=== PATIENT | female | born 1960 | race American Indian/Alaskan Native ===

== ENCOUNTER 2016-10-16 09:05 | Outpatient (CLI) | payer MEDICAID | END 2016-10-16 09:06 | disposition home or self-care (01) | LOC: LAB 09:05 | PROVIDERS: ATTEND Internal Medicine | DX: R06.02 Shortness of breath (principal) | CPT/HCPCS: 36415; 80061; 82785; 84439; 84443 ==

== ENCOUNTER 2017-09-23 07:01 | Day surgery (SDC) | payer MEDICAID ==
[2017-09-23] MEDS ORDERED: NACL 0.9% 500 ML 500 ML ONE (08:33)
[2017-09-23 08:57] LABS: Basophils # (Auto) 0.1 K/mm3 (0.0-0.1); Basophils % (Auto) 1.3 % (0.0-1.8); Eosinophils # (Auto) 0.3 K/mm3 (0.0-0.4); Hemoglobin 13.1 gm/dl (10.1-14.3); Lymphocytes # (Auto) 2.3 K/mm3 (1.2-5.4); Lymphocytes % (Auto) 38.6 % (13.4-35.0); Mean Corpuscular HGB Conc 33 % (30-34); Mean Corpuscular Hemoglobin 30 pg (28-32); Mean Corpuscular Volume 91 fl (79-97); Monocytes # (Auto) 0.5 K/mm3 (0.0-0.8); Monocytes % (Auto) 8.7 % (0.0-7.3); Platelet Count 241 K/mm3 (140-440); Red Blood Count 4.42 M/mm3 (3.65-5.03); Red Cell Distribution Width 15.2 % (13.2-15.2)
[2017-09-23] MEDS ORDERED: ECOTRIN PO NR (09:00)
[2017-09-23] MEDS ORDERED: NACL 0.9% 500 ML 500 ML IV SCH (09:00)
[2017-09-23 09:10] LABS: BUN/Creatinine Ratio 19; Blood Urea Nitrogen 15 mg/dL (7-17); Calcium 8.4 mg/dL (8.4-10.2); Hemolysis Index 3
[2017-09-23 09:16] LABS: INR 0.97 (0.87-1.13)
[2017-09-23] MEDS ORDERED: HEPARIN/NS 5000 UNIT/500ML(CATH LAB) 1,000 ML IR ONE (09:51)
[2017-09-23] MEDS ORDERED: HEPARIN 10,000 UNITS/10 ML ONE (09:51)
[2017-09-23] MEDS ORDERED: CALAN ONE (09:51)
[2017-09-23] MEDS ORDERED: NITROGLYCERIN SYRINGE 3 ML ONE (09:52)
[2017-09-23] MEDS ORDERED: XYLOCAINE 2% INFILTRATI ONE (09:52)
[2017-09-23] MEDS ORDERED: SUBLIMAZE ONE (09:56)
[2017-09-23] MEDS ORDERED: VERSED ONE (09:56)
--- NOTE | 2017-09-23 10:52 | Short Stay Summary ---
Short Stay Documentation Date of service: 09/23/17 - History H&P: obtained from office - Allergies and Medications Current Medications: Allergies sulfamethoxazole [From Bactrim] Allergy (Verified 04/21/16 02:53) Hives trimethoprim [From Bactrim] Allergy (Verified 04/21/16 02:53) Hives Home Medications Medication Instructions Recorded Confirmed Last Taken Type Aspirin [Aspirin BABY CHEW TAB] 81 mg PO QDAY 04/21/16 09/23/17 09/22/17 History 81mg Fluticasone/Salmeterol [Advair 1 puff IH BID #1 blst.w.dev 04/21/16 09/23/17 Rx Diskus 500-50 mcg] 1 Bimatoprost [Lumigan] 2 drops OU QHS 09/23/17 09/23/17 09/22/17 History 2 Metoprolol Xl [Metoprolol 100 mg PO DAILY 09/23/17 09/23/17 09/22/17 History SUCCINATE ER TAB] 100mg Tiotropium Mascot [Spiriva] 1 puff INHALATION DAILY 09/23/17 09/23/17 09/22/17 History 1 amLODIPine 200 mg PO DAILY 09/23/17 09/23/17 09/22/17 History 200mng Active Medications Sodium Chloride (Nacl 0.9% 500 Ml) 500 mls @ 50 mls/hr IV DIRECT WHITNEY Stop: 09/23/17 18:59 Last Admin: 09/23/17 09:01 Dose: 50 mls/hr - Physical exam General appearance: no acute distress Integumentary: no rash HEENT: Atraumatic Lungs: Clear to auscultation Breasts: deferred Heart: Regular rate Gastrointestinal: normal Female Genitourinary: deferred Rectal Exam: deferred Extremities: no ischemia, pulses symmetrical Neurological: Normal gait - Brief post op/procedure progress note Date of procedure: 09/23/17 Pre-op diagnosis: Cardiomyopathy, abnormal stress test Post-op diagnosis: same Procedure: LHC and LV gram Anesthesia: MAC Findings: See report Surgeon: VAISHNAVI SRINIVASAN Estimated blood loss: none Pathology: none Condition: stable - Hospital course Hospital course: Uneventful - Disposition Condition at discharge: Good Disposition: DC-01 TO HOME OR SELFCARE Short Stay Discharge Plan Activity: advance as tolerated Weight Bearing Status: Non-Weight Bearing Diet: low fat, low cholesterol, low salt Follow up with: MAYNOR CUELLAR MD [Primary Care Provider] - 7 Days Prescriptions: Amiodarone [Cordarone 200 MG TAB] 200 mg PO DAILY #30 tablet Irbesartan 150 mg PO DAILY #30 tablet
--- NOTE | 2017-09-23 11:52 | Cardiac Catherization Report ---
LEFT HEART CATHETERIZATION INDICATION: 1. Cardiomyopathy, shortness of breath, and chest tightness. 2. Fixed anterior wall defect, on myocardial perfusion imaging scan. PROCEDURES PERFORMED: 1. Selective left and right coronary angiography. 2. Left ventriculography. DESCRIPTION OF PROCEDURE: After obtaining the consent, the patient was draped using sterile technique. A 2% lidocaine was injected into the right wrist. A 5-Swedish vascular sheath was inserted into the right radial artery. A 5-Swedish JL3.5 catheter was used to selectively engage left coronary artery. A 5-Swedish JR4 catheter was used to selectively engage the right coronary artery. A 5-Swedish pigtail catheter was used to perform a left ventriculogram. No complications occurred during the procedure. Hemostasis was achieved at the end of the procedure using manual pressure. SPECIMEN: None. ESTIMATED BLOOD LOSS: Minimal. Sedation administered was 1 mg of IV Versed and 50 mcg of IV fentanyl. Physician and patient [id number] sedation start time is 10:06 a.m. Physician patient [id number] sedation stop time is 10:18 a.m. Total sedation time is 12 minutes. HEMODYNAMICS: 1. The aortic pressure was 165/97. 2. The left ventricular systolic pressure was 170 mmHg. There was no gradient noted across left ventricular outflow tract. 3. The left ventricular end-diastolic pressure was measured at 30 mmHg. CARDIAC STRUCTURES: The left ventricle is dilated. There is evidence of global left ventricular hypokinesis. The ejection fraction is estimated at 35%. CORONARY ANATOMY: 1. This is a right dominant circulation. 2. Left main is angiographically normal. 3. LAD is angiographically normal. 4. Circumflex artery is angiographically normal. 5. The right coronary artery is angiographically normal. IMPRESSION: 1. Angiographically normal coronary circulation. 2. Dilated and hypokinetic left ventricle with an ejection fraction estimated at 35%. 3. Findings are consistent with nonischemic cardiomyopathy. 4. LVEDP measured at 30 mmHg. RECOMMENDATIONS: Continue current medical management for nonischemic cardiomyopathy. JOB# [id number] RONEN/NIK
[2017-09-23 11:58] VITALS: BP 161/77
== END 2017-09-23 13:24 | disposition home or self-care (01) ==
LOC: CATHLABREC 07:01
PROVIDERS: ATTEND Internal Medicine
DX: I42.8 Other cardiomyopathies (principal); I11.0 Hypertensive heart disease with heart failure; I50.9 Heart failure, unspecified; M19.90 Unspecified osteoarthritis, unspecified site; J44.9 Chronic obstructive pulmonary disease, unspecified; G47.30 Sleep apnea, unspecified; E66.9 Obesity, unspecified; F32.9 Major depressive disorder, single episode, unspecified; Z79.82 Long term (current) use of aspirin; Z79.899 Other long term (current) drug therapy
CPT/HCPCS: 36415; 80048; 85025; 85610; 85730; 93005; 93010; 93458; 99156; 99157; C1894; J1644; J2250; J3010; J7040; Q9967

== ENCOUNTER 2018-09-19 13:29 | Emergency (ER) | payer MEDICAID ==
[2018-09-19] MEDS ORDERED: SOLU-Medrol IV ONE (13:49)
[2018-09-19] MEDS ORDERED: ATROVENT IH ONE (13:49)
[2018-09-19] MEDS ORDERED: PROVENTIL IH ONE (13:49)
[2018-09-19] MEDS ORDERED: MORPHINE IV ONE (13:53)
[2018-09-19] MEDS ORDERED: ZOFRAN IV ONE (13:53)
[2018-09-19] MEDS ORDERED: XYLOCAINE 2% INFILTRATI ONE (13:53)
--- NOTE | 2018-09-19 13:53 | Emergency Department Report ---
ED Shortness of Breath HPI - General Chief Complaint: Dyspnea/Respdistress Stated Complaint: YOSSI Time Seen by Provider: 09/19/18 13:43 Source: patient, EMS Mode of arrival: Stretcher Limitations: No Limitations - History of Present Illness Initial Comments: Patient is 58 years old female history of COPD, CHF and hypertension. Patient presented to the ER via EMS for shortness of breath, cough productive freezer greenish sputum for the last 3 days. Patient stated that she has been using her albuterol was not helping. Patient denied any fever or chills. No chest pain. MD Complaint: shortness of breath, cough -: days(s) Severity: moderate Improves With: bronchodilators Known History Of: COPD, congestive heart failure Context: recent URI - Related Data Home Medications Medication Instructions Recorded Confirmed Last Taken Bimatoprost [Lumigan] 1 drops OU QHS 09/23/17 12/08/17 09/22/17 2 Meloxicam [Mobic] 7.5 mg PO QDAY 12/08/17 12/08/17 Unknown Previous Rx's Medication Instructions Recorded Last Taken Type Fluticasone/Salmeterol [Advair 1 puff IH BID #1 blst.w.dev 04/21/16 09/22/17 Rx Diskus 500-50 mcg] 1 Irbesartan 150 mg PO DAILY #30 tablet 09/23/17 Unknown Rx Amiodarone [Cordarone 200 MG TAB] 200 mg PO DAILY #30 tablet 12/10/17 Unknown Rx Arformoterol Nebu [Brovana Nebu] 15 mcg IH Q12HRT #1 ml 12/10/17 Unknown Rx Aspirin [Aspirin BABY CHEW TAB] 81 mg PO QDAY #100 tab.chew 12/10/17 Unknown Rx Budesonide [Pulmicort Respules] 0.5 mg IH Q12HRT #60 nebu 12/10/17 Unknown Rx Furosemide [Lasix TAB] 40 mg PO QDAY #30 tablet 12/10/17 Unknown Rx Latanoprost 0.005% 2 drops OU QPM bottle 12/10/17 Unknown Rx Lisinopril [Zestril TAB] 5 mg PO QDAY #30 tablet 12/10/17 Unknown Rx Metoprolol Xl [Metoprolol 100 mg PO DAILY #30 tablet 12/10/17 Unknown Rx SUCCINATE ER TAB] Potassium Chloride [K-Dur] 20 meq PO QDAY #30 tablet 12/10/17 Unknown Rx Tiotropium [Spiriva] 1 puff IH DAILY #1 cap 12/10/17 Unknown Rx Allergies Allergy/AdvReac Type Severity Reaction Status Date / Time sulfamethoxazole Allergy Hives Verified 04/21/16 02:53 [From Bactrim] trimethoprim [From Bactrim] Allergy Hives Verified 04/21/16 02:53 ED Review of Systems ROS: Stated complaint: YOSSI Other details as noted in HPI Comment: All other systems reviewed and negative Constitutional: denies: chills, fever Respiratory: cough, shortness of breath, SOB with exertion, SOB at rest, wheezing. denies: orthopnea Cardiovascular: denies: chest pain, palpitations Gastrointestinal: denies: abdominal pain, nausea, vomiting, diarrhea, constipation, hematemesis, hematochezia Musculoskeletal: denies: back pain Neurological: denies: headache, weakness, numbness, paresthesias, confusion ED Past Medical Hx - Past Medical History Hx Hypertension: Yes Hx Heart Attack/AMI: Yes (2004) Hx Congestive Heart Failure: Yes Hx Arthritis: Yes Hx Psychiatric Treatment: Yes (PTSD) Hx Asthma: Yes Hx COPD: Yes Additional medical history: hepatitis C, CAD, Sleep apnea, GERD - Surgical History Past Surgical History?: Yes Additional Surgical History: open heart surgery, left knee replacement, apoorva in right leg, surgical repair of disc in neck - Social History Smoking Status: Current Every Day Smoker Substance Use Type: None - Medications Home Medications: Home Medications Medication Instructions Recorded Confirmed Last Taken Type Fluticasone/Salmeterol [Advair 1 puff IH BID #1 blst.w.dev 04/21/16 12/08/17 09/22/17 Rx Diskus 500-50 mcg] 1 Bimatoprost [Lumigan] 1 drops OU QHS 09/23/17 12/08/17 09/22/17 History 2 Irbesartan 150 mg PO DAILY #30 tablet 09/23/17 12/08/17 Unknown Rx Meloxicam [Mobic] 7.5 mg PO QDAY 12/08/17 12/08/17 Unknown History Amiodarone [Cordarone 200 MG TAB] 200 mg PO DAILY #30 tablet 12/10/17 Unknown Rx Arformoterol Nebu [Brovana Nebu] 15 mcg IH Q12HRT #1 ml 12/10/17 Unknown Rx Aspirin [Aspirin BABY CHEW TAB] 81 mg PO QDAY #100 tab.chew 12/10/17 Unknown Rx Budesonide [Pulmicort Respules] 0.5 mg IH Q12HRT #60 nebu 12/10/17 Unknown Rx Furosemide [Lasix TAB] 40 mg PO QDAY #30 tablet 12/10/17 Unknown Rx Latanoprost 0.005% 2 drops OU QPM bottle 12/10/17 Unknown Rx Lisinopril [Zestril TAB] 5 mg PO QDAY #30 tablet 12/10/17 Unknown Rx Metoprolol Xl [Metoprolol 100 mg PO DAILY #30 tablet 12/10/17 Unknown Rx SUCCINATE ER TAB] Potassium Chloride [K-Dur] 20 meq PO QDAY #30 tablet 12/10/17 Unknown Rx Tiotropium [Spiriva] 1 puff IH DAILY #1 cap 12/10/17 Unknown Rx ED Physical Exam - General Limitations: No Limitations General appearance: alert, in no apparent distress - Head Head exam: Present: atraumatic, normocephalic, normal inspection - Eye Eye exam: Present: normal appearance, PERRL - ENT ENT exam: Present: normal exam, normal orophraynx, mucous membranes moist - Neck Neck exam: Present: normal inspection, full ROM. Absent: tenderness, meningismus, lymphadenopathy, thyromegaly - Respiratory Respiratory exam: Present: wheezes, rhonchi, decreased breath sounds, prolonged expiratory. Absent: respiratory distress, rales, stridor, chest wall tenderness, accessory muscle use - Cardiovascular Cardiovascular Exam: Present: regular rate, normal rhythm, normal heart sounds. Absent: bradycardia, tachycardia, irregular rhythm, systolic murmur, diastolic murmur, rubs - GI/Abdominal GI/Abdominal exam: Present: soft, normal bowel sounds. Absent: distended, tenderness, guarding, rebound, rigid, organomegaly, mass, bruit, pulsatile mass, hernia - Extremities Exam Extremities exam: Present: normal inspection, full ROM, normal capillary refill. Absent: pedal edema, calf tenderness - Back Exam Back exam: Present: normal inspection, full ROM - Neurological Exam Neurological exam: Present: alert, oriented X3, CN II-XII intact, normal gait - Skin Skin exam: Present: warm, intact, normal color ED Course Vital Signs 09/19/18 09/19/18 09/19/18 14:00 14:07 14:10 Pulse Rate [ 72 74 72 Anterior Bilateral Throughout] Respiratory 20 18 18 Rate [Anterior Bilateral Throughout] 09/19/18 14:20 Pulse Rate [ 68 Anterior Bilateral Throughout] Respiratory 16 Rate [Anterior Bilateral Throughout] ED Medical Decision Making - Lab Data Result diagrams: 09/19/18 13:57 09/19/18 13:57 - Radiology Data Radiology results: report reviewed Referring Physician: ROBERT LIEBERMAN Patient Name: MABLE NIELSEN Date of : 1960 Sex: Female Report Date: 2018-09-19 Report Status: Finalized Findings [facility] [address] [place] [address] XRay Report Signed Patient: MABLE NIELSEN MR#: [id number] : 1960 Acct:[id number] Age/Sex: 58 / F ADM Date: 09/19/18 Loc: ED Attending Dr: Ordering Physician: RBOERT LIEBERMAN Date of Service: 09/19/18 Procedure(s): XR chest 1V ap Accession Number(s): [id number] cc: ROBERT LIEBERMAN Fluoro Time In Minutes: FINAL REPORT EXAM: XR CHEST 1V AP HISTORY: Shortness of breath TECHNIQUE: Frontal chest radiograph. PRIORS: 01/10/2016. FINDINGS: Unchanged cardiomegaly. Unchanged linear scarring in the left upper lobe. Patchy left lower lobe opacities are seen. There is mild central pulmonary vascular congestion. No pleural effusion. No pneumothorax. No acute osseous abnormality. IMPRESSION: Cardiomegaly with mild central pulmonary vascular congestion. Left lower lobe atelectasis versus pneumonia. Transcribed By: MG Dictated By: HALLIE RENTERIA MD Electronically Authenticated By: HALLIE RENTERIA MD Signed Date/Time: 09/19/181446 DD/ 46 TD/TT: 09/19/181446 - Medical Decision Making Patient is 58 years old female history of COPD, CHF and hypertension. Patient presented to the ER via EMS for shortness of breath, cough productive freezer greenish sputum for the last 3 days. Patient stated that she has been using her albuterol was not helping. Patient denied any fever or chills. No chest pain. Patient stated that she is feeling much better. Lung is clear on both sides. I advised the patient to follow up with her primary care physician in the next 2-3 days and to return to the emergency room if her symptoms are not improved. Critical care attestation.: If time is entered above; I have spent that time in minutes in the direct care of this critically ill patient, excluding procedure time. ED Disposition Clinical Impression: COPD exacerbation, Bronchitis Disposition: DC-01 TO HOME OR SELFCARE Is pt being admited?: No Condition: Stable Instructions: Chronic Obstructive Pulmonary Disease (ED), Chronic Bronchitis (ED) Referrals: PRIMARY CARE, [Primary Care Provider] - 3-5 Days
[2018-09-19 14:13] LABS: Basophils # (Auto) 0.2 K/mm3 (0.0-0.1); Basophils % (Auto) 2.3 % (0.0-1.8); Eosinophils # (Auto) 0.4 K/mm3 (0.0-0.4); Hematocrit 39.1 % (30.3-42.9); Hemoglobin 13.1 gm/dl (10.1-14.3); Lymphocytes # (Auto) 2.1 K/mm3 (1.2-5.4); Lymphocytes % (Auto) 31.1 % (13.4-35.0); Mean Corpuscular HGB Conc 33 % (30-34); Mean Corpuscular Volume 90 fl (79-97); Monocytes # (Auto) 0.6 K/mm3 (0.0-0.8); Monocytes % (Auto) 9.7 % (0.0-7.3); Platelet Count 250 K/mm3 (140-440); Red Blood Count 4.34 M/mm3 (3.65-5.03); Red Cell Distribution Width 14.7 % (13.2-15.2)
[2018-09-19 14:23] LABS: BUN/Creatinine Ratio 14; Blood Urea Nitrogen 14 mg/dL (7-17); Hemolysis Index 30
--- NOTE | 2018-09-19 14:47 | XRay Report ---
FINAL REPORT EXAM: XR CHEST 1V AP HISTORY: Shortness of breath TECHNIQUE: Frontal chest radiograph. PRIORS: 01/10/2016. FINDINGS: Unchanged cardiomegaly. Unchanged linear scarring in the left upper lobe. Patchy left lower lobe opacities are seen. There is mild central pulmonary vascular congestion. No pleural effusion. No pneumothorax. No acute osseous abnormality. IMPRESSION: Cardiomegaly with mild central pulmonary vascular congestion. Left lower lobe atelectasis versus pneu monia.
[2018-09-19] MEDS ORDERED: LEVAQUIN PO ONE (15:05)
== END 2018-09-19 15:49 | disposition home or self-care (01) ==
LOC: ED 13:29
DX: J44.1 Chronic obstructive pulmonary disease with (acute) exacerbation (principal); J40 Bronchitis, not specified as acute or chronic; I11.0 Hypertensive heart disease with heart failure; I50.9 Heart failure, unspecified; I25.2 Old myocardial infarction; M19.90 Unspecified osteoarthritis, unspecified site; F43.10 Post-traumatic stress disorder, unspecified; F17.200 Nicotine dependence, unspecified, uncomplicated; Z79.899 Other long term (current) drug therapy; Z88.2 Allergy status to sulfonamides
CPT/HCPCS: 36415; 71045; 80048; 85025; 93005; 93010; 94640; 96374; 96375; 99284; J2270; J2405; J2930

== ENCOUNTER 2018-11-25 17:03 | Emergency (ER) | payer MEDICAID ==
[2018-11-25 18:09] VITALS: BP 127/79
[2018-11-25 18:33] LABS: Basophils # (Auto) 0.1 K/mm3 (0.0-0.1); Basophils % (Auto) 0.8 % (0.0-1.8); Eosinophils % (Auto) 0.1 % (0.0-4.3); Hematocrit 44.6 % (30.3-42.9); Hemoglobin 14.6 gm/dl (10.1-14.3); Lymphocytes # (Auto) 1.2 K/mm3 (1.2-5.4); Lymphocytes % (Auto) 10.7 % (13.4-35.0); Mean Corpuscular HGB Conc 33 % (30-34); Mean Corpuscular Volume 93 fl (79-97); Monocytes # (Auto) 0.5 K/mm3 (0.0-0.8); Monocytes % (Auto) 4.4 % (0.0-7.3); Platelet Count 241 K/mm3 (140-440); Red Blood Count 4.82 M/mm3 (3.65-5.03); Red Cell Distribution Width 14.8 % (13.2-15.2)
[2018-11-25] MEDS ORDERED: MORPHINE IV ONE (18:36)
[2018-11-25] MEDS ORDERED: NACL 0.9% 1000 ML 1,000 ML IV ONE (18:36)
[2018-11-25] MEDS ORDERED: DECADRON IV ONE (18:36)
[2018-11-25] MEDS ORDERED: TORADOL IV ONE (18:36)
--- NOTE | 2018-11-25 18:48 | Emergency Department Report ---
ED Back Pain/Injury HPI - General Chief Complaint: Back Pain/Injury Stated Complaint: SCIATICA Time Seen by Provider: 11/25/18 17:48 Source: patient Limitations: No Limitations - History of Present Illness Initial Comments: This is a 58-year-old female nontoxic, well nourished in appearance, no acute signs of distress presents to the ED with c/o of acute on chronic lower back p ain. Patient stated that the past 2 days she was moving and developed this pain. Patient states has history of sciatica nerve pain which is similar symptoms as today. Patient states that pain radiates through to his left lower extremity. Patient stated that walking is difficult due to pain. Patient denies any trauma. Denies any bladder or bowel instability. Patient denies any urinary symptoms. Denies any fever, chills, nausea, vomiting, headache, stiff neck, chest pain or shortness of breath. Patient denies any numbness or tingling. Patient has allergies to Bactrim. MD Complaint: back pain -: days(s) (2) Similar Symptoms Previously: Yes Place: home Radiation: left leg Severity: mild Severity scale (0 -10): 10 Quality: aching Consistency: constant Improves With: immobilization Worsens With: movement, walking Context: while lifting, turning/twisting Associated Symptoms: denies other symptoms. denies: confusion, weakness, chest pain, numbness, difficulty walking, cough, difficulty urinating, diaphoresis, incontinence, fever/chills, constipation, headaches, abdominal pain, loss of appetite, malaise, nausea/vomiting, rash, seizure, shortness of breath, syncope - Related Data Home Medications Medication Instructions Recorded Confirmed Last Taken Bimatoprost [Lumigan] 1 drops OU QHS 09/23/17 12/08/17 09/22/17 2 Meloxicam [Mobic] 7.5 mg PO QDAY 12/08/17 12/08/17 Unknown Previous Rx's Medication Instructions Recorded Last Taken Type Fluticasone/Salmeterol [Advair 1 puff IH BID #1 blst.w.dev 04/21/16 09/22/17 Rx Diskus 500-50 mcg] 1 Irbesartan 150 mg PO DAILY #30 tablet 09/23/17 Unknown Rx Amiodarone [Cordarone 200 MG TAB] 200 mg PO DAILY #30 tablet 12/10/17 Unknown Rx Arformoterol Nebu [Brovana Nebu] 15 mcg IH Q12HRT #1 ml 12/10/17 Unknown Rx Aspirin [Aspirin BABY CHEW TAB] 81 mg PO QDAY #100 tab.chew 12/10/17 Unknown Rx Budesonide [Pulmicort Respules] 0.5 mg IH Q12HRT #60 nebu 12/10/17 Unknown Rx Furosemide [Lasix TAB] 40 mg PO QDAY #30 tablet 12/10/17 Unknown Rx Latanoprost 0.005% 2 drops OU QPM bottle 12/10/17 Unknown Rx Lisinopril [Zestril TAB] 5 mg PO QDAY #30 tablet 12/10/17 Unknown Rx Metoprolol Xl [Metoprolol 100 mg PO DAILY #30 tablet 12/10/17 Unknown Rx SUCCINATE ER TAB] Potassium Chloride [K-Dur] 20 meq PO QDAY #30 tablet 12/10/17 Unknown Rx Tiotropium [Spiriva] 1 puff IH DAILY #1 cap 12/10/17 Unknown Rx ALBUTEROL Inhaler (OR & NICU) 2 puff IH QID PRN #1 inhalation 09/19/18 Unknown Rx [ProAir HFA Inhaler] Prednisone [predniSONE 10 mg 10 mg PO .TAPER #1 tab.ds.pk 09/19/18 Unknown Rx (6-Day Pack, 21 Tabs)] levoFLOXacin [Levaquin TAB] 500 mg PO QDAY #7 tablet 09/19/18 Unknown Rx Docusate Sodium [Colace] 100 mg PO BID PRN #14 capsule 11/25/18 Unknown Rx Oxycodone HCl/Acetaminophen 1 each PO Q6HR PRN #12 tablet 11/25/18 Unknown Rx [Percocet 7.5/325 mg] Allergies Allergy/AdvReac Type Severity Reaction Status Date / Time sulfamethoxazole Allergy Hives Verified 04/21/16 02:53 [From Bactrim] trimethoprim [From Bactrim] Allergy Hives Verified 04/21/16 02:53 ED Review of Systems ROS: Stated complaint: SCIATICA Other details as noted in HPI Constitutional: denies: chills, fever Eyes: denies: eye pain, eye discharge, vision change ENT: denies: ear pain, throat pain Respiratory: denies: cough, shortness of breath, wheezing Cardiovascular: denies: chest pain, palpitations Endocrine: no symptoms reported Gastrointestinal: denies: abdominal pain, nausea, diarrhea Genitourinary: denies: urgency, dysuria, discharge Musculoskeletal: back pain. denies: joint swelling, arthralgia Skin: denies: rash, lesions Neurological: denies: headache, weakness, paresthesias Psychiatric: denies: anxiety, depression Hematological/Lymphatic: denies: easy bleeding, easy bruising ED Past Medical Hx - Past Medical History Previous Medical History?: Yes Hx Hypertension: Yes Hx Heart Attack/AMI: Yes (2005) Hx Congestive Heart Failure: Yes Hx Arthritis: Yes Hx Psychiatric Treatment: Yes (PTSD) Hx Asthma: Yes Hx COPD: Yes Additional medical history: hepatitis C, CAD, Sleep apnea, GERD - Surgical History Past Surgical History?: Yes Additional Surgical History: open heart surgery, left knee replacement, apoorva in right leg, surgical repair of disc in neck - Social History Smoking Status: Current Every Day Smoker Substance Use Type: None - Medications Home Medications: Home Medications Medication Instructions Recorded Confirmed Last Taken Type Fluticasone/Salmeterol [Advair 1 puff IH BID #1 blst.w.dev 04/21/16 12/08/17 09/22/17 Rx Diskus 500-50 mcg] 1 Bimatoprost [Lumigan] 1 drops OU QHS 09/23/17 12/08/17 09/22/17 History 2 Irbesartan 150 mg PO DAILY #30 tablet 09/23/17 12/08/17 Unknown Rx Meloxicam [Mobic] 7.5 mg PO QDAY 12/08/17 12/08/17 Unknown History Amiodarone [Cordarone 200 MG TAB] 200 mg PO DAILY #30 tablet 12/10/17 Unknown Rx Arformoterol Nebu [Brovana Nebu] 15 mcg IH Q12HRT #1 ml 12/10/17 Unknown Rx Aspirin [Aspirin BABY CHEW TAB] 81 mg PO QDAY #100 tab.chew 12/10/17 Unknown Rx Budesonide [Pulmicort Respules] 0.5 mg IH Q12HRT #60 nebu 12/10/17 Unknown Rx Furosemide [Lasix TAB] 40 mg PO QDAY #30 tablet 12/10/17 Unknown Rx Latanoprost 0.005% 2 drops OU QPM bottle 12/10/17 Unknown Rx Lisinopril [Zestril TAB] 5 mg PO QDAY #30 tablet 12/10/17 Unknown Rx Metoprolol Xl [Metoprolol 100 mg PO DAILY #30 tablet 12/10/17 Unknown Rx SUCCINATE ER TAB] Potassium Chloride [K-Dur] 20 meq PO QDAY #30 tablet 12/10/17 Unknown Rx Tiotropium [Spiriva] 1 puff IH DAILY #1 cap 12/10/17 Unknown Rx ALBUTEROL Inhaler (OR & NICU) 2 puff IH QID PRN #1 inhalation 09/19/18 Unknown Rx [ProAir HFA Inhaler] Prednisone [predniSONE 10 mg 10 mg PO .TAPER #1 tab.ds.pk 09/19/18 Unknown Rx (6-Day Pack, 21 Tabs)] levoFLOXacin [Levaquin TAB] 500 mg PO QDAY #7 tablet 09/19/18 Unknown Rx Docusate Sodium [Colace] 100 mg PO BID PRN #14 capsule 11/25/18 Unknown Rx Oxycodone HCl/Acetaminophen 1 each PO Q6HR PRN #12 tablet 11/25/18 Unknown Rx [Percocet 7.5/325 mg] ED Physical Exam - General Limitations: No Limitations General appearance: alert, in no apparent distress - Head Head exam: Present: atraumatic, normocephalic - Eye Eye exam: Present: normal appearance - Neck Neck exam: Present: normal inspection, full ROM. Absent: tenderness, m eningismus, lymphadenopathy - Respiratory Respiratory exam: Present: normal lung sounds bilaterally. Absent: respiratory distress, wheezes, rales, rhonchi, stridor, chest wall tenderness, accessory muscle use, decreased breath sounds, prolonged expiratory - Cardiovascular Cardiovascular Exam: Present: regular rate, normal rhythm, normal heart sounds. Absent: bradycardia, tachycardia, irregular rhythm, systolic murmur, diastolic murmur, rubs, gallop - GI/Abdominal GI/Abdominal exam: Present: soft, normal bowel sounds. Absent: distended, tenderness, guarding, rebound, rigid, diminished bowel sounds - Extremities Exam Extremities exam: Present: normal inspection, full ROM - Back Exam Back exam: Present: normal inspection, full ROM, paraspinal tenderness (paraspinal area). Absent: tenderness, CVA tenderness (R), CVA tenderness (L), muscle spasm, vertebral tenderness, rash noted - Neurological Exam Neurological exam: Present: alert, oriented X3 - Psychiatric Psychiatric exam: Present: normal affect, normal mood - Skin Skin exam: Present: warm, dry, intact, normal color. Absent: rash ED Course Vital Signs 11/25/18 11/25/18 18:02 20:05 Temperature 98.3 F Pulse Rate 73 Respiratory 16 18 Rate Blood Pressure 127/79 [Right] O2 Sat by Pulse 94 Oximetry - Reevaluation(s) Reevaluation #1: 11/25/18 18:49 Patient is speaking in full sentences with no signs of distress noted. ED Medical Decision Making - Lab Data Result diagrams: 11/25/18 18:16 11/25/18 18:16 - Medical Decision Making This is a 58-year-old female that presents with low back strain. Patient is stable was examined by me. There is no spinal tenderness. There is no cauda equina syndrome during examination. No bladder or bowel instability. Patient has been notified of the CT with contrast has been obtained of lumbar spine and dictated by radiologist with a impression of stenosis. CT results with no questions noted by the patient. Patient received medical treatment in the ED which stated that her symptoms has resolved and subsided. Patient stated wants to be admitted because she believes that pain will return. Patient agrees to living with son and daugther which does help patient. electric utility lineworker has been consulted and pending for tomorrow morning to call the patient back. Patient is discharged with Percocet for pain and colace. Patient also received a walker due to intermittent back pains. Patient was consulted with Don Lott, patient history, physical exam, lab/CT results and agrees to discharge plan of care with follow-up. Patient was instructed not to operate any machinery while taking Percocet as they cause her drowsiness. At the time of discharge patient that a family member. The patient home due to possible drowsiness of the medical treatment that was given in the ER. Patient was referred to Follow-up with a primary care doctor in 3-5 days or if symptoms worsen and continue return to emergency room as soon as possible. At time of discharge, the patient does not seem toxic or ill in appearance. No acute signs of distress noted. Patient agrees to discharge treatment plan of care. No further questions noted by the patient. This chart is dictated with using [employer] Dictation Program Critical care attestation.: If time is entered above; I have spent that time in minutes in the direct care of this critically ill patient, excluding procedure time. ED Disposition Clinical Impression: Chronic back pain Qualifiers: Back pain location: low back pain Back pain laterality: left Sciatica presence: with sciatica Sciatica laterality: sciatica of left side Qualified Code(s): M54.42 - Lumbago with sciatica, left side; G89.29 - Other chronic pain Disposition: TO HOME OR SELFCARE Is pt being admited?: No Does the pt Need Aspirin: No Condition: Stable Instructions: Chronic Back Pain (ED), Oxycodone/Acetaminophen (By mouth) Additional Instructions: Follow-up with your primary care doctor in 3-5 days or if symptoms worsen such as bladder or bowel stability, chest pain, short of breath, numbness or tingling sensation in extremities, headache, dizziness, visual changes, nausea vomiting, or abdominal pain, return back to emergency room as was possible. Take Percocet as prescribed. Do not operate heavy machinery while taking Percocet due to sedation Prescriptions: Docusate Sodium [Colace] 100 mg PO BID PRN #14 capsule PRN Reason: Constipation Oxycodone HCl/Acetaminophen [Percocet 7.5/325 mg] 1 each PO Q6HR PRN #12 tablet PRN Reason: Pain Referrals: MAYNOR CUELLAR MD [Primary Care Provider] - 3-5 Days PRIMARY CAREMD [Referring] - 3-5 Days JOVANA AHUJA MD [Staff Physician] - 3-5 Days WILMAN WATT MD [Staff Physician] - 3-5 Days [facility] [Outside] - 3-5 Days
[2018-11-25 18:51] LABS: BUN/Creatinine Ratio 26; Blood Urea Nitrogen 18 mg/dL (7-17); Calcium 8.9 mg/dL (8.4-10.2); Hemolysis Index 11
[2018-11-25] MEDS ORDERED: NACL 0.9% 1000 ML 1,000 ML ONE (19:39)
--- NOTE | 2018-11-25 21:08 | Cat Scan Report ---
PROCEDURE: CT LUMBAR SPINE W CON TECHNIQUE: Axial images were performed from the thoracolumbar junction to the mid sacrum. Multiplana r reformats were performed on the acquisition scanner. Total exam DLP 1096.80 mGy-centimeter HISTORY: low back pain COMPARISONS: None FINDINGS: There is straightening of the normal lumbar lordosis. Vertebral body heights are maintained. There are marginal osteophytes from L2 to S1. There is mild disc space narrowing throughout. There is subtle retrolisthesis from L4 to S1. There is extensive facet hypertrophy. No significant scoliosis. Vacuum discs L3/L4 and L4/L5. Extremely obese patient body habitus. Image retroperitoneum is grossly unremarkable. Large stool ball in the rectum. Axial images demonstrate: At T12/L1, mild broad-based bulge with facet osteoarthritis, likely borderline canal stenosis. No def inite foraminal stenosis. At L1/L2, broad-based bulge, facet osteoarthritis, likely canal stenosis to about 8 mm. Patient likel y has congenitally short pedicles. Likely bilateral foraminal stenosis. At L2/L3, broad-based bulge. Canal stenosis to 5 mm. Bilateral foraminal stenosis compounded by facet osteoarthritis. At L3/L4, central disc bulge and broad-based right paracentral bulge compounded by facet osteoarthrit is. Canal stenosis to about 5 mm. Bilateral foraminal stenosis. At L4/L5, broad-based bulge, facet osteoarthritis. Canal stenosis to 5 mm. At L5/S1, broad-based bulge. Canal stenosis to 6 mm. Bilateral foraminal stenosis. 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 The clinically imp ortant level is not identified at the current time. Multilevel vacuum disc. No compression fracture. No significant listhesis. Morbidly obese patient. Consider MRI for further delineation and correlation with physical exam. Patient appears to be mildly constipated. This document is electronically signed by Sharon Quiles MD., Nov 25 2018 09:06:36 PM ET
[2018-11-25 22:14] LABS: Bacteria,Urine 1+ /HPF (Negative); Bilirubin,Urine NEG (Negative); Blood,Urine NEG (Negative); Color,Urine Yellow (Yellow); Mucus,Urine FEW /HPF; Protein,Urine <15 mg/dL mg/dL (Negative)
[2018-11-26] MEDS ORDERED: FLEXERIL PO ONE (00:05)
[2018-11-26] MEDS ORDERED: FLEXERIL ONE (00:09)
== END 2018-11-25 22:45 | disposition home or self-care (01) ==
LOC: ED 17:03
DX: M54.42 Lumbago with sciatica, left side (principal); G89.29 Other chronic pain; I25.2 Old myocardial infarction; I11.0 Hypertensive heart disease with heart failure; I50.9 Heart failure, unspecified; M19.90 Unspecified osteoarthritis, unspecified site; J44.9 Chronic obstructive pulmonary disease, unspecified; F17.200 Nicotine dependence, unspecified, uncomplicated
CPT/HCPCS: 36415; 72132; 80048; 81001; 85025; 96374; 96375; 99284; J1100; J1885; J2270; J7030; Q9967

== ENCOUNTER 2019-05-25 18:16 | Emergency (ER) | payer MEDICAID ==
[2019-05-25 18:38] VITALS: BP 96/63
--- NOTE | 2019-05-25 18:40 | Event Note ---
ED Screening Note Date of service: 05/25/18 Time: 18:37 ED Screening Note: Pt complains of right knee pain x 2 days. states knee keeps buckling and giving out denies injury +hx of knee arthritis hc of left knee replacement This initial assessment/diagnostic orders/clinical plan/treatment(s) is/are subject to change based on patients health status, clinical progression and re- assessment by fellow clinical providers in the ED. Further treatment and workup at subsequent clinical providers discretion. Patient/guardian urged not to elope from the ED as their condition may be serious if not clinically assessed and managed. Initial orders include: XR
--- NOTE | 2019-05-25 19:41 | XRay Report ---
RIGHT KNEE 3 VIEWS INDICATION / CLINICAL INFORMATION: pain, no injury, hx of arthritis. COMPARISON: None available. FINDINGS: There has been previous fracture ORIF of the right proximal tibia with Y-shaped tibial intramedullary nail and screws. Moderate degenerative arthrosis is seen within the right knee. No acute fracture, d islocation or right knee effusion is present. Signer Name: Edi Bui MD Signed: 05/25/2019 7:37 PM Workstation Name: [id number]
== END 2019-05-25 19:09 | disposition left against medical advice (07) ==
LOC: ED 18:16
DX: M25.561 Pain in right knee (principal); Z53.21 Procedure and treatment not carried out due to patient leaving prior to being seen by health care provider

== ENCOUNTER 2019-05-30 07:40 | Emergency (ER) | payer MEDICAID ==
[2019-05-30] MEDS ORDERED: methylPREDNISolone Sod Succinate 125 MG/2 ML INJ IV ONE (08:19)
[2019-05-30] MEDS ORDERED: IPRATROPIUM 0.02% NEBU 2.5 ML IH ONE (08:20)
[2019-05-30] MEDS ORDERED: ALBUTEROL 2.5 MG/3 ML NEBU IH ONE (08:20)
--- NOTE | 2019-05-30 08:24 | Emergency Department Report ---
HPI - General Chief Complaint: Dyspnea/Respdistress Time Seen by Provider: 05/30/19 08:05 - HPI HPI: 58-year-old -Burm[place] female presents to the emergency department with complaint of a 2 day history of shortness of breath, wheezing, coughing and a "hot chest." She also complains of a generalized headache over this time. She denies any vision change, slurred speech or any neurological deficits. She denies any fever, back pain, lower extremity swelling. She has a past medical history of COPD but is not oxygen dependent. She also has a history of CHF, diabetes, coronary artery disease with previous [place], hypertension, obstructive sleep apnea on CPAP and previous hepatitis C. She says that she has been using her inhaler and nebulizer at home without any relief. She quit smoking tobacco about 3 months ago and denies any illicit drug use. Primary care physician is Dr. Maynor Barahona and power barker operator is Dr. Ramos. No recent travel or sick contacts at home. ED Past Medical Hx - Past Medical History Previous Medical History?: Yes Hx Hypertension: Yes Hx Heart Attack/AMI: Yes (2005) Hx Congestive Heart Failure: Yes Hx Diabetes: Yes Hx Arthritis: Yes Hx Psychiatric Treatment: Yes (PTSD) Hx Asthma: Yes Hx COPD: Yes Additional medical history: hepatitis C, CAD, Sleep apnea, GERD - Surgical History Past Surgical History?: Yes Additional Surgical History: open heart surgery, left knee replacement, apoorva in right leg, surgical repair of disc in neck - Social History Smoking Status: Never Smoker Substance Use Type: None - Medications Home Medications: Home Medications Medication Instructions Recorded Confirmed Last Taken Type Biotin [Biotin 10,000 rapdis] 10,000 mcg PO DAILY 04/12/19 04/12/19 Unknown History Diclofenac Sodium 75 mg PO DAILY 04/12/19 04/12/19 04/12/19 07:00 History Furosemide [Lasix TAB] 40 mg PO QDAY 04/12/19 04/12/19 Unknown History Gabapentin [Neurontin] 600 mg PO BID 04/12/19 04/12/19 04/12/19 07:00 History 600 Losartan Potassium 50 mg PO DAILY 04/12/19 04/12/19 Unknown History metFORMIN [Glucophage] 500 mg PO BID 04/12/19 04/12/19 Unknown History raNITIdine HCl [Zantac] PRN 04/13/19 Unknown History Budesonide/Formoterol Fumarate 10.2 gm IH BID #1 hfa.aer.ad 04/14/19 Unknown Rx [Symbicort 160-4.5 Mcg Inhaler] Carvedilol [Coreg] 3.125 mg PO BID #60 tablet 04/14/19 Unknown Rx Ipratropium/Albuter (Nf) 2 puff IH QID #1 inha 04/14/19 Unknown Rx [Combivent Inhaler] Prednisone [predniSONE 10 mg 10 mg PO .TAPER #1 tab.ds.pk 04/14/19 Unknown Rx (6-Day Pack, 21 Tabs)] Tiotropium [place] [Spiriva 1 puff IH DAILY #1 mist.inhal 04/14/19 Unknown Rx Respimat] ALBUTEROL Inhaler (OR & NICU) 2 puff IH QID PRN #1 pump 05/30/19 Unknown Rx [ProAir HFA Inhaler] ALBUTEROL NEB's [Proventil 0.083% 2.5 mg IH TID PRN #90 neb 05/30/19 Unknown Rx NEBS] Benzonatate [Tessalon Perles] 100 mg PO Q8HR PRN #20 capsule 05/30/19 Unknown Rx predniSONE [Deltasone] 20 mg PO QDAY #5 tab 05/30/19 Unknown Rx ED Review of Systems ROS: Stated complaint: SOB/HEADACHE/COUGHING Other details as noted in HPI Comment: All other systems reviewed and negative Constitutional: denies: chills, fever Eyes: denies: eye pain, vision change ENT: denies: ear pain, throat pain Respiratory: cough, shortness of breath, wheezing Cardiovascular: denies: palpitations, edema Gastrointestinal: denies: abdominal pain, vomiting Genitourinary: denies: dysuria, discharge Musculoskeletal: denies: back pain, arthralgia Skin: denies: rash, lesions Neurological: headache. denies: weakness, numbness Physical Exam - Physical Exam Physical Exam: GENERAL: The patient is well-developed well-nourished. HENT: Normocephalic. Atraumatic. Patient has moist mucous membranes. EYES: Extraocular motions are intact. Pupils equal reactive to light bilaterally. NECK: Supple. Trachea is midline. CHEST/LUNGS: Mild wheezing throughout the chest. No tachypnea or accessory muscle use. No cough heard during examination. There is no respiratory distress noted. HEART/CARDIOVASCULAR: Regular. There is no tachycardia. There is no murmur. ABDOMEN: Abdomen is soft, nontender. Patient has normal bowel sounds. Obese habitus. SKIN: Skin is warm and dry. NEURO: The patient is awake, alert, and oriented. The patient is cooperative. The patient has no focal neurologic deficits. Normal speech. Cranial nerves II through XII grossly intact. MUSCULOSKELETAL: There is no tenderness or deformity. There is no evidence of acute injury. ED Course - Consultations Consultation #1: 05/30/19 15:09 I spoke with MEAGHAN Montelongo for [facility], on behalf of Dr Wray. They say that if the patient has atrial tachycardia and she needs to be admitted to the hospital. However if the patient has sinus tachycardia with her current heart rate of about 125 bpm then she is safe for discharge home with outpatient follow-up. ED Medical Decision Making - Lab Data Result diagrams: 05/30/19 07:55 05/30/19 07:55 - EKG Data -: EKG Interpreted by Me EKG shows normal: sinus rhythm, axis, intervals, QRS complexes, ST-T waves Rate: normal - EKG Data When compared to previous EKG there are: no significant change Interpretation: unchanged when compared t (04/13/19) 05/30/19 15:15 Repeat EKG at 1503 shows sinus tachycardia at rate of 126. Prolonged QTC - Radiology Data Radiology results: report reviewed, image reviewed interpreted by me: Chest x-ray does not show any acute process. There are no pleural effusions, obvious pneumonia and there is no pneumothorax. VENTILATION PERFUSION PULMONARY SCINTIGRAPHY HISTORY: Shortness of breath, elevated d-dimer COMPARISON: 05/30/2019 chest radiograph. TECHNIQUE: Radiopharmaceutical was inhaled. Tc-99m-MAA was then injected. Ventilation and perfusion images were acquired. RADIOPHARMACEUTICAL: 24.9 mCi of Xe-133 inhaled 4.9 mCi of Tc-99m-MAA injected FINDINGS: VENTILATION: No significant air trapping or defect. PERFUSION: No significant segmental or non-segmental defect. Additional Findings: Prominent cardiac shadow is noted. IMPRESSION: Low probability for pulmonary embolism. Cardiomegaly. - Medical Decision Making This patient presents to the emergency department with some shortness of breath, wheezing, coughing and something she describes as a "hot chest." EKG does not show any signs of ST elevation AZ or dysrhythmia. Patient's labs have been mostly unremarkable except for a slightly elevated an equivocal d-dimer. A chest x-ray was completed first that did not show any signs of pneumonia, pleural effusions, pneumothorax or any focal consolidation. Radiology read it as concern for mild CHF but the patient's BNP was less than 50 and therefore does not appear consistent with acute CHF exacerbation. Due to the slightly elevated d-dimer level, a ventilation/perfusion scan was completed that was low probability for a pulmonary embolism. Patient was given breathing treatments, steroids, antitussive. She was also given multiple doses of labetalol, not for her blood pressure, but for some rate control as the patient developed some mild to moderate tachycardia with heart rate between 125 and 130. The patient's heart rate will go down transiently but then appears to come back up. She has no complaints of any palpitations and upon reevaluation she is feeling greatly improved. She says her breathing is much better and she has no pain. I spoke with the patient's personal security specialist service who says that if the tachycardia is due to atrial tachycardia and she will need to be readmitted, but if it is sinus tachycardia then the patient is safe to go home with this heart rate. A repeat EKG was done that came back showing sinus tachycardia and therefore the patient will be discharged home for outpatient cardiology follow-up regarding the tachycardia. She was also encouraged to follow up with her primary care physician. She was given a refill of her albuterol, a course of steroids, and a cough medication. She was instructed to return to the emergency Department with any worsening of her symptoms or any acute distress. - Differential Diagnosis pneumonia, bronchitis, PE, CHF Critical Care Time: No Critical care attestation.: If time is entered above; I have spent that time in minutes in the direct care of this critically ill patient, excluding procedure time. ED Disposition Clinical Impression: COPD exacerbation, Tachycardia Disposition: DC-01 TO HOME OR SELFCARE Is pt being admited?: No Condition: Stable Instructions: Chronic Obstructive Pulmonary Disease (ED) Additional Instructions: Please follow-up with your primary care physician in the next few days. Please follow-up with your personal security specialist regarding the tachycardia. Return to the emergency Department with any worsening of your symptoms or any acute distress. Prescriptions: predniSONE [Deltasone] 20 mg PO QDAY #5 tab ALBUTEROL Inhaler (OR & NICU) [ProAir HFA Inhaler] 2 puff IH QID PRN #1 pump PRN Reason: Shortness Of Breath ALBUTEROL NEB's [Proventil 0.083% NEBS] 2.5 mg IH TID PRN #90 neb PRN Reason: Wheezing Benzonatate [Tessalon Perles] 100 mg PO Q8HR PRN #20 capsule PRN Reason: Cough Referrals: MAYNOR BARAHONA MD [Primary Care Provider] - 2-3 Days ELYSE WRAY MD [Staff Physician] - 2-3 Days Time of Disposition: 15:15
[2019-05-30 08:42] LABS: BUN/Creatinine Ratio 16; Blood Urea Nitrogen 13 mg/dL (7-17); Calcium 9.2 mg/dL (8.4-10.2); Hemolysis Index 61
--- NOTE | 2019-05-30 08:58 | XRay Report ---
CHEST 1 VIEW INDICATION: sob. COMPARISON: 04/12/2019 FINDINGS: Support devices: None. Heart: Stable cardiomegaly. Pulmonary vasculature: Central vascular congestion. Lungs/Pleura: No acute air space or pleural effusion. Stable opacification of the left costophrenic a ngle which is likely due to the large heart. Additional findings: None. IMPRESSION: 1. Mild CHF Signer Name: Samuel Walton MD Signed: 05/30/2019 8:53 AM Workstation Name: [id number]
[2019-05-30] MEDS ORDERED: MORPHINE 4 MG/1 ML INJ IV ONE (09:02)
[2019-05-30] MEDS ORDERED: BENZONATATE 100 MG CAP PO ONE (09:03)
[2019-05-30 09:40] LABS: Basophils # (Auto) 0.1 K/mm3 (0.0-0.1); Basophils % (Auto) 1.6 % (0.0-1.8); Eosinophils # (Auto) 0.7 K/mm3 (0.0-0.4); Eosinophils % (Auto) 11.5 % (0.0-4.3); Hematocrit 38.7 % (30.3-42.9); Hemoglobin 13.1 gm/dl (10.1-14.3); Lymphocytes # (Auto) 1.8 K/mm3 (1.2-5.4); Lymphocytes % (Auto) 28.3 % (13.4-35.0); Mean Corpuscular HGB Conc 34 % (30-34); Mean Corpuscular Volume 90 fl (79-97); Monocytes # (Auto) 0.5 K/mm3 (0.0-0.8); Monocytes % (Auto) 8.5 % (0.0-7.3); Platelet Count 246 K/mm3 (140-440); Red Blood Count 4.28 M/mm3 (3.65-5.03); Red Cell Distribution Width 14.1 % (13.2-15.2)
--- NOTE | 2019-05-30 13:56 | Nuclear Medicine Report ---
VENTILATION PERFUSION PULMONARY SCINTIGRAPHY HISTORY: Shortness of breath, elevated d-dimer COMPARISON: 05/30/2019 chest radiograph. TECHNIQUE: Radiopharmaceutical was inhaled. Tc-99m-MAA was then injected. Ventilation and perfusion images were acquired. RADIOPHARMACEUTICAL: 24.9 mCi of Xe-133 inhaled 4.9 mCi of Tc-99m-MAA injected FINDINGS: VENTILATION: No significant air trapping or defect. PERFUSION: No significant segmental or non-segmental defect. Additional Findings: Prominent cardiac shadow is noted. IMPRESSION: Low probability for pulmonary embolism. Cardiomegaly. Signer Name: Ramu Whitfield Jr, MD Signed: 05/30/2019 1:52 PM Workstation Name: [id number]
[2019-05-30] MEDS ORDERED: LEVALBUTEROL 0.63 MG/3 ML NEBU IH ONE (14:07)
[2019-05-30 15:57] VITALS: BP 113/64
== END 2019-05-30 15:56 | disposition home or self-care (01) ==
LOC: ED 07:40
DX: J44.1 Chronic obstructive pulmonary disease with (acute) exacerbation (principal); R00.0 Tachycardia, unspecified; I11.0 Hypertensive heart disease with heart failure; I50.9 Heart failure, unspecified; E11.9 Type 2 diabetes mellitus without complications; M19.90 Unspecified osteoarthritis, unspecified site; I25.810 Atherosclerosis of coronary artery bypass graft(s) without angina pectoris
CPT/HCPCS: 36415; 71046; 78582; 80048; 83880; 84484; 85025; 85379; 93005; 93010; 94640; 94760; 96374; 96375; 96376; 99285; A9540; A9558; J2270; J2930; 94644

== ENCOUNTER 2019-07-21 09:07 | Observation (INO) | payer MEDICAID ==
[2019-07-21] MEDS ORDERED: LORazepam 2 MG/ML VIAL IV ONE (09:44)
--- NOTE | 2019-07-21 10:17 | XRay Report ---
CHEST 1 VIEW INDICATION: Dyspnea. COMPARISON: 05/30/2019 FINDINGS: Support devices: None. Heart: Stable borderline heart size. Lungs/Pleura: The left heart border is obscured which is unchanged since the previous exam. This appe ars to represent lingular atelectasis or scarring. The left upper lung and right lung are clear. No p neumothorax. Additional findings: None. IMPRESSION: No significant change since 05/30/2019. Borderline heart size. Lingular opacity as described. Signer Name: Ramu Whitfield Jr, MD Signed: 07/21/2019 10:12 AM Workstation Name: [id number]
--- NOTE | 2019-07-21 10:43 | Emergency Department Report ---
ED General Adult HPI - General Chief complaint: Dyspnea/Respdistress Stated complaint: YOSSI Time Seen by Provider: 07/21/19 09:38 Source: patient Mode of arrival: Stretcher Limitations: No Limitations - History of Present Illness Initial comments: 8-year-old female arrives in the emergency department via EMS after nebs and Solu-Medrol. She is not given magnesium. She has persistent wheezing. Patient states that she is I think on CPAP at night and has a home neb machine. She complains of persistent wheezing. She did not report fever or chest pain. She did not report leg pain swelling or recent travel. She's been having symptoms for the last few days. She doesn't report significant coughing today. She is a poor historian. [facility] records indicate she has a nonischemic cardiomyopathy with an EF of 35. I see that she is previously prescribed Lasix and losartan. I do not think she is compliant. She is a poor historian. She has been admitted here on a number of occasions. A CT angiogram in the past did not feel pulmonary emb olism or any acute or chronic parenchymal disease. Last discharge summary: 58-year-old woman Who presents to the ER with productive cough, wheezing and shortness of breath. She is also complaining of orthopnea as, she sleeps in her CPAP at night Past medical history nonischemic cardiomyopathy, EF 35% NANCY, COPD, PAF CT angiogram chest; no evidence of PE, mild cardiomegaly, lungs are clear COPD exacerbation/acute respiratory failure without hypoxia. Received steroids nebs and supplemental oxygen, pulm consult, It turns out that she has not been on Advair and her controlled medications since last year and has not seen a electro mechanical solar technician since last year. Apparently there was an issue with her Medicaid. She was restarted on controlled medications prior to discharge. And she is advised to follow-up with her electro mechanical solar technician upon discharge. Obstructive sleep apnea Continue CPAP at bedtime Persistent hyperglycemia, Likely due to steroids, SSI Chronic systolic CHF Cardiology consult, appears euvolemic -: Gradual, days(s) Associated Symptoms: denies other symptoms, shortness of breath Treatments Prior to Arrival: other - Related Data Home Medications Medication Instructions Recorded Confirmed Last Taken Biotin [Biotin 10,000 rapdis] 10,000 mcg PO DAILY 04/12/19 04/12/19 Unknown Diclofenac Sodium 75 mg PO DAILY 04/12/19 04/12/19 04/12/19 07:00 Furosemide [Lasix TAB] 40 mg PO QDAY 04/12/19 04/12/19 Unknown Gabapentin [Neurontin] 600 mg PO BID 04/12/19 04/12/19 04/12/19 07:00 600 Losartan Potassium 50 mg PO DAILY 04/12/19 04/12/19 Unknown metFORMIN [Glucophage] 500 mg PO BID 04/12/19 04/12/19 Unknown raNITIdine HCl [Zantac] PRN 04/13/19 Unknown Previous Rx's Medication Instructions Recorded Last Taken Type Budesonide/Formoterol Fumarate 10.2 gm IH BID #1 hfa.aer.ad 04/14/19 Unknown Rx [Symbicort 160-4.5 Mcg Inhaler] Ipratropium/Albuter (Nf) 2 puff IH QID #1 inha 04/14/19 Unknown Rx [Combivent Inhaler] Prednisone [predniSONE 10 mg 10 mg PO .TAPER #1 tab.ds.pk 04/14/19 Unknown Rx (6-Day Pack, 21 Tabs)] Tiotropium [place] [Spiriva 1 puff IH DAILY #1 mist.inhal 04/14/19 Unknown Rx Respimat] carvediloL [Coreg] 3.125 mg PO BID #60 tablet 04/14/19 Unknown Rx ALBUTEROL Inhaler (OR & NICU) 2 puff IH QID PRN #1 pump 05/30/19 Unknown Rx [ProAir HFA Inhaler] ALBUTEROL NEB's [Proventil 0.083% 2.5 mg IH TID PRN #90 neb 05/30/19 Unknown Rx NEBS] Benzonatate [Tessalon Perles] 100 mg PO Q8HR PRN #20 capsule 05/30/19 Unknown Rx predniSONE [Deltasone] 20 mg PO QDAY #5 tab 05/30/19 Unknown Rx Allergies Allergy/AdvReac Type Severity Reaction Status Date / Time sulfamethoxazole Allergy Hives Verified 04/21/16 02:53 [From Bactrim] trimethoprim [From Bactrim] Allergy Hives Verified 04/21/16 02:53 ED Review of Systems ROS: Stated complaint: YOSSI Other details as noted in HPI Constitutional: denies: chills, fever Eyes: denies: eye pain, vision change ENT: denies: ear pain, throat pain Respiratory: shortness of breath, wheezing Cardiovascular: denies: chest pain, palpitations Endocrine: no symptoms reported Gastrointestinal: denies: abdominal pain, nausea, diarrhea Genitourinary: denies: urgency, dysuria, discharge Musculoskeletal: denies: back pain, joint swelling, arthralgia Skin: denies: rash, lesions Neurological: denies: headache, weakness, paresthesias Psychiatric: denies: anxiety, depression Hematological/Lymphatic: denies: easy bleeding, easy bruising ED Past Medical Hx - Past Medical History Hx Hypertension: Yes Hx Heart Attack/AMI: Yes (2004) Hx Congestive Heart Failure: Yes Hx Diabetes: Yes Hx Arthritis: Yes Hx Psychiatric Treatment: Yes (PTSD) Hx Asthma: Yes Hx COPD: Yes Additional medical history: hepatitis C, CAD, Sleep apnea, GERD. Above entered by nursing. Coronary artery disease is apparently a correct. I'm not sure about hepatitis C. The patient has a nonischemic cardiomyopathy with an EF of 35%. - Surgical History Additional Surgical History: open heart surgery, left knee replacement, apoorva in right leg, surgical repair of disc in neck - Social History Smoking Status: Never Smoker Substance Use Type: None - Medications Home Medications: Home Medications Medication Instructions Recorded Confirmed Last Taken Type Biotin [Biotin 10,000 rapdis] 10,000 mcg PO DAILY 04/12/19 04/12/19 Unknown History Diclofenac Sodium 75 mg PO DAILY 04/12/19 04/12/19 04/12/19 07:00 History Furosemide [Lasix TAB] 40 mg PO QDAY 04/12/19 04/12/19 Unknown History Gabapentin [Neurontin] 600 mg PO BID 04/12/19 04/12/19 04/12/19 07:00 History 600 Losartan Potassium 50 mg PO DAILY 04/12/19 04/12/19 Unknown History metFORMIN [Glucophage] 500 mg PO BID 04/12/19 04/12/19 Unknown History raNITIdine HCl [Zantac] PRN 04/13/19 Unknown History Budesonide/Formoterol Fumarate 10.2 gm IH BID #1 hfa.aer.ad 04/14/19 Unknown Rx [Symbicort 160-4.5 Mcg Inhaler] Ipratropium/Albuter (Nf) 2 puff IH QID #1 inha 04/14/19 Unknown Rx [Combivent Inhaler] Prednisone [predniSONE 10 mg 10 mg PO .TAPER #1 tab.ds.pk 04/14/19 Unknown Rx (6-Day Pack, 21 Tabs)] Tiotropium [place] [Spiriva 1 puff IH DAILY #1 mist.inhal 04/14/19 Unknown Rx Respimat] carvediloL [Coreg] 3.125 mg PO BID #60 tablet 04/14/19 Unknown Rx ALBUTEROL Inhaler (OR & NICU) 2 puff IH QID PRN #1 pump 05/30/19 Unknown Rx [ProAir HFA Inhaler] ALBUTEROL NEB's [Proventil 0.083% 2.5 mg IH TID PRN #90 neb 05/30/19 Unknown Rx NEBS] Benzonatate [Tessalon Perles] 100 mg PO Q8HR PRN #20 capsule 05/30/19 Unknown Rx predniSONE [Deltasone] 20 mg PO QDAY #5 tab 05/30/19 Unknown Rx ED Physical Exam - General Limitations: No Limitations General appearance: alert, in no apparent distress, obese - Head Head exam: Present: atraumatic, normocephalic - Eye Eye exam: Present: normal appearance. Absent: scleral icterus - ENT ENT exam: Present: mucous membranes moist - Neck Neck exam: Present: normal inspection. Absent: tenderness, meningismus - Respiratory Respiratory exam: Present: wheezes, other (tachypnea). Absent: respiratory distress - Cardiovascular Cardiovascular Exam: Present: normal rhythm, tachycardia. Absent: systolic m urmur, diastolic murmur, rubs, gallop - GI/Abdominal GI/Abdominal exam: Present: soft, normal bowel sounds. Absent: distended, tenderness, guarding, rebound, rigid - Extremities Exam Extremities exam: Present: normal inspection. Absent: calf tenderness - Back Exam Back exam: Present: normal inspection. Absent: CVA tenderness (R), CVA tenderness (L) - Neurological Exam Neurological exam: Present: alert, oriented X3, CN II-XII intact. Absent: motor sensory deficit - Psychiatric Psychiatric exam: Present: normal affect, normal mood - Skin Skin exam: Present: warm, dry, intact, normal color. Absent: rash ED Course Vital Signs 07/21/19 07/21/19 07/21/19 09:48 10:01 11:00 Temperature 98.1 F Pulse Rate 130 H 130 H 122 H Pulse Rate [ Anterior Bilateral Throughout] Respiratory 22 7 L 22 Rate Respiratory Rate [Anterior Bilateral Throughout] Blood Pressure 128/76 114/79 Blood Pressure 129/82 [Right] O2 Sat by Pulse 97 97 98 Oximetry 07/21/19 07/21/19 12:01 13:40 Temperature Pulse Rate 121 H Pulse Rate [ 123 H Anterior Bilateral Throughout] Respiratory 22 Rate Respiratory 20 Rate [Anterior Bilateral Throughout] Blood Pressure 104/66 Blood Pressure [Right] O2 Sat by Pulse 97 Oximetry - Reevaluation(s) Reevaluation #1: Chest x-ray shows a lingular opacity that patient states has been unchanged. I will have to investigate all what study this was previously seen. I reviewed a past CT which did not mention this. Her d-dimer is slightly elevated. A plain CT without contrast is ordered because patient does not have adequate access. A nuclear medicine studies also ordered. Patient has received multiple nebs and magnesium. She is still wheezing. She still tachycardic. She will be placed on a slow saline drip to see if her tach ycardia starts to resolve while her BNP is pending. Other studies are pending. Thyroid tests were negative. It doesn't appear that the patient has a SIRS syndrome. Dr. Ramey has been notified of the need to admit. These studies are pending. I explained to the patient with her persistent wheezing and tachycardia admission will be warranted. She is indicating that she may not stay. Since admission is warranted and she will have to sign out AMA if she ultimately makes this decision. Nursing has been informed. 07/21/19 14:46 ED Medical Decision Making - Lab Data Result diagrams: 07/21/19 10:22 07/21/19 10:22 Laboratory Results - last 24 hr 07/21/19 07/21/19 07/21/19 10:22 10:22 10:22 WBC 5.2 RBC 4.46 Hgb 13.4 Hct 40.4 MCV 91 MCH 30 MCHC 33 RDW 13.5 Plt Count 260 Lymph % (Auto) 25.7 [place] % (Auto) 5.9 Eos % (Auto) 11.7 H Baso % (Auto) 1.5 Lymph # 1.3 [place] # 0.3 Eos # 0.6 H Baso # 0.1 Seg Neutrophils % 55.2 Seg Neutrophils # 2.9 PT INR APTT D-Dimer Sodium 143 Potassium 3.8 Chloride 106.0 Carbon Dioxide 21 L Anion Gap 20 BUN 13 Creatinine 0.7 Estimated GFR > 60 BUN/Creatinine Ratio 19 Glucose 118 H Lactic Acid 1.00 Calcium 9.2 Magnesium 2.00 Total Bilirubin Direct Bilirubin AST ALT Alkaline Phosphatase Total Creatine Kinase CK-MB (CK-2) CK-MB (CK-2) Rel Index Troponin T Total Protein Albumin Albumin/Globulin Ratio TSH Free T4 07/21/19 07/21/19 07/21/19 10:22 10:22 10:22 WBC RBC Hgb Hct MCV MCH MCHC RDW Plt Count Lymph % (Auto) [place] % (Auto) Eos % (Auto) Baso % (Auto) Lymph # [place] # Eos # Baso # Seg Neutrophils % Seg Neutrophils # PT 14.4 INR 1.11 APTT 26.6 D-Dimer 378.95 H Sodium Potassium Chloride Carbon Dioxide Anion Gap BUN Creatinine Estimated GFR BUN/Creatinine Ratio Glucose Lactic Acid Calcium Magnesium Total Bilirubin 0.50 Direct Bilirubin < 0.2 AST 17 ALT 12 Alkaline Phosphatase 55 Total Creatine Kinase 175 H CK-MB (CK-2) 1.9 CK-MB (CK-2) Rel Index 1.0 Troponin T < 0.010 Total Protein 7.6 Albumin 4.0 Albumin/Globulin Ratio 1.1 TSH Free T4 07/21/19 10:22 WBC RBC Hgb Hct MCV MCH MCHC RDW Plt Count Lymph % (Auto) [place] % (Auto) Eos % (Auto) Baso % (Auto) Lymph # [place] # Eos # Baso # Seg Neutrophils % Seg Neutrophils # PT INR APTT D-Dimer Sodium Potassium Chloride Carbon Dioxide Anion Gap BUN Creatinine Estimated GFR BUN/Creatinine Ratio Glucose Lactic Acid Calcium Magnesium Total Bilirubin Direct Bilirubin AST ALT Alkaline Phosphatase Total Creatine Kinase CK-MB (CK-2) CK-MB (CK-2) Rel Index Troponin T Total Protein Albumin Albumin/Globulin Ratio TSH 0.601 Free T4 1.28 - Radiology Data Radiology results: report reviewed, image reviewed FINDINGS: Support devices: None. Heart: Stable borderline heart size. Lungs/Pleura: The left heart border is obscured which is unchanged since the previous exam. This appears to represent lingular atelectasis or scarring. The left upper lung and right lung are clear. No pneumothorax. Additional findings: None. IMPRESSION: No significant change since 05/30/2019. Borderline heart size. Lingular opacity as described. Critical care attestation.: If time is entered above; I have spent that time in minutes in the direct care of this critically ill patient, excluding procedure time. ED Disposition Clinical Impression: COPD exacerbation, Nonischemic cardiomyopathy, Tachycardia, Pulmonary infiltrate Disposition: OP ADMIT IP TO THIS HOSP Is pt being admited?: Yes Does the pt Need Aspirin: Yes Condition: Stable Instructions: Chronic Obstructive Pulmonary Disease (ED) Referrals: PRIMARY CARE, [Referring] - 3-5 Days Time of Disposition: 14:50
[2019-07-21 10:44] LABS: Basophils # (Auto) 0.1 K/mm3 (0.0-0.1); Basophils % (Auto) 1.5 % (0.0-1.8); Eosinophils # (Auto) 0.6 K/mm3 (0.0-0.4); Eosinophils % (Auto) 11.7 % (0.0-4.3); Hematocrit 40.4 % (30.3-42.9); Hemoglobin 13.4 gm/dl (10.1-14.3); Lymphocytes # (Auto) 1.3 K/mm3 (1.2-5.4); Lymphocytes % (Auto) 25.7 % (13.4-35.0); Mean Corpuscular HGB Conc 33 % (30-34); Mean Corpuscular Volume 91 fl (79-97); Monocytes # (Auto) 0.3 K/mm3 (0.0-0.8); Monocytes % (Auto) 5.9 % (0.0-7.3); Platelet Count 260 K/mm3 (140-440); Red Blood Count 4.46 M/mm3 (3.65-5.03); Red Cell Distribution Width 13.5 % (13.2-15.2)
[2019-07-21 11:04] LABS: BUN/Creatinine Ratio 19; Blood Urea Nitrogen 13 mg/dL (7-17); Calcium 9.2 mg/dL (8.4-10.2); Hemolysis Index 6
[2019-07-21 11:06] LABS: Creatine Kinase MB 1.9 ng/mL (0.0-4.0)
[2019-07-21 11:07] LABS: Alanine Aminotransferase 12 units/L (7-56); Bilirubin,Direct < 0.2 mg/dL (0-0.2)
[2019-07-21 11:08] LABS: INR 1.11 (0.87-1.13)
[2019-07-21 11:09] LABS: Partial Thromboplastin Time 26.6 Sec. (24.2-36.6)
[2019-07-21 11:12] LABS: Free T4 (Free Thyroxine) 1.28 ng/dL (0.76-1.46)
[2019-07-21] MEDS ORDERED: MAGNESIUM SULFATE 2 GM/50 ML BAG IV ONE (12:32)
[2019-07-21] MEDS ORDERED: IPRATROPIUM/ALBUTEROL SULFATE 3 ML AMPUL.NEB IH ONE (12:32)
[2019-07-21 12:51] LABS: Bacteria,Urine 1+ /HPF (Negative); Bilirubin,Urine NEG (Negative); Blood,Urine NEG (Negative); Color,Urine Yellow (Yellow); Mucus,Urine 2+ /HPF; Protein,Urine <15 mg/dL mg/dL (Negative); Urobilinogen,Urine < 2.0 mg/dL (<2.0)
[2019-07-21 12:59] LABS: Amphetamine Screen,Urine PRESUMPTIVE NEGATIVE; Benzodiazepines Screen,Urine PRESUMPTIVE NEGATIVE; Cannabinoid Screen,Urine PRESUMPTIVE NEGATIVE; Cocaine Screen,Urine PRESUMPTIVE NEGATIVE; Methadone Screen,Urine PRESUMPTIVE NEGATIVE; Opiate Screen,Urine PRESUMPTIVE NEGATIVE
[2019-07-21] MEDS ORDERED: SODIUM CHLORIDE 0.9% 1000 ML 1,000 ML IV ONE (14:37)
--- NOTE | 2019-07-21 14:38 | History and Physical Report ---
History of Present Illness Chief complaint: I cannot breathe and I keep coughing History of present illness: 58 YO Female with HTN, [place], Systolic CHF (EF 20%), COPD, Asthma, Depression, GERD, HCV, CAD S/P CABG, NANCY, OA, PTSD presents to ED for evaluation. Pt states that she has experienced shortness of breath over the past 3 days with progressively worsening symptoms over the same timeframe. Patient acknowledges increased productive cough with clear sputum,dyspnea on exertion, dyspnea at rest, and increased use of nebulizer therapy without relief of symptoms. EMS notified and upon arrival the patient was found to be in respiratory distress and subsequently transported to [facility] for further care and evaluation. Patient seen and evaluated in the emergency department. Patient laboratory and imaging studies reviewed. Patient found to be in respiratory distress. Patient is unable to speak in complete sentences. Patient is using accessory muscles to breathe. Patient appears anxious and agitated and is leaning forward while sitting in the bed and appears to be in respiratory distress. Patient placed in observation status and admitted to medical floor. Patient admitted for medical stabilization and supportive care due to likelihood of worsening symptoms. Patient found to have acute on chronic respiratory failure complicated by COPD exacerbation. Pt denies the following symptoms using head nods: Pt denies fever, chills, CP, NVD, Trauma, unilateral leg swelling, calf pain, individual/family history of DVT/PE, hemoptysis, prolonged travel/immobility, or recent ill contacts. Previous admission on 04/02/2019 reviewed. All listed medication at time of admission has been reconciled. Past History Past Medical History: acute WI, COPD, hypertension, other (see HPI) Past Surgical History: CABG, total knee replacement Social history: single. denies: smoking, alcohol abuse, prescription drug abuse Family history: diabetes, hypertension Medications and Allergies Allergies Allergy/AdvReac Type Severity Reaction Status Date / Time sulfamethoxazole Allergy Hives Verified 04/21/16 02:53 [From Bactrim] trimethoprim [From Bactrim] Allergy Hives Verified 04/21/16 02:53 Home Medications Medication Instructions Recorded Confirmed Last Taken Type Biotin [Biotin 10,000 rapdis] 10,000 mcg PO DAILY 04/12/19 04/12/19 Unknown History Diclofenac Sodium 75 mg PO DAILY 04/12/19 04/12/19 04/12/19 07:00 History Furosemide [Lasix TAB] 40 mg PO QDAY 04/12/19 04/12/19 Unknown History Gabapentin [Neurontin] 600 mg PO BID 04/12/19 04/12/19 04/12/19 07:00 History 600 Losartan Potassium 50 mg PO DAILY 04/12/19 04/12/19 Unknown History metFORMIN [Glucophage] 500 mg PO BID 04/12/19 04/12/19 Unknown History raNITIdine HCl [Zantac] PRN 04/13/19 Unknown History Budesonide/Formoterol Fumarate 10.2 gm IH BID #1 hfa.aer.ad 04/14/19 Unknown Rx [Symbicort 160-4.5 Mcg Inhaler] Ipratropium/Albuter (Nf) 2 puff IH QID #1 inha 04/14/19 Unknown Rx [Combivent Inhaler] Prednisone [predniSONE 10 mg 10 mg PO .TAPER #1 tab.ds.pk 04/14/19 Unknown Rx (6-Day Pack, 21 Tabs)] Tiotropium [place] [Spiriva 1 puff IH DAILY #1 mist.inhal 04/14/19 Unknown Rx Respimat] carvediloL [Coreg] 3.125 mg PO BID #60 tablet 04/14/19 Unknown Rx ALBUTEROL Inhaler (OR & NICU) 2 puff IH QID PRN #1 pump 05/30/19 Unknown Rx [ProAir HFA Inhaler] ALBUTEROL NEB's [Proventil 0.083% 2.5 mg IH TID PRN #90 neb 05/30/19 Unknown Rx NEBS] Benzonatate [Tessalon Perles] 100 mg PO Q8HR PRN #20 capsule 05/30/19 Unknown Rx predniSONE [Deltasone] 20 mg PO QDAY #5 tab 05/30/19 Unknown Rx Review of Systems Constitutional: no weight loss, no weight gain, no fever, no chills Ears, nose, mouth and throat: no ear pain, no ear discharge Cardiovascular: no chest pain, no orthopnea, no rapid/irregular heart beat, no lightheadedness Respiratory: cough, cough with sputum, excessive sputum, shortness of breath, dyspnea on exertion, no pain, no pain on inspiration Gastrointestinal: no nausea, no vomiting, no diarrhea, no constipation Genitourinary Female: no pelvic pain, no flank pain, no menorrhagia, no dysuria, no urinary frequency, no urgency Rectal: no pain, no incontinence, no bleeding Musculoskeletal: no neck stiffness, no neck pain, no shooting arm pain, no arm numbness/tingling, no low back pain Integumentary: no rash, no pruritis, no redness, no sores, no wounds Neurological: no head injury, no transient paralysis, no paralysis, no weakness, no numbness Psychiatric: no anxiety, no memory loss, no change in sleep habits, no hypersomnia Endocrine: no cold intolerance, no heat intolerance, no excessive thirst, no polydipsia, no nocturia, no excessive sweating Hematologic/Lymphatic: no easy bruising, no easy bleeding, no lymphadenopathy, no lymphedema Allergic/Immunologic: no urticaria, no wheezing, no persistent infections, no anaphylaxis Exam - Constitutional Vitals: Temp Pulse Resp BP Pulse Ox 98.1 F 123 H 20 104/66 97 07/21/19 09:48 07/21/19 13:40 07/21/19 13:40 07/21/19 12:01 07/21/19 12:01 General appearance: Present: mild distress - EENT Eyes: Present: PERRL ENT: hearing intact, clear oral mucosa - Respiratory Respiratory effort: labored, accessory muscle use, stridor Respiratory: bilateral: diminished, rhonchi - Cardiovascular Rhythm: other (tachycardia) Heart Sounds: Present: S1 & S2. Absent: rub, click - Extremities Extremities: pulses symmetrical, No edema Peripheral Pulses: within normal limits - Abdominal General gastrointestinal: Present: soft, non-tender, non-distended, normal bowel sounds Female genitourinary: Present: normal - Integumentary Integumentary: Present: clear, warm, dry - Musculoskeletal Musculoskeletal: generalized weakness - Psychiatric Psychiatric: agitated - Neurologic Neurologic: CNII-XII intact, moves all extremities Results - Labs CBC & Chem 7: 07/21/19 10:22 07/21/19 10:22 Labs: Abnormal lab results 07/21/19 07/21/19 07/21/19 Range/Units 10:22 10:22 10:22 Eos % (Auto) 11.7 H (0.0-4.3) % Eos # 0.6 H (0.0-0.4) K/mm3 D-Dimer 378.95 H (0-234) ng/mlDDU Carbon Dioxide 21 L (22-30) mmol/L Glucose 118 H (65-100) mg/dL Total Creatine Kinase (30-135) units/L U Epithel Cells (Auto) (0-13.0) /HPF 07/21/19 07/21/19 Range/Units 10:22 12:19 Eos % (Auto) (0.0-4.3) % Eos # (0.0-0.4) K/mm3 D-Dimer (0-234) ng/mlDDU Carbon Dioxide (22-30) mmol/L Glucose (65-100) mg/dL Total Creatine Kinase 175 H (30-135) units/L U Epithel Cells (Auto) 28.0 H (0-13.0) /HPF Assessment and Plan - Patient Problems (1) Acute respiratory failure Current Visit: Yes Status: Acute Qualifiers: Respiratory failure complication: hypoxia Qualified Code(s): J96.01 - Acute respiratory failure with hypoxia Plan to address problem: Supplemental oxygen, arterial blood gas, CBC, BMP, chest x-ray, VQ scan, pulse oximetry, nebulizer therapy, noninvasive positive pressure ventilation as clinically indicated. (2) COPD exacerbation Current Visit: Yes Status: Acute Plan to address problem: Supplemental oxygen, nebulizer therapy, IV steroid therapy, empiric IV antibiotic therapy, pulse oximetry, chest x-ray. (3) CHF (congestive heart failure) Current Visit: No Status: Acute Qualifiers: Heart failure type: systolic Heart failure chronicity: chronic Qualified Code(s): I50.22 - Chronic systolic (congestive) heart failure Plan to address problem: Strict I/O, daily weight, chest x-ray, pulse oximetry, nebulizer therapy, afterload reduction, blood pressure control. (4) NANCY and COPD overlap syndrome Current Visit: Yes Status: Acute Plan to address problem: Supplemental oxygen, nebulizer therapy, pulse oximetry, noninvasive positive pressure ventilation as clinically indicated, outpatient sleep study, outpatient pulmonology follow-up (5) DVT prophylaxis Current Visit: No Status: Acute Plan to address problem: SCD to bilateral lower extremities while in bed, patient is ambulatory
[2019-07-21] MEDS ORDERED: ALBUTEROL 2.5 MG/3 ML NEBU IH PRN (14:39)
[2019-07-21] MEDS ORDERED: ACETAMINOPHEN 325 MG TAB PO PRN (14:39)
[2019-07-21] MEDS ORDERED: ONDANSETRON 4 MG/2 ML INJ IV PRN (14:39)
[2019-07-21] MEDS ORDERED: BENZONATATE 100 MG CAP PO PRN (14:41)
[2019-07-21] MEDS ORDERED: ASPIRIN 325 MG TAB PO ONE (15:00)
--- NOTE | 2019-07-21 16:07 | Nuclear Medicine Report ---
NUCLEAR MEDICINE VENTILATION/PERFUSION LUNG SCAN INDICATION: Shortness of breath TECHNIQUE: 16.7 mCi of Xenon-133 were given by inhalation. 5.4 mCi of Tc 99m MAA were given by IV. Comparison is made to CT scan dated 05/30/2019 FINDINGS: Comparison with chest radiograph from 07/21/2019. No significant perfusion defect is identified. There is some air trapping in the lung bases. VQ scan appears essentially unchanged from the prior exam IMPRESSION: Low probability for pulmonary embolism. Signer Name: Chucky Nelson MD Signed: 07/21/2019 4:03 PM Workstation Name: [id number]
[2019-07-21] MEDS ORDERED: ASPIRIN 325 MG TAB ONE (16:27)
[2019-07-21] MEDS ORDERED: SODIUM CHLORIDE 0.9% 1000 ML 1,000 ML ONE (16:27)
[2019-07-21 16:41] VITALS: BP 122/82
--- NOTE | 2019-07-21 16:52 | Cat Scan Report ---
CT chest wo con INDICATION: Lingual opacity. TECHNIQUE: All CT scans at this location are performed using the following dose modulation technique: Automated exposure control. CONTRAST: None. COMPARISON: Chest x-ray earlier the same day. CTA chest 04/12/2019. FINDINGS: The lungs contain no suspicious mass, infiltrate or pleural fluid. Scarring is noted at the left upper zone. Cardiomegaly results in decreased aeration at the left base similar to the previous exam. No mediastinal mass or adenopathy. Imaging of the upper abdomen is unremarkable. IMPRESSION: Negative for infiltrate. Findings seen by chest x-ray likely represent soft tissue attenu ation. Signer Name: Anthony Carvajal MD Signed: 07/21/2019 4:48 PM Workstation Name: [id number]
[2019-07-21] MEDS ORDERED: GABAPENTIN 300 MG CAP PO SCH (22:00)
[2019-07-21] MEDS ORDERED: NON-FORMULARY EACH (Gabapentin [Neurontin] 600 MG) PO SCH (22:00)
[2019-07-22] MEDS ORDERED: FUROSEMIDE 40 MG TAB PO SCH (06:00)
[2019-07-22] MEDS ORDERED: DICLOFENAC DR 75 MG TAB PO SCH (10:00)
[2019-07-22] MEDS ORDERED: LOSARTAN POTASSIUM 50 MG PO SCH (10:00)
[2019-07-22] MEDS ORDERED: LOSARTAN 50 MG TAB PO SCH (10:00)
[2019-07-22] MEDS ORDERED: TIOTROPIUM 18 MCG CAP INHALATION IH SCH (10:00)
[2019-07-22] MEDS ORDERED: BIOTIN 10000 MCG PO SCH (10:00)
== END 2019-07-21 18:10 | disposition left against medical advice (07) ==
LOC: ED 09:07 → 3A 14:39
PROVIDERS: ADMIT Internal Medicine; ATTEND Internal Medicine
DX: J44.1 Chronic obstructive pulmonary disease with (acute) exacerbation (principal); J96.01 Acute respiratory failure with hypoxia; I42.8 Other cardiomyopathies; E11.9 Type 2 diabetes mellitus without complications; R91.8 Other nonspecific abnormal finding of lung field; R00.0 Tachycardia, unspecified; I11.0 Hypertensive heart disease with heart failure; I50.20 Unspecified systolic (congestive) heart failure; I25.2 Old myocardial infarction; F32.9 Major depressive disorder, single episode, unspecified; K21.9 Gastro-esophageal reflux disease without esophagitis; I25.10 Atherosclerotic heart disease of native coronary artery without angina pectoris; G47.33 Obstructive sleep apnea (adult) (pediatric); M19.90 Unspecified osteoarthritis, unspecified site; F43.10 Post-traumatic stress disorder, unspecified; Z95.1 Presence of aortocoronary bypass graft; Z96.653 Presence of artificial knee joint, bilateral; Z79.84 Long term (current) use of oral hypoglycemic drugs; Z79.899 Other long term (current) drug therapy; Z88.2 Allergy status to sulfonamides; Z88.8 Allergy status to other drugs, medicaments and biological substances
CPT/HCPCS: 36415; 71045; 71250; 78582; 80048; 80076; 80307; 81001; 82140; 82550; 82553; 83735; 83880; 84439; 84443; 84484; 85025; 85379; 85610; 85730; 87040; 93005; 93010; 94644; 96365; 96367; 96375; 99284; A9540; A9558; G0378; J1956; J2060; J3475; J7030

== ENCOUNTER 2019-08-01 03:14 | Emergency (ER) | payer MEDICAID ==
[2019-08-01] MEDS ORDERED: ALBUTEROL 2.5 MG/3 ML NEBU IH ONE (06:33)
[2019-08-01] MEDS ORDERED: IPRATROPIUM 0.02% NEBU 2.5 ML IH ONE (06:33)
[2019-08-01] MEDS ORDERED: BENZONATATE 100 MG CAP PO PRN (06:34)
[2019-08-01] MEDS ORDERED: ALBUTEROL 8.5 GM INHALATION IH PRN (06:34)
[2019-08-01] MEDS ORDERED: FUROSEMIDE 40 MG/4 ML INJ IV ONE (06:36)
[2019-08-01] MEDS ORDERED: ACETAMINOPHEN 325 MG TAB PO ONE (06:37)
--- NOTE | 2019-08-01 06:37 | Emergency Department Report ---
ED General Adult HPI - General Chief complaint: Dyspnea/Respdistress Stated complaint: YOSSI Time Seen by Provider: 08/01/19 06:04 Source: patient, EMS (EMS records not available at time of chart dictation.), RN notes reviewed, old records reviewed Mode of arrival: Ambulatory Limitations: No Limitations - History of Present Illness Initial comments: Primary care Dr.: Dr. Gopal Barahona Pulmonology: Dr Bill Hendrix Cardiology: Dr Lluvia Srinivasan Past medical history: Nonischemic cardiomyopathy, cardiac catheterization in 2018 showed no significant coronary artery disease, COPD, obesity, diabetes, hyperglycemia, sleep apnea, on CPAP This patient is a 58-year-old female. I have evaluated the patient in the past. Patient in the past has been admitted to this hospital for COPD and CHF exacerbations, it appears that previously she was not on Advair, or control her medications secondary to issues with Medicaid. In March of last year, she was restarted on Advair by her filing or registry clerk. She reports that she's not been able to take it recently secondary to financial and insurance issues. She presents to the ER with a few days to a few weeks of chest tightness, cough, intermittent mucus production, coughing and dizziness associated with headache. The headache is global. The headache is not sudden or thunderclap in nature. The headache is not maximal in intensity. There is no headache at the moment. The chest tightness is intermittent and associated with coughing. It does not radiate anywhere. It decreases when the patient is not coughing. The patient denies DVT and pulmonary embolism risk factors. She is currently asking to eat. Last year, the patient had 2 low probability nuclear medicine studies, on 07/21/2019, 05/30/2019. She also had a CT angiogram of the chest 04/12/2019, negative for pulmonary embolism. -: Gradual Location: head, chest Radiation: non-radiation Quality: aching Consistency: intermittent Improves with: other Worsens with: other - Related Data Home Medications Medication Instructions Recorded Confirmed Last Taken Biotin [Biotin 10,000 rapdis] 10,000 mcg PO DAILY 04/12/19 04/12/19 Unknown Diclofenac Sodium 75 mg PO DAILY 04/12/19 04/12/19 04/12/19 07:00 Gabapentin [Neurontin] 600 mg PO BID 04/12/19 04/12/19 04/12/19 07:00 600 Losartan Potassium 50 mg PO DAILY 04/12/19 04/12/19 Unknown metFORMIN [Glucophage] 500 mg PO BID 04/12/19 04/12/19 Unknown raNITIdine HCl [Zantac] PRN 04/13/19 Unknown Previous Rx's Medication Instructions Recorded Last Taken Type Prednisone [predniSONE 10 mg 10 mg PO .TAPER #1 tab.ds.pk 04/14/19 Unknown Rx (6-Day Pack, 21 Tabs)] carvediloL [Coreg] 3.125 mg PO BID #60 tablet 04/14/19 Unknown Rx Benzonatate [Tessalon Perles] 100 mg PO Q8HR PRN #20 capsule 05/30/19 Unknown Rx ALBUTEROL Inhaler (OR & NICU) 2 puff IH QID PRN inha 08/01/19 Unknown Rx [ProAir HFA Inhaler] ALBUTEROL Inhaler (OR & NICU) 2 puff IH QID PRN #1 pump 08/01/19 Unknown Rx [ProAir HFA Inhaler] ALBUTEROL NEB's [Proventil 0.083% 2.5 mg IH TID PRN #90 neb 08/01/19 Unknown Rx NEBS] Benzonatate [Tessalon Perles] 100 mg PO Q8HR PRN capsule 08/01/19 Unknown Rx Budesonide [Pulmicort Respules] 1 mg IH Q12HRT nebu 08/01/19 Unknown Rx Budesonide/Formoterol Fumarate 10.2 gm IH BID #1 hfa.aer.ad 08/01/19 Unknown Rx [Symbicort 160-4.5 Mcg Inhaler] Furosemide [Lasix TAB] 40 mg PO QDAY #30 tab 08/01/19 Unknown Rx Ipratropium/Albuter (Nf) 2 puff IH QID #1 inha 08/01/19 Unknown Rx [Combivent Inhaler] Tiotropium Surprise [Spiriva 1 puff IH DAILY #1 mist.inhal 08/01/19 Unknown Rx Respimat] carvediloL [Coreg] 3.125 mg PO BID tablet 08/01/19 Unknown Rx predniSONE [Deltasone] 40 mg PO QDAY #8 tab 08/01/19 Unknown Rx Allergies Allergy/AdvReac Type Severity Reaction Status Date / Time sulfamethoxazole Allergy Hives Verified 04/21/16 02:53 [From Bactrim] trimethoprim [From Bactrim] Allergy Hives Verified 04/21/16 02:53 ED Review of Systems ROS: Stated complaint: YOSSI Other details as noted in HPI Constitutional: malaise Eyes: denies: eye discharge ENT: congestion Respiratory: cough, shortness of breath, SOB with exertion, wheezing Cardiovascular: chest pain. denies: syncope Gastrointestinal: denies: nausea, vomiting Genitourinary: denies: dysuria Musculoskeletal: denies: back pain Neurological: headache. denies: weakness Hematological/Lymphatic: denies: easy bleeding ED Past Medical Hx - Past Medical History Previous Medical History?: Yes Hx Hypertension: Yes Hx Heart Attack/AMI: Yes (2004) Hx Congestive Heart Failure: Yes Hx Diabetes: Yes Hx Arthritis: Yes Hx Psychiatric Treatment: Yes (PTSD) Hx Asthma: Yes Hx COPD: Yes Additional medical history: hepatitis C, CAD, Sleep apnea, GERD. Above entered by nursing. Coronary artery disease is apparently a correct. I'm not sure about hepatitis C. The patient has a nonischemic cardiomyopathy with an EF of 35%. - Surgical History Past Surgical History?: Yes Additional Surgical History: open heart surgery, left knee replacement, apoorva in right leg, surgical repair of disc in neck - Social History Smoking Status: Former Smoker Substance Use Type: None - Medications Home Medications: Home Medications Medication Instructions Recorded Confirmed Last Taken Type Biotin [Biotin 10,000 rapdis] 10,000 mcg PO DAILY 04/12/19 04/12/19 Unknown History Diclofenac Sodium 75 mg PO DAILY 04/12/19 04/12/19 04/12/19 07:00 History Gabapentin [Neurontin] 600 mg PO BID 04/12/19 04/12/19 04/12/19 07:00 History 600 Losartan Potassium 50 mg PO DAILY 04/12/19 04/12/19 Unknown History metFORMIN [Glucophage] 500 mg PO BID 04/12/19 04/12/19 Unknown History raNITIdine HCl [Zantac] PRN 04/13/19 Unknown History Prednisone [predniSONE 10 mg 10 mg PO .TAPER #1 tab.ds.pk 04/14/19 Unknown Rx (6-Day Pack, 21 Tabs)] carvediloL [Coreg] 3.125 mg PO BID #60 tablet 04/14/19 Unknown Rx Benzonatate [Tessalon Perles] 100 mg PO Q8HR PRN #20 capsule 05/30/19 Unknown Rx ALBUTEROL Inhaler (OR & NICU) 2 puff IH QID PRN inha 08/01/19 Unknown Rx [ProAir HFA Inhaler] ALBUTEROL Inhaler (OR & NICU) 2 puff IH QID PRN #1 pump 08/01/19 Unknown Rx [ProAir HFA Inhaler] ALBUTEROL NEB's [Proventil 0.083% 2.5 mg IH TID PRN #90 neb 08/01/19 Unknown Rx NEBS] Benzonatate [Tessalon Perles] 100 mg PO Q8HR PRN capsule 08/01/19 Unknown Rx Budesonide [Pulmicort Respules] 1 mg IH Q12HRT nebu 08/01/19 Unknown Rx Budesonide/Formoterol Fumarate 10.2 gm IH BID #1 hfa.aer.ad 08/01/19 Unknown Rx [Symbicort 160-4.5 Mcg Inhaler] Furosemide [Lasix TAB] 40 mg PO QDAY #30 tab 08/01/19 Unknown Rx Ipratropium/Albuter (Nf) 2 puff IH QID #1 inha 08/01/19 Unknown Rx [Combivent Inhaler] Tiotropium Surprise [Spiriva 1 puff IH DAILY #1 mist.inhal 08/01/19 Unknown Rx Respimat] carvediloL [Coreg] 3.125 mg PO BID tablet 08/01/19 Unknown Rx predniSONE [Deltasone] 40 mg PO QDAY #8 tab 08/01/19 Unknown Rx ED Physical Exam - General Limitations: No Limitations General appearance: alert, in no apparent distress - Head Head exam: Present: atraumatic, normocephalic - Eye Eye exam: Present: normal appearance, EOMI. Absent: nystagmus - ENT ENT exam: Present: normal exam, normal orophraynx, mucous membranes moist, normal external ear exam - Neck Neck exam: Present: normal inspection, full ROM. Absent: tenderness, meningismus - Respiratory Respiratory exam: Present: respiratory distress, wheezes, rhonchi - Cardiovascular Cardiovascular Exam: Present: regular rate, normal rhythm, normal heart sounds. Absent: bradycardia, tachycardia, irregular rhythm, systolic murmur, diastolic murmur, rubs, gallop - GI/Abdominal GI/Abdominal exam: Present: soft, normal bowel sounds. Absent: distended, tenderness, guarding, rebound, rigid, pulsatile mass - Extremities Exam Extremities exam: Present: normal inspection, full ROM, pedal edema (2+ edema in the lower extremities.), other (2+ pulses noted in the bilateral upper and lower extremities. The pelvis is stable. There is no long bony tenderness. The muscular compartments are soft. There is no redness, pus, streaking or erythema.). Absent: calf tenderness - Back Exam Back exam: Present: normal inspection. Absent: tenderness, CVA tenderness (R), CVA tenderness (L), paraspinal tenderness, vertebral tenderness - Neurological Exam Neurological exam: Present: alert, other (there is no facial droop. The tongue is midline. Extraocular movements are intact bilaterally. Speaking in full sentences. Hearing is grossly intact. 5 out of 5 strength bilateral upper and lower extremities. Sensation is intact to light touch bilateral upper and lower extremities.). Absent: motor sensory deficit - Psychiatric Psychiatric exam: Present: normal affect, normal mood - Skin Skin exam: Present: warm, dry, intact, normal color. Absent: rash ED Course Vital Signs 08/01/19 08/01/19 08/01/19 05:17 06:37 06:45 Temperature 98.4 F Pulse Rate 82 79 Pulse Rate [ Anterior Bilateral Throughout] Respiratory 20 28 H 24 Rate Respiratory Rate [Anterior Bilateral Throughout] Blood Pressure 125/64 O2 Sat by Pulse 95 92 92 Oximetry 08/01/19 08/01/19 08/01/19 06:50 07:01 07:15 Temperature Pulse Rate 76 83 Pulse Rate [ 75 Anterior Bilateral Throughout] Respiratory 22 19 Rate Respiratory 16 Rate [Anterior Bilateral Throughout] Blood Pressure 100/61 O2 Sat by Pulse 94 95 Oximetry 08/01/19 08/01/19 07:29 08:52 Temperature Pulse Rate Pulse Rate [ 79 Anterior Bilateral Throughout] Respiratory 20 Rate Respiratory 18 Rate [Anterior Bilateral Throughout] Blood Pressure O2 Sat by Pulse 95 Oximetry - Reevaluation(s) Reevaluation #1: 08/01/19 06:50 Differential diagnosis, including but not limited to: COPD, CHF, pneumonia, bronchitis, costochondritis, GERD, gastritis, headache secondary to coughing, chest wall pain secondary to coughing Assessment and plan: 58-year-old female with recurrent complaint of chest tightness, cough, wheezing and shortness of breath. Given albuterol, Atrovent, steroids and magnesium by EMS prior to my evaluation. During her history and p hysical, I am warp coiler and escorted by nurse Jina Cabello The patient is currently afebrile with reassuring vital signs, saturating at 97% on room air, and appears quite comfortable. I suspect that she is experiencing exacerbation of her underlying chronic medical issues, likely secondary to lack of access outpatient maintenance medications. We'll treat her symptoms, obtain screening laboratory studies, an x-ray of the chest. Very unlikely to be acute coronary syndrome, her cardiac catheterization from 2018 is reviewed and appreciated. Chest wall pain has been present for days and weeks, as per the [employer] clinical policy, acute coronary syndrome may be excluded with 1 set of cardiac enzymes as symptoms present for greater than 8 hours. Unlikely to be a pulmonary embolism, I find to be low risk by well's criteria, she does not endorse any DVT or pulmonary embolus risk factors, and she's had multiple workups and evaluations for possible PE within the past few months. Reevaluation #2: 08/01/19 09:13 The patient is reassessed multiple times. She feels improved. No active vomiting. Resting comfortably in no acute distress. Wheezing is improved. Laboratory studies, x-ray are reviewed and appreciated. Essentially no change from baseline. Patient given a good Rx affordable prescription card. Her prescriptions will be refilled. I know both her private filing or registry clerk and her private social work coordinator on a personal and professional level, both of them are typically able to accommodate their private patients with close outpatient appointments. The patient is counseled to closely follow up with her outpatient filing or registry clerk. ED Medical Decision Making - Lab Data Result diagrams: 08/01/19 06:41 08/01/19 06:41 Vital Signs 08/01/19 08/01/19 05:17 06:50 Temperature 98.4 F Pulse Rate 82 Pulse Rate [ 75 Anterior Bilateral Throughout] Respiratory 20 Rate Respiratory 16 Rate [Anterior Bilateral Throughout] Blood Pressure 125/64 O2 Sat by Pulse 95 Oximetry Vital Signs 08/01/19 08/01/19 08/01/19 05:17 06:37 06:45 Temperature 98.4 F Pulse Rate 82 79 Pulse Rate [ Anterior Bilateral Throughout] Respiratory 20 28 H 24 Rate Respiratory Rate [Anterior Bilateral Throughout] Blood Pressure 125/64 O2 Sat by Pulse 95 92 92 Oximetry 08/01/19 08/01/19 08/01/19 06:50 07:01 07:15 Temperature Pulse Rate 76 83 Pulse Rate [ 75 Anterior Bilateral Throughout] Respiratory 22 19 Rate Respiratory 16 Rate [Anterior Bilateral Throughout] Blood Pressure 100/61 O2 Sat by Pulse 94 95 Oximetry 08/01/19 08/01/19 07:29 08:52 Temperature Pulse Rate Pulse Rate [ 79 Anterior Bilateral Throughout] Respiratory 20 Rate Respiratory 18 Rate [Anterior Bilateral Throughout] Blood Pressure O2 Sat by Pulse 95 Oximetry Lab Results 08/01/19 08/01/19 08/01/19 Range/Units 06:41 06:41 06:41 WBC 5.7 (4.5-11.0) K/mm3 RBC 4.26 (3.65-5.03) M/mm3 Hgb 13.0 (10.1-14.3) gm/dl Hct 38.2 (30.3-42.9) % MCV 90 (79-97) fl MCH 31 (28-32) pg MCHC 34 (30-34) % RDW 13.6 (13.2-15.2) % Plt Count 283 (140-440) K/mm3 PT 13.6 (12.2-14.9) Sec. INR 1.03 (0.87-1.13) APTT 25.9 (24.2-36.6) Sec. Sodium 141 (137-145) mmol/L Potassium 4.0 (3.6-5.0) mmol/L Chloride 104.5 (98-107) mmol/L Carbon Dioxide 21 L (22-30) mmol/L Anion Gap 20 mmol/L BUN 16 (7-17) mg/dL Creatinine 0.9 (0.7-1.2) mg/dL Estimated GFR > 60 ml/min BUN/Creatinine Ratio 18 % Glucose 175 H (65-100) mg/dL Calcium 9.3 (8.4-10.2) mg/dL Magnesium 2.70 H (1.7-2.3) mg/dL Total Bilirubin 0.30 (0.1-1.2) mg/dL AST 19 (5-40) units/L ALT 15 (7-56) units/L Alkaline Phosphatase 57 (35-129) units/L Total Creatine Kinase (30-135) units/L Troponin T (0.00-0.029) ng/mL Total Protein 7.5 (6.3-8.2) g/dL Albumin 3.9 (3.9-5) g/dL Albumin/Globulin Ratio 1.1 % 08/01/19 Range/Units 06:41 WBC (4.5-11.0) K/mm3 RBC (3.65-5.03) M/mm3 Hgb (10.1-14.3) gm/dl Hct (30.3-42.9) % MCV (79-97) fl MCH (28-32) pg MCHC (30-34) % RDW (13.2-15.2) % Plt Count (140-440) K/mm3 PT (12.2-14.9) Sec. INR (0.87-1.13) APTT (24.2-36.6) Sec. Sodium (137-145) mmol/L Potassium (3.6-5.0) mmol/L Chloride (98-107) mmol/L Carbon Dioxide (22-30) mmol/L Anion Gap mmol/L BUN (7-17) mg/dL Creatinine (0.7-1.2) mg/dL Estimated GFR ml/min BUN/Creatinine Ratio % Glucose (65-100) mg/dL Calcium (8.4-10.2) mg/dL Magnesium (1.7-2.3) mg/dL Total Bilirubin (0.1-1.2) mg/dL AST (5-40) units/L ALT (7-56) units/L Alkaline Phosphatase (35-129) units/L Total Creatine Kinase 144 H (30-135) units/L Troponin T < 0.010 (0.00-0.029) ng/mL Total Protein (6.3-8.2) g/dL Albumin (3.9-5) g/dL Albumin/Globulin Ratio % - EKG Data -: EKG Interpreted by Id EKG shows normal: sinus rhythm Rate: normal - EKG Data 08/01/19 06:52 Her EKG today shows a sinus rhythm, rate 75 bpm, normal axis, QTC is 516 ms, there is low voltage, the EKG is abnormal, however, it appears to be unchanged from prior EKG from 07/21/2019, with the exception of a prolonged QTC. Not a STEMI - Radiology Data Radiology results: pending, report reviewed, image reviewed Critical care attestation.: If time is entered above; I have spent that time in minutes in the direct care of this critically ill patient, excluding procedure time. ED Disposition Clinical Impression: COPD exacerbation Disposition: DC-01 TO HOME OR SELFCARE Is pt being admited?: No Does the pt Need Aspirin: No Condition: Stable Instructions: Chronic Obstructive Pulmonary Disease (ED) Additional Instructions: Continue outpatient medications. Avoid consumption of excessive salt, and excessive water. Follow up with your primary care doctor, social work coordinator or filing or registry clerk within the next 5 days. Use the good rx prescription card to as sist in purchasing/acquisition of outpatient prescriptions. Please return to emergency room right away with projectile vomiting, change in mental status, confusion, inability to tolerate liquid feeds, new, worsened or different symptoms not present on the initial emergency room evaluation. Referrals: EVERETT MAHAN MD [Staff Physician] - 3-5 Days VAISHNAVI SRINIVASAN MD [Staff Physician] - 3-5 Days
--- NOTE | 2019-08-01 07:11 | XRay Report ---
CHEST 1 VIEW, 08/01/2019 6:35 AM CLINICAL INFORMATION/INDICATION: Shortness of breath COMPARISON: Chest radiograph, 07/21/2019 FINDINGS: SUPPORT DEVICES: None. HEART: Cardiac silhouette is within normal limits in size. LUNGS/PLEURA: Opacity within the left midlung is unchanged and has been previously demonstrated to re present scar on recent CTA of the chest. The right lung remains clear. ADDITIONAL FINDINGS: No additional acute findings. IMPRESSION: 1. No evidence of acute cardiopulmonary process. Signer Name: Carmita Felix MD Signed: 08/01/2019 7:06 AM Workstation Name: [id number]
[2019-08-01 07:16] LABS: Hematocrit 38.2 % (30.3-42.9); Mean Corpuscular HGB Conc 34 % (30-34); Mean Corpuscular Volume 90 fl (79-97); Platelet Count 283 K/mm3 (140-440); Red Blood Count 4.26 M/mm3 (3.65-5.03); Red Cell Distribution Width 13.6 % (13.2-15.2)
[2019-08-01 07:24] LABS: INR 1.03 (0.87-1.13)
[2019-08-01 07:25] LABS: Partial Thromboplastin Time 25.9 Sec. (24.2-36.6)
[2019-08-01 07:36] LABS: Alanine Aminotransferase 15 units/L (7-56); Albumin 3.9 g/dL (3.9-5); BUN/Creatinine Ratio 18; Blood Urea Nitrogen 16 mg/dL (7-17); Calcium 9.3 mg/dL (8.4-10.2); Hemolysis Index 7
[2019-08-01] MEDS ORDERED: ARFORMOTEROL 15 MCG/2 ML NEBU IH SCH (08:00)
[2019-08-01] MEDS ORDERED: IPRATROPIUM 0.02% NEBU 2.5 ML IH SCH (08:00)
[2019-08-01] MEDS ORDERED: BUDESONIDE 0.5 MG/2 ML NEBU IH SCH (08:00)
[2019-08-01] MEDS ORDERED: TIOTROPIUM BROMIDE IH SCH (10:00)
[2019-08-01] MEDS ORDERED: carvediloL 3.125 MG TAB PO SCH (10:00)
[2019-08-01] MEDS ORDERED: NON-FORMULARY EACH (Budesonide/Formoterol Fumarate [Symbicort 160-4.5 Mcg Inhaler] 10.2 GM IH SCH (10:00)
[2019-08-01 10:21] VITALS: BP 111/55
== END 2019-08-01 10:51 | disposition home or self-care (01) ==
LOC: ED 03:14
DX: J44.1 Chronic obstructive pulmonary disease with (acute) exacerbation (principal); I11.0 Hypertensive heart disease with heart failure; I50.9 Heart failure, unspecified; E11.9 Type 2 diabetes mellitus without complications; M19.90 Unspecified osteoarthritis, unspecified site; F43.10 Post-traumatic stress disorder, unspecified; Z87.891 Personal history of nicotine dependence
CPT/HCPCS: 36415; 71045; 80053; 82550; 83735; 84484; 85027; 85610; 85730; 93005; 93010; 94640; 94644; 96374; 99285; J1940

== ENCOUNTER 2019-08-23 14:21 | Inpatient (IN) | payer MEDICAID ==
[2019-08-23] MEDS ORDERED: MORPHINE 4 MG/1 ML INJ IV ONE (15:27)
[2019-08-23] MEDS ORDERED: CYCLOBENZAPRINE 10 MG TAB PO ONE (15:27)
[2019-08-23] MEDS ORDERED: KETOROLAC 30 MG/1 ML INJ IV ONE (15:27)
--- NOTE | 2019-08-23 15:35 | Emergency Department Report ---
HPI - General Chief Complaint: Back Pain/Injury Time Seen by Provider: 08/23/19 15:11 - HPI HPI: 59-year-old -[place] female presents to the emergency department via EMS from home with complaint of acute on chronic mid to low back pain that radiates down her left buttock and leg. Overall she says that this has been going on since last March but she has had an exacerbation over the past few days. She says that she has been diagnosed with sciatica in the past and previously was placed on gabapentin and baclofen, which has not been helping her symptoms. The patient has a history of COPD, obstructive sleep apnea, CHF, GERD, coronary artery disease, nonischemic cardiomyopathy. She denies any problems with bowel or bladder, numbness or paresthesias or any neurological deficits. The patient previously was seeing Dr. Obrien, neurology, regarding her sciatica as well as some other symptoms. She says that she is due to have an MRI of the brain and shoulder done in a few days. She has a new primary care physician. ED Past Medical Hx - Past Medical History Hx Hypertension: Yes Hx Heart Attack/AMI: Yes (2004) Hx Congestive Heart Failure: Yes Hx Diabetes: Yes Hx Arthritis: Yes Hx Psychiatric Treatment: Yes (PTSD) Hx Asthma: Yes Hx COPD: Yes Additional medical history: hepatitis C, CAD, Sleep apnea, GERD. Above entered by nursing. Coronary artery disease is apparently a correct. I'm not sure about hepatitis C. The patient has a nonischemic cardiomyopathy with an EF of 35%. - Surgical History Additional Surgical History: open heart surgery, left knee replacement, apoorva in right leg, surgical repair of disc in neck - Social History Smoking Status: Former Smoker - Medications Home Medications: Home Medications Medication Instructions Recorded Confirmed Last Taken Type Biotin [Biotin 10,000 rapdis] 10,000 mcg PO DAILY 04/12/19 08/23/19 Unknown History Diclofenac Sodium 75 mg PO DAILY 04/12/19 08/23/19 04/12/19 07:00 History Gabapentin [Neurontin] 600 mg PO BID 04/12/19 08/23/19 04/12/19 07:00 History 600 Losartan Potassium 50 mg PO DAILY 04/12/19 08/23/19 Unknown History metFORMIN [Glucophage] 500 mg PO BID 04/12/19 08/23/19 Unknown History Prednisone [predniSONE 10 mg 10 mg PO .TAPER #1 tab.ds.pk 04/14/19 08/23/19 Unknown Rx (6-Day Pack, 21 Tabs)] carvediloL [Coreg] 3.125 mg PO BID #60 tablet 04/14/19 08/23/19 Unknown Rx Benzonatate [Tessalon Perles] 100 mg PO Q8HR PRN #20 capsule 05/30/19 08/23/19 Unknown Rx ALBUTEROL NEB's [Proventil 0.083% 2.5 mg IH TID PRN #90 neb 08/01/19 08/23/19 Unknown Rx NEBS] Albuterol INH(or & Nicu Only) 2 puff IH QID PRN inha 08/01/19 08/23/19 Unknown Rx [ProAir HFA Inhaler] Albuterol INH(or & Nicu Only) 2 puff IH QID PRN #1 pump 08/01/19 08/23/19 Unknown Rx [ProAir HFA Inhaler] Benzonatate [Tessalon Perles] 100 mg PO Q8HR PRN capsule 08/01/19 08/23/19 Unknown Rx Budesonide [Pulmicort Respules] 1 mg IH Q12HRT nebu 08/01/19 08/23/19 Unknown Rx Budesonide/Formoterol Fumarate 10.2 gm IH BID #1 hfa.aer.ad 08/01/19 08/23/19 Unknown Rx [Symbicort 160-4.5 Mcg Inhaler] Furosemide [Lasix TAB] 40 mg PO QDAY #30 tab 08/01/19 08/23/19 Unknown Rx Ipratropium/Albuter (Nf) 2 puff IH QID #1 inha 08/01/19 08/23/19 Unknown Rx [Combivent Inhaler] Tiotropium Shock [Spiriva 1 puff IH DAILY #1 mist.inhal 08/01/19 08/23/19 Unknown Rx Respimat] carvediloL [Coreg] 3.125 mg PO BID tablet 08/01/19 08/23/19 Unknown Rx predniSONE [Deltasone] 40 mg PO QDAY #8 tab 08/01/19 08/23/19 Unknown Rx ED Review of Systems ROS: Stated complaint: BACK PAIN Other details as noted in HPI Comment: All other systems reviewed and negative Constitutional: denies: chills, fever Eyes: denies: eye pain ENT: denies: ear pain, throat pain Respiratory: denies: cough, shortness of breath Cardiovascular: denies: chest pain, palpitations Gastrointestinal: denies: abdominal pain, vomiting Genitourinary: denies: dysuria, discharge Musculoskeletal: back pain, myalgia Skin: denies: rash, lesions Neurological: denies: weakness, numbness, paresthesias Physical Exam - Physical Exam Vital Signs: Vital Signs 08/23/19 15:06 Temperature 98.8 F Pulse Rate 54 L Respiratory 15 Rate Blood Pressure 136/77 [Left] O2 Sat by Pulse 99 Oximetry Physical Exam: GENERAL: The patient is well-developed well-nourished. HEENT: Normocephalic. Atraumatic. Patient has moist mucous membranes. EYES: Extraocular motions are intact. NECK: Supple. Trachea is midline. CHEST/LUNGS: Clear to auscultation. There is no respiratory distress noted. HEART/CARDIOVASCULAR: Regular. There is no tachycardia. There is no murmur. ABDOMEN: Abdomen is soft, nontender. Patient has normal bowel sounds. SKIN:Skin is warm and dry. . NEURO: The patient is awake, alert, and oriented. The patient is cooperative. The patient has no focal neurologic deficits. Normal speech. DTR patellar +2 over 4 bilaterally. MUSCULOSKELETAL: Negative left straight leg raise test with passive movement but pain does increase with active movement. There is some tenderness to palpation along the left thigh but no obvious deformity. There is no limitation range of motion. There is no evidence of acute injury. 5 out of 5 dorsi/plantar flexion of the bilateral feet. BACK: There is some midline and left paraspinal tenderness to palpation but no step-off or deformity. ED Course Vital Signs 08/23/19 15:06 Temperature 98.8 F Pulse Rate 54 L Respiratory 15 Rate Blood Pressure 136/77 [Left] O2 Sat by Pulse 99 Oximetry ED Medical Decision Making - Lab Data Result diagrams: 08/23/19 15:57 08/23/19 17:21 - Radiology Data Radiology results: report reviewed LUMBAR SPINE INDICATION / CLINICAL INFORMATION: back pain COMPARISON: 11/25/2018. FINDINGS: Frontal and lateral views of lumbar spine were obtained with coned down lateral view of the lumbosacral region. There are 5 nonrib-bearing lumbar vertebral bodies. No evidence of vertebral body fracture or subluxation. There is straightening of the lumbar spine which may be related to patient's position or muscle spasm. Moderate to severe degenerative change with in the mid and lower lumbar spine spans L3-S1 with stable intervertebral disc space narrowing and os teophytosis most pronounced at L3/L4 and L4/L5. Lower lumbar facet arthropathy is also noted. IMPRESSION: Lumbar spine without evidence of acute osseous injury. Multilevel moderate to severe degenerative change spanning L3/L4 and L4/L5 with intervertebral disc space narrowing and endplate osteoporosis. When accounting for differences in technique, this appears not significantly changed from 11/25/2018 CT. If back pain persists, an MRI may be beneficial for further evaluation. Loss of lumbar lordosis with straightening of the lumbar spine. This may be related to patient positioning or muscle spasm. Signer Name: Emeterio Bui MD CT lumbar spine wo con INDICATION / CLINICAL INFORMATION: 59 years Female; low back pain. TECHNIQUE: Axial CT images of the lumbar spine were obtained. Sagittal and coronal reformatted images were produced. All CT scans at this location are performed using CT dose reduction for ALARA by means of automated exposure control. COMPARISON: None available. FINDINGS: POST-SURGICAL CHANGES: None. ALIGNMENT: There is slight retrolisthesis of L3 with respect to L2 and L4, which appears to be on degenerative basis. Similar findings seen on prior. Straightening of the lumbar spine noted-also seen on prior. VERTEBRAE: No signs of fracture. Vertebral bodies are grossly normal in height throughout. [id number] ANALYSIS: L1-2: Mild disc bulge and moderate facet hypertrophy. Mild canal and foraminal narrowing. No significant change from prior. L2-3: Moderate disc bulge and facet hypertrophy. Moderate to high-grade canal narrowing along with lateral recess narrowing. Findings could affect the L3 nerves. Mild foraminal narrowing bilaterally without significant sequela. Similar findings seen on prior. L3-4: Moderate disc bulge. Kcqy-vq-frnsudow facet hypertrophy on the left and mild on the right. Moderate to high-grade canal narrowing noted. There is also moderate foraminal narrowing bilaterally. Findings could affect the exiting L3 and descending L4 nerves. Similar findings seen on prior. L4-5: Moderate disc bulge and mild facet hypertrophy. Mild to moderate canal narrowing. There is also a broad-based left lateral recess/foraminal/extra foraminal disc protrusion seen with spondylosis. There is encroachment upon and mild flattening of the left L4 nerve. [id number] foraminal narrowing on the right without impingement. Left lateral recess may be more greatly narrowed than the right. Overall, similar type findings are seen on prior. L5-S1: Mild disc bulge and mild facet hypertrophy. Left lateral recess/foraminal disc protrusion is seen, with associated spondylosis. There is encroachment upon and flattening of the left L5 nerve. Similar findings to a lesser degree noted on the right. Overall, findings are similar to that seen on prior exam. PARASPINAL SOFT TISSUES: No significant abnormality. ADDITIONAL FINDINGS: None. IMPRESSION: 1. No evidence of epidural fluid collection or discitis. 2. Degenerative changes as described above. Signer Name: Raymundo Levy MD, III - Medical Decision Making Patient presents to the emergency department with a few days of low back pain, mostly on the left side, with some radiation down the buttock and leg. Patient has a history of chronic back pain and apparently a previous history of sciatica. This does appear consistent with sciatica. An x-ray was done of the lumbar spine that shows some degenerative changes but otherwise no fracture, subluxation or any other acute process. CT scan of the lumbar spine without contrast does not show any evidence for epidural fluid or discitis and just shows degenerative changes as well. Labs are unremarkable including CBC, metabolic panel and urinalysis. The patient is already on baclofen and gabapen tin. She was given Toradol, morphine, Flexeril, and then later was given Dilaudid. Despite all of these medications/treatments, the patient is still unable to get up out of bed and ambulate appropriately to fulfill her ADLs. She denies any problems with bowel or bladder, numbness or paresthesias and does not appear to have any neurological deficits. She will be admitted to the hospital for further evaluation and treatment was accepted for admission by the hospitalist, Dr. Burgos. - Differential Diagnosis sciatica, muscle spasm, herniated disc, degenerative disc disease Critical Care Time: No Critical care attestation.: If time is entered above; I have spent that time in minutes in the direct care of this critically ill patient, excluding procedure time. ED Disposition Clinical Impression: Hyperglycemia, Unable to walk Low back pain Qualifiers: Chronicity: unspecified Back pain laterality: left Sciatica presence: with sciatica Sciatica laterality: sciatica of left side Qualified Code(s): M54.42 - Lumbago with sciatica, left side Sciatica Qualifiers: Laterality: left Qualified Code(s): M54.32 - Sciatica, left side Disposition: OP ADMIT IP TO THIS HOSP Is pt being admited?: Yes Condition: Stable Time of Disposition: 19:56
[2019-08-23 16:13] LABS: Basophils # (Auto) 0.1 K/mm3 (0.0-0.1); Eosinophils # (Auto) 0.3 K/mm3 (0.0-0.4); Eosinophils % (Auto) 3.2 % (0.0-4.3); Hematocrit 41.8 % (30.3-42.9); Hemoglobin 13.6 gm/dl (10.1-14.3); Lymphocytes # (Auto) 1.7 K/mm3 (1.2-5.4); Lymphocytes % (Auto) 20.4 % (13.4-35.0); Mean Corpuscular HGB Conc 33 % (30-34); Mean Corpuscular Volume 91 fl (79-97); Monocytes # (Auto) 0.6 K/mm3 (0.0-0.8); Monocytes % (Auto) 7.8 % (0.0-7.3); Platelet Count 278 K/mm3 (140-440); Red Cell Distribution Width 13.6 % (13.2-15.2)
--- NOTE | 2019-08-23 16:27 | XRay Report ---
LUMBAR SPINE INDICATION / CLINICAL INFORMATION: back pain COMPARISON: 11/25/2018. FINDINGS: Frontal and lateral views of lumbar spine were obtained with coned down lateral view of the lumbosacr al region. There are 5 nonrib-bearing lumbar vertebral bodies. No evidence of vertebral body fracture or subluxation. There is straightening of the lumbar spine which may be related to patient's positio n or muscle spasm. Moderate to severe degenerative change within the mid and lower lumbar spine spans L3-S1 with stable intervertebral disc space narrowing and osteophytosis most pronounced at L3/L4 and L4/L5. Lower lumbar facet arthropathy is also noted. IMPRESSION: Lumbar spine without evidence of acute osseous injury. Multilevel moderate to severe degenerative change spanning L3/L4 and L4/L5 with intervertebral disc s pace narrowing and endplate osteoporosis. When accounting for differences in technique, this appears not significantly changed from 11/25/2018 CT. If back pain persists, an MRI may be beneficial for furth er evaluation. Loss of lumbar lordosis with straightening of the lumbar spine. This may be related to patient positi oning or muscle spasm. Signer Name: Emeterio Bui MD Signed: 08/23/2019 4:22 PM Workstation Name: [id number]
[2019-08-23 16:44] LABS: Alanine Aminotransferase TNR units/L (7-56); Albumin TNR g/dL (3.9-5); BUN/Creatinine Ratio TNR; Blood Urea Nitrogen TNR mg/dL (7-17); Calcium TNR mg/dL (8.4-10.2); Hemolysis Index TNR
[2019-08-23] MEDS ORDERED: HYDROmorphone 1 MG/1 ML INJ IV ONE (17:17)
[2019-08-23 18:04] LABS: Alanine Aminotransferase 14 units/L (7-56); Albumin 3.5 g/dL (3.9-5); BUN/Creatinine Ratio 28; Blood Urea Nitrogen 22 mg/dL (7-17); Hemolysis Index 9
--- NOTE | 2019-08-23 18:58 | Cat Scan Report ---
CT lumbar spine wo con INDICATION / CLINICAL INFORMATION: 59 years Female; low back pain. TECHNIQUE: Axial CT images of the lumbar spine were obtained. Sagittal and coronal reformatted images were prod uced. All CT scans at this location are performed using CT dose reduction for ALARA by means of autom ated exposure control. COMPARISON: None available. FINDINGS: POST-SURGICAL CHANGES: None. ALIGNMENT: There is slight retrolisthesis of L3 with respect to L2 and L4, which appears to be on deg enerative basis. Similar findings seen on prior. Straightening of the lumbar spine noted-also seen on prior. VERTEBRAE: No signs of fracture. Vertebral bodies are grossly normal in height throughout. [id number] ANALYSIS: L1-2: Mild disc bulge and moderate facet hypertrophy. Mild canal and foraminal narrowing. No signifi cant change from prior. L2-3: Moderate disc bulge and facet hypertrophy. Moderate to high-grade canal narrowing along with l ateral recess narrowing. Findings could affect the L3 nerves. Mild foraminal narrowing bilaterally wi thout significant sequela. Similar findings seen on prior. L3-4: Moderate disc bulge. Igpe-uh-sqhuziiy facet hypertrophy on the left and mild on the right. Mod erate to high-grade canal narrowing noted. There is also moderate foraminal narrowing bilaterally. Fi ndings could affect the exiting L3 and descending L4 nerves. Similar findings seen on prior. L4-5: Moderate disc bulge and mild facet hypertrophy. Mild to moderate canal narrowing. There is als o a broad-based left lateral recess/foraminal/extra foraminal disc protrusion seen with spondylosis. There is encroachment upon and mild flattening of the left L4 nerve. [id number]-wx-qbiiizcy foraminal narro wing on the right without impingement. Left lateral recess may be more greatly narrowed than the righ t. Overall, similar type findings are seen on prior. L5-S1: Mild disc bulge and mild facet hypertrophy. Left lateral recess/foraminal disc protrusion is seen, with associated spondylosis. There is encroachment upon and flattening of the left L5 nerve. Si milar findings to a lesser degree noted on the right. Overall, findings are similar to that seen on p rior exam. PARASPINAL SOFT TISSUES: No significant abnormality. ADDITIONAL FINDINGS: None. IMPRESSION: 1. No evidence of epidural fluid collection or discitis. 2. Degenerative changes as described above. Signer Name: Raymundo Levy MD, III Signed: 08/23/2019 6:54 PM Workstation Name: [id number]
[2019-08-23 20:00] LABS: Bilirubin,Urine NEG (Negative); Blood,Urine NEG (Negative); Color,Urine Yellow (Yellow); Protein,Urine <15 mg/dL mg/dL (Negative); WBC,Urine < 1.0 /HPF (0.0-6.0)
[2019-08-23] MEDS ORDERED: oxyCODONE /ACETAMINOPHEN 5-325MG TAB PO PRN (20:28)
[2019-08-23] MEDS ORDERED: DEXTROSE 50% IN WATER (25GM) 50 ML SYRINGE IV PRN (21:21)
[2019-08-23] MEDS ORDERED: ALBUTEROL 2.5 MG/3 ML NEBU IH PRN (21:24)
[2019-08-23] MEDS: BUDESONIDE 0.5 MG/2 ML NEBU IH SCH (22:21)
[2019-08-23] MEDS: GABAPENTIN 300 MG CAP PO SCH (23:14)
[2019-08-23] MEDS: INSULIN LISPRO 100 UNIT/ML SUB-Q SCH (23:15)
[2019-08-23] MEDS: MORPHINE 2 MG/1 ML INJ IV PRN (23:15)
[2019-08-23] MEDS: LOSARTAN 50 MG TAB PO SCH (23:17)
--- NOTE | 2019-08-23 23:41 | History and Physical Report ---
History of Present Illness Date of examination: 08/23/19 Date of admission: 08/23/19 19:57 Chief complaint: Severe pain Lower back and LLE 1 week History of present illness: 59-year-old -[place] female with history of COPD, obstructive sleep apnea, CHF, GERD, coronary artery disease, nonischemic cardiomyopathy presents to the emergency department via EMS from home with severe low back pain that radiates down her left buttock and leg.Pain is 10/10.Sharp -radiating down the Left leg. This has been going on since last March but she has had an exacerbation over the past few days. She says that she has been diagnosed with sciatica in the past and previously was placed on gabapentin and baclofen, which has not been helping her symptoms. . She denies any problems with bowel or bladder, numbness or paresthesias or any neurological deficits. The patient previously was seeing Dr. Obrien, neurology, regarding her sciatica as well as some other symptoms. She says that she is due to have an MRI .Unable to walk and get out of bed.No bowel or urinary incontinence/Retention. Past Medical History Hypertension: Yes Heart Attack/AMI: Yes (2004) Congestive Heart Failure: Yes Diabetes: Yes Arthritis: Yes Psychiatric Treatment: Yes (PTSD) Asthma: Yes COPD: Yes Additional medical history: hepatitis C, CAD, Sleep apnea, GERD. Above entered by nursing. Coronary artery disease is apparently a correct. I'm not sure about hepatitis C. The patient has a nonischemic cardiomyopathy with an EF of 35%. Surgical History Additional Surgical History: open heart surgery, left knee replacement, apoorva in right leg, surgical repair of disc in neck Social History Smoking Status: Former Smoker Family History Htn - Medications Home Medications: Home Medications Medication Instructions Recorded Confirmed Last Taken Type Biotin [Biotin 10,000 rapdis] 10,000 mcg PO DAILY 04/12/19 08/23/19 Unknown History Diclofenac Sodium 75 mg PO DAILY 04/12/19 08/23/19 04/12/19 07:00 History Gabapentin [Neurontin] 600 mg PO BID 04/12/19 08/23/19 04/12/19 07:00 History 600 Losartan Potassium 50 mg PO DAILY 04/12/19 08/23/19 Unknown History metFORMIN [Glucophage] 500 mg PO BID 04/12/19 08/23/19 Unknown History Prednisone [predniSONE 10 mg 10 mg PO .TAPER #1 tab.ds.pk 04/14/19 08/23/19 Unknown Rx (6-Day Pack, 21 Tabs)] carvediloL [Coreg] 3.125 mg PO BID #60 tablet 04/14/19 08/23/19 Unknown Rx Benzonatate [Tessalon Perles] 100 mg PO Q8HR PRN #20 capsule 05/30/19 08/23/19 Unknown Rx ALBUTEROL NEB's [Proventil 0.083% 2.5 mg IH TID PRN #90 neb 08/01/19 08/23/19 Unknown Rx NEBS] Albuterol INH(or & Nicu Only) 2 puff IH QID PRN inha 08/01/19 08/23/19 Unknown Rx [ProAir HFA Inhaler] Albuterol INH(or & Nicu Only) 2 puff IH QID PRN #1 pump 08/01/19 08/23/19 Unknown Rx [ProAir HFA Inhaler] Benzonatate [Tessalon Perles] 100 mg PO Q8HR PRN capsule 08/01/19 08/23/19 Unknown Rx Budesonide [Pulmicort Respules] 1 mg IH Q12HRT nebu 08/01/19 08/23/19 Unknown Rx Budesonide/Formoterol Fumarate 10.2 gm IH BID #1 hfa.aer.ad 08/01/19 08/23/19 Unknown Rx [Symbicort 160-4.5 Mcg Inhaler] Furosemide [Lasix TAB] 40 mg PO QDAY #30 tab 08/01/19 08/23/19 Unknown Rx Ipratropium/Albuter (Nf) 2 puff IH QID #1 inha 08/01/19 08/23/19 Unknown Rx [Combivent Inhaler] Tiotropium [place] [Spiriva 1 puff IH DAILY #1 mist.inhal 08/01/19 08/23/19 Unknown Rx Respimat] carvediloL [Coreg] 3.125 mg PO BID tablet 08/01/19 08/23/19 Unknown Rx predniSONE [Deltasone] 40 mg PO QDAY #8 tab 08/01/19 08/23/19 Unknown Rx Review of Systems ROS: Stated complaint: BACK PAIN Other details as noted in HPI Comment: All other systems reviewed and negative Constitutional: denies: chills, fever Eyes: denies: eye pain ENT: denies: ear pain, throat pain Respiratory: denies: cough, shortness of breath Cardiovascular: denies: chest pain, palpitations Gastrointestinal: denies: abdominal pain, vomiting Genitourinary: denies: dysuria, discharge Musculoskeletal: back pain, myalgia Skin: denies: rash, lesions Neurological:severe numbness, paresthesias LLE Medications and Allergies Allergies Allergy/AdvReac Type Severity Reaction Status Date / Time sulfamethoxazole Allergy Hives Verified 04/21/16 02:53 [From Bactrim] trimethoprim [From Bactrim] Allergy Hives Verified 04/21/16 02:53 Home Medications Medication Instructions Recorded Confirmed Last Taken Type Biotin [Biotin 10,000 rapdis] 10,000 mcg PO DAILY 04/12/19 08/23/19 Unknown History Diclofenac Sodium 75 mg PO DAILY 04/12/19 08/23/19 04/12/19 07:00 History Gabapentin [Neurontin] 600 mg PO BID 04/12/19 08/23/19 04/12/19 07:00 History 600 Losartan Potassium 50 mg PO DAILY 04/12/19 08/23/19 Unknown History metFORMIN [Glucophage] 500 mg PO BID 04/12/19 08/23/19 Unknown History Prednisone [predniSONE 10 mg 10 mg PO .TAPER #1 tab.ds.pk 04/14/19 08/23/19 Unknown Rx (6-Day Pack, 21 Tabs)] carvediloL [Coreg] 3.125 mg PO BID #60 tablet 04/14/19 08/23/19 Unknown Rx Benzonatate [Tessalon Perles] 100 mg PO Q8HR PRN #20 capsule 05/30/19 08/23/19 Unknown Rx ALBUTEROL NEB's [Proventil 0.083% 2.5 mg IH TID PRN #90 neb 08/01/19 08/23/19 Unknown Rx NEBS] Albuterol INH(or & Nicu Only) 2 puff IH QID PRN inha 08/01/19 08/23/19 Unknown Rx [ProAir HFA Inhaler] Albuterol INH(or & Nicu Only) 2 puff IH QID PRN #1 pump 08/01/19 08/23/19 Unknown Rx [ProAir HFA Inhaler] Benzonatate [Tessalon Perles] 100 mg PO Q8HR PRN capsule 08/01/19 08/23/19 Unknown Rx Budesonide [Pulmicort Respules] 1 mg IH Q12HRT nebu 08/01/19 08/23/19 Unknown Rx Budesonide/Formoterol Fumarate 10.2 gm IH BID #1 hfa.aer.ad 08/01/19 08/23/19 Unknown Rx [Symbicort 160-4.5 Mcg Inhaler] Furosemide [Lasix TAB] 40 mg PO QDAY #30 tab 08/01/19 08/23/19 Unknown Rx Ipratropium/Albuter (Nf) 2 puff IH QID #1 inha 08/01/19 08/23/19 Unknown Rx [Combivent Inhaler] Tiotropium [place] [Spiriva 1 puff IH DAILY #1 mist.inhal 08/01/19 08/23/19 Unknown Rx Respimat] carvediloL [Coreg] 3.125 mg PO BID tablet 08/01/19 08/23/19 Unknown Rx predniSONE [Deltasone] 40 mg PO QDAY #8 tab 08/01/19 08/23/19 Unknown Rx Active Meds: Active Medications Albuterol (Proventil) 2.5 mg IH Q4HRT PRN PRN Reason: Shortness Of Breath Budesonide (Pulmicort) 0.5 mg IH Q12HRT [facility] Last Admin: 08/23/19 22:21 Dose: 0.5 mg Documented by: Dextrose (D50w (25gm) Syringe) 0 ml IV Q30MIN PRN; Protocol PRN Reason: Hypoglycemia Furosemide (Lasix) 40 mg PO QDAY [facility] Gabapentin (Gabapentin) 600 mg PO BID [facility] Last Admin: 08/23/19 23:14 Dose: 600 mg Documented by: Insulin Human Lispro (Humalog) 0 [address] [facility]; Protocol Last Admin: 08/23/19 23:15 Dose: 2 unit Documented by: Losartan Potassium (Cozaar) 50 mg PO QDAY [facility] Last Admin: 08/23/19 23:17 Dose: Not Given Documented by: Metformin HCl (Glucophage) 500 mg PO BIDDIAB [facility] Morphine Sulfate (Morphine) 2 mg IV Q4H PRN PRN Reason: Pain , Severe (7-10) Last Admin: 08/23/19 23:15 Dose: 2 mg Documented by: Oxycodone/Acetaminophen (Percocet 5/325) 1 tab PO Q4H PRN PRN Reason: Pain, Moderate (4-6) Exam - Constitutional Vitals: Temp Pulse Resp BP Pulse Ox 98.2 F 67 20 105/58 94 08/23/19 21:32 08/23/19 23:17 08/23/19 23:15 08/23/19 23:17 08/23/19 21:32 General appearance: Present: no acute distress, well-nourished - EENT Eyes: Present: PERRL ENT: hearing intact, clear oral mucosa - Neck Neck: Present: supple, normal ROM - Respiratory Respiratory effort: normal Respiratory: bilateral: CTA - Cardiovascular Heart rate: 78 Rhythm: regular Heart Sounds: Present: S1 & S2. Absent: rub, click - Extremities Extremities: no ischemia, pulses intact, pulses symmetrical, No edema Peripheral Pulses: within normal limits - Abdominal General gastrointestinal: Present: soft, non-tender, non-distended, normal bowel sounds Female genitourinary: Present: normal - Rectal Rectal Exam: deferred - Integumentary Integumentary: Present: clear, warm, dry - Musculoskeletal Musculoskeletal: gait normal, strength equal bilaterally - Psychiatric Psychiatric: appropriate mood/affect, intact judgment & insight - Neurologic Neurologic: CNII-XII intact, moves all extremities KLEBER score - Kleber Score Age > 65: (0) No Aspirin use within the Past 7 Days: (0) No 3 or more CAD Risk Factors: (0) No 2 or more Angina events in past 24 hrs: (0) No Known CAD with more than 50% Stenosis: (0) No Elevated Cardiac Markers: (0) No ST Deviation Greater than 0.5mm: (0) No KLEBER Score: 0 Results - Labs CBC & Chem 7: 08/23/19 15:57 08/23/19 17:21 Labs: Laboratory Last Values WBC 8.3 K/mm3 (4.5-11.0) 08/23/19 15:57 RBC 4.60 M/mm3 (3.65-5.03) 08/23/19 15:57 Hgb 13.6 gm/dl (10.1-14.3) 08/23/19 15:57 Hct 41.8 % (30.3-42.9) 08/23/19 15:57 MCV 91 fl (79-97) 08/23/19 15:57 MCH 30 pg (28-32) 08/23/19 15:57 MCHC 33 % (30-34) 08/23/19 15:57 RDW 13.6 % (13.2-15.2) 08/23/19 15:57 Plt Count 278 K/mm3 (140-440) 08/23/19 15:57 Lymph % (Auto) 20.4 % (13.4-35.0) 08/23/19 15:57 [place] % (Auto) 7.8 % (0.0-7.3) H 08/23/19 15:57 Eos % (Auto) 3.2 % (0.0-4.3) 08/23/19 15:57 Baso % (Auto) 1.0 % (0.0-1.8) 08/23/19 15:57 Lymph # 1.7 K/mm3 (1.2-5.4) 08/23/19 15:57 [place] # 0.6 K/mm3 (0.0-0.8) 08/23/19 15:57 Eos # 0.3 K/mm3 (0.0-0.4) 08/23/19 15:57 Baso # 0.1 K/mm3 (0.0-0.1) 08/23/19 15:57 Seg Neutrophils % 67.6 % (40.0-70.0) 08/23/19 15:57 Seg Neutrophils # 5.6 K/mm3 (1.8-7.7) 08/23/19 15:57 Sodium 141 mmol/L (137-145) 08/23/19 17:21 Potassium 4.4 mmol/L (3.6-5.0) 08/23/19 17:21 Chloride 104.7 mmol/L (98-107) 08/23/19 17:21 Carbon Dioxide 25 mmol/L (22-30) 08/23/19 17:21 Anion Gap 16 mmol/L 08/23/19 17:21 BUN 22 mg/dL (7-17) H 08/23/19 17:21 Creatinine 0.8 mg/dL (0.7-1.2) 08/23/19 17:21 Estimated GFR > 60 ml/min 08/23/19 17:21 BUN/Creatinine Ratio 28 % 08/23/19 17:21 Glucose 232 mg/dL (65-100) H 08/23/19 17:21 Calcium 9.0 mg/dL (8.4-10.2) 08/23/19 17:21 Total Bilirubin 0.20 mg/dL (0.1-1.2) 08/23/19 17:21 AST 12 units/L (5-40) 08/23/19 17:21 ALT 14 units/L (7-56) 08/23/19 17:21 Alkaline Phosphatase 59 units/L (35-129) 08/23/19 17:21 Total Protein 6.7 g/dL (6.3-8.2) 08/23/19 17:21 Albumin 3.5 g/dL (3.9-5) L 08/23/19 17:21 Albumin/Globulin Ratio 1.1 % 08/23/19 17:21 Urine Color Yellow (Yellow) 08/23/19 Unknown Urine Turbidity Clear (Clear) 08/23/19 Unknown Urine pH 6.0 (5.0-7.0) 08/23/19 Unknown Ur Specific [place] 1.024 (1.003-1.030) 08/23/19 Unknown Urine Protein <15 mg/dl mg/dL (Negative) 08/23/19 Unknown Urine Glucose (UA) Neg mg/dL (Negative) 08/23/19 Unknown Urine Ketones Neg mg/dL (Negative) 08/23/19 Unknown Urine Blood Neg (Negative) 08/23/19 Unknown Urine Nitrite Neg (Negative) 08/23/19 Unknown Urine Bilirubin Neg (Negative) 08/23/19 Unknown Urine Urobilinogen 2.0 mg/dL (<2.0) 08/23/19 Unknown Ur Leukocyte Esterase Neg (Negative) 08/23/19 Unknown Urine WBC (Auto) < 1.0 /HPF (0.0-6.0) 08/23/19 Unknown Urine RBC (Auto) 1.0 /HPF (0.0-6.0) 08/23/19 Unknown U Epithel Cells (Auto) 1.0 /HPF (0-13.0) 08/23/19 Unknown Short CBC 08/23/19 Range/Units 15:57 WBC 8.3 (4.5-11.0) K/mm3 Hgb 13.6 (10.1-14.3) gm/dl Hct 41.8 (30.3-42.9) % Plt Count 278 (140-440) K/mm3 BMP 08/23/19 08/23/19 15:57 17:21 Sodium TNR 141 Potassium TNR 4.4 Chloride TNR 104.7 Carbon Dioxide TNR 25 BUN TNR 22 H Creatinine TNR 0.8 Glucose TNR 232 H Calcium TNR 9.0 Liver Function 08/23/19 08/23/19 Range/Units 15:57 17:21 Total Bilirubin TNR 0.20 AST TNR 12 ALT TNR 14 Alkaline Phosphatase TNR 59 Albumin TNR 3.5 L Urine 08/23/19 Range/Units Unknown Urine Color Yellow (Yellow) Urine pH 6.0 (5.0-7.0) Ur Specific [place] 1.024 (1.003-1.030) Urine Protein <15 mg/dl (Negative) mg/dL Urine Glucose (UA) Neg (Negative) mg/dL - Imaging and Cardiology Imaging and Cardiology: CT lumbar spine wo con INDICATION / CLINICAL INFORMATION: 59 years Female; low back pain.reformatted images were produced. . COMPARISON: None available. FINDINGS: POST-SURGICAL CHANGES: None. ALIGNMENT: There is slight retrolisthesis of L3 with respect to L2 and L4, which appears to be on degenerative basis. Similar findings seen on prior. Straightening of the lumbar spine noted-also seen on prior. VERTEBRAE: No signs of fracture. Vertebral bodies are grossly normal in height throughout. [id number] ANALYSIS: L1-2: Mild disc bulge and moderate facet hypertrophy. Mild canal and foraminal narrowing. No significant change from prior. L2-3: Moderate disc bulge and facet hypertrophy. Moderate to high-grade canal narrowing along with lateral recess narrowing. Findings could affect the L3 nerves. Mild foraminal narrowing bilaterally without significant sequela. Similar findings seen on prior. L3-4: Moderate disc bulge. [id number] facet hypertrophy on the left and mild on the right. Moderate to high-grade canal narrowing noted. There is also moderate foraminal narrowing bilaterally. Findings could affect the exiting L3 and descending L4 nerves. Similar findings seen on prior. L4-5: Moderate disc bulge and mild facet hypertrophy. Mild to moderate canal narrowing. There is also a broad-based left lateral recess/foraminal/extra wilfrid inal disc protrusion seen with spondylosis. There is encroachment upon and mild flattening of the left L4 nerve. [id number] foraminal narrowing on the right without impingement. Left lateral recess may be more greatly narrowed than the right. Overall, similar type findings are seen on prior. L5-S1: Mild disc bulge and mild facet hypertrophy. Left lateral recess/foraminal disc protrusion is seen, with associated spondylosis. There is encroachment upon and flattening of the left L5 nerve. Similar findings to a lesser degree noted on the right. Overall, findings are similar to that seen on prior exam. PARASPINAL SOFT TISSUES: No significant abnormality. ADDITIONAL FINDINGS: None. IMPRESSION: 1. No evidence of epidural fluid collection or discitis. 2. Degenerative changes as described above. Signer Name: Raymundo Levy MD, III Signed: 08/23/2019 6:54 PM Workstation Name: [id number] LS Spine xray IMPRESSION: Lumbar spine without evidence of acute osseous injury. Multilevel moderate to severe degenerative change spanning L3/L4 and L4/L5 with intervertebral disc space narrowing and endplate osteoporosis. When accounting for differences in technique, this appears not significantly changed from 11/25/2018 CT. If back pain persists, an MRI may be beneficial for further evaluation. Loss of lumbar lordosis with straightening of the lumbar spine. This may be related to patient positioning or muscle spasm. Assessment and Plan Advance Directives: Yes (Full code) VTE prophylaxis?: Chemical - Patient Problems (1) Lumbar back pain with radiculopathy affecting left lower extremity Current Visit: Yes Status: Acute Plan to address problem: Reason for admission --Intractable pain and inability to walk. Pain control MR BRIANNE frederick for better delineation Severe DDD of LS spine (2) CAD (coronary artery disease) Current Visit: No Status: Chronic Qualifiers: Coronary Disease-Associated Artery/Lesion type: [place] artery [place] vs. transplanted heart: [place] heart Associated angina: without angina Qualified Code(s): I25.10 - Atherosclerotic heart disease of [place] coronary artery without angina pectoris Plan to address problem: ASA 325 po qd (3) CHF (congestive heart failure) Current Visit: No Status: Chronic Qualifiers: Heart failure type: combined systolic and diastolic Heart failure chronicity: chronic Qualified Code(s): I50.42 - Chronic combined systolic (congestive) and diastolic (congestive) heart failure Plan to address problem: Cont Lasix (4) Osteoarthritis Current Visit: No Status: Chronic Qualifiers: Osteoarthritis type: unspecified Laterality: unspecified laterality Plan to address problem: Cont NSAIDs (5) HTN (hypertension) Current Visit: Yes Status: Chronic Qualifiers: Hypertension type: essential hypertension Qualified Code(s): I10 - Essential (primary) hypertension Plan to address problem: Cont antihypertensives (6) T2DM (type 2 diabetes mellitus) Current Visit: Yes Status: Chronic Qualifiers: Diabetes mellitus intermediate designer insulin use: unspecified intermediate designer insulin use status Plan to address problem: Cont Hypoglycemics and coverage Check A1c (7) COPD (chronic obstructive pulmonary disease) Current Visit: Yes Status: Chronic Qualifiers: Emphysema type: unspecified Plan to address problem: Cont Bronchodilators (8) Peripheral neuropathy Current Visit: Yes Status: Chronic Qualifiers: Peripheral neuropathy type: polyneuropathy, unspecified Qualified Code(s): G62.9 - Polyneuropathy, unspecified Plan to address problem: Conrt gabapentin (9) Nicotine dependence Current Visit: No Status: Chronic Qualifiers: Nicotine product type: cigarettes Plan to address problem: COunselled and Placed on Nicoderm patch (10) DVT prophylaxis Current Visit: No Status: Acute Plan to address problem: On Heparin and GI prophylaxis (11) Advanced care planning/counseling discussion Current Visit: Yes Status: Acute Plan to address problem: Patient is full code (12) Discharge planning issues Current Visit: Yes Status: Acute Plan to address problem: patient admitted for pain control ,PT and MRI of LS Spine Admitted as observation status. Ortho consult requested
[2019-08-24] MEDS ORDERED: ALBUTEROL 8.5 GM INHALATION IH PRN ×2 (00:05)
[2019-08-24] MEDS ORDERED: ALBUTEROL 2.5 MG/3 ML NEBU IH PRN (00:05)
[2019-08-24] MEDS ORDERED: ONDANSETRON 4 MG/2 ML INJ IV PRN (00:12)
[2019-08-24] MEDS ORDERED: ACETAMINOPHEN 325 MG TAB PO PRN (00:12)
[2019-08-24] MEDS ORDERED: NON-FORMULARY EACH (Budesonide/Formoterol Fumarate [Symbicort 160-4.5 Mcg Inhaler] 10.2 GM IH SCH (00:15)
[2019-08-24] MEDS: MORPHINE 2 MG/1 ML INJ IV PRN (05:22)
[2019-08-24] MEDS: BUDESONIDE 0.5 MG/2 ML NEBU IH SCH ×2 (08:07→20:22)
[2019-08-24] MEDS: ARFORMOTEROL 15 MCG/2 ML NEBU IH SCH ×2 (08:07→20:22)
[2019-08-24] MEDS: IPRATROPIUM/ALBUTEROL SULFATE 3 ML AMPUL.NEB IH SCH ×4 (08:07→20:23)
[2019-08-24] MEDS: HYDROmorphone 1 MG/1 ML INJ IV PRN ×2 (09:50→20:22)
[2019-08-24] MEDS ORDERED: predniSONE 20 MG TAB PO SCH (10:00)
[2019-08-24] MEDS ORDERED: IPRATROPIUM IH SCH (10:00)
[2019-08-24] MEDS ORDERED: TIOTROPIUM BROMIDE IH SCH (10:00)
[2019-08-24] MEDS ORDERED: ALBUTER IH SCH (10:00)
[2019-08-24] MEDS: INSULIN LISPRO 100 UNIT/ML SUB-Q SCH ×4 (10:29→23:14)
[2019-08-24] MEDS ORDERED: LORazepam 2 MG/ML VIAL IV ONE (10:30)
[2019-08-24] MEDS: LOSARTAN 50 MG TAB PO SCH (12:55)
[2019-08-24] MEDS: NICOTINE 14 MG/24 HR PATCH TD SCH (12:55)
[2019-08-24] MEDS: HEPARIN 5,000 UNIT/1 ML VIAL SUB-Q SCH ×2 (12:56→23:15)
[2019-08-24] MEDS: FUROSEMIDE 40 MG TAB PO SCH (12:56)
[2019-08-24] MEDS: FAMOTIDINE 20 MG/2 ML INJ IV SCH ×2 (12:56→23:11)
[2019-08-24] MEDS: metFORMIN 500 MG TAB PO SCH ×2 (12:56→17:06)
[2019-08-24] MEDS: GABAPENTIN 300 MG CAP PO SCH ×2 (12:56→23:10)
[2019-08-24] MEDS: carvediloL 3.125 MG TAB PO SCH ×2 (12:59→23:12)
[2019-08-24] MEDS: DICLOFENAC DR 75 MG TAB PO SCH (13:07)
--- NOTE | 2019-08-24 14:09 | Magnetic Resonance Report ---
MRI LUMBAR SPINE WITHOUT AND WITH CONTRAST INDICATION / CLINICAL INFORMATION: Sciatica. TECHNIQUE: Multisequence, multiplanar images of the lumbar spine were obtained. Contrast dose report: MultiHance: Volume injected not specified COMPARISON: None available. FINDINGS: ALIGNMENT: Loss of the normal lumbar lordosis is noted. No additional abnormalities of alignment are identified. VERTEBRAE:Reactive changes secondary to degenerative disc disease are observed at the vertebral body endplates adjacent to the L3-4 and L4-5 discs where Modic type II degenerative changes are identified . No suspicious areas of abnormal bone marrow signal intensity are identified. DISC MORPHOLOGY: Loss of disc height secondary to disc desiccation is observed at the L2, L3 and L4 d iscs. Paradoxical increased signal intensity is seen within the L3 intervertebral disc perhaps relate d to cystic degeneration. There is no adjacent bone marrow edema. VISUALIZED SPINAL CORD: Distal thoracic spinal cord, conus and nerve roots of the cauda equina all wallace ve an unremarkable appearance. Conus terminates at about the level of the superior endplate of L1. [id number] ANALYSIS: L1-2: No significant abnormality. L2-3: Disc desiccation is noted. Mild broad-based disc bulge, facet arthropathy and thickening of the ligamentum flavum superimposed on unfavorably narrowed central spinal canal result in mild central c anal stenosis at the L2-3 level. The L2 nerve root neuroforamina are adequate in size. Prominent ante rior osteophyte formation is incidentally noted. L3-4: Near-complete loss of disc height is noted. Broad-based disc bulge is evident. There is a super imposed left lateral recess disc extrusion with thecal sac compression and compression of the left L4 nerve root in its lateral recess. Moderate central canal stenosis is present. Loss of disc height an d facet arthropathy and broad-based disc bulge contribute to moderate foraminal stenosis bilaterally at the L3 nerve root level. Anterior and bilateral lateral osteophyte formation is incidentally noted . L4-5: Advanced disc desiccation is noted. Broad-based disc bulge is demonstrated. There is a superimp osed left lateral recess, foraminal and far lateral disc extrusion. Severe central canal stenosis is evident and severe left sided L4 nerve root neural foraminal narrowing is observed. Moderate right-si ded L4 nerve root neuroforaminal stenosis is demonstrated. Anterior and left lateral osteophyte forma tion is incidentally noted. L5-S1: Mild disc desiccation is noted. There is a small central disc extrusion without associated the marissa sac deformity or nerve root compression. Central spinal canal is adequate in size at the lumbosac ral junction. Loss of disc height contributes to severe bilateral neuroforaminal stenosis at the L5 n erve root level. PARASPINAL SOFT TISSUES: Evaluation of the paraspinous soft tissues reveals no definite abnormalities . Contrast administration: Following administration of intravenous contrast material there is enhanceme nt of normal vascular structures. No areas of abnormal contrast enhancement are identified. IMPRESSION: 1. Widespread lumbar spondylosis. 2. Left lateral recess disc extrusion at L3-4 with thecal sac compression and compression of the left L4 nerve root in its lateral recess. Moderate central canal stenosis is also observed at the L3-4 le jt. 3. At L4-5 left lateral recess, foraminal and far lateral disc extrusion is identified with compress ion of the left L4 nerve root in its neural foramina and compression of the left L5 nerve root in its lateral recess. Severe central canal stenosis is demonstrated at the L4-5 level. 4. Multifocal neuroforaminal stenosis as described level by level above. Signer Name: Brent Knox MD Signed: 08/24/2019 2:05 PM Workstation Name: [id number]
--- NOTE | 2019-08-24 16:11 | Progress Note ---
Assessment and Plan / Lumbar back pain with radiculopathy affecting left lower extremity due to Severe DDD of LS spine and L 3/4/5 disc extrusion with L4 and L5 nerve root compression Reason for admission --Intractable pain and inability to walk. Pain control, follow ortho recommendation MR DECK[facility] pine: 1. Widespread lumbar spondylosis. 2. Left lateral recess disc extrusion at L3-4 with thecal sac compression and compression of the left L4 nerve root in its lateral recess. Moderate central canal stenosis is also observed at the L3-4 level. 3. At L4-5 left lateral recess, foraminal and far lateral disc extrusion is identified with compression of the left L4 nerve root in its neural foramina and compression of the left L5 nerve root in its lateral recess. Severe central canal stenosis is demonstrated at the L4-5 level. 4. Multifocal neuroforaminal stenosis as described level by level above. / CAD (coronary artery disease) ASA 325 po qd and statin daily / CHF (congestive heart failure) compensated, cont home meds / Osteoarthritis Cont NSAIDs / HTN (hypertension) Cont antihypertensives /T2DM (type 2 diabetes mellitus) Cont Hypoglycemics and coverage Check A1c / COPD (chronic obstructive pulmonary disease) Cont Bronchodilators / Peripheral neuropathy Cont gabapentin /Nicotine dependence COunselled and Placed on Nicoderm patch / DVT prophylaxis On Heparin and GI prophylaxis / Advanced care planning/counseling discussion Patient is full code / Discharge planning issues patient admitted for pain control, PT MRI showed L3/4 disc extrusion and compression of L4 nerve root Ortho consult requested - will follow Subjective Date of service: 08/24/19 Interval history: Patient seen and examined c/o lower lumber back pain and left sided sciatica pain unable to sit on the bed, or get up from the bed Objective - Constitutional Vitals: Vital Signs - 12hr 08/24/19 08/24/19 08/24/19 05:22 05:52 08:00 Temperature Pulse Rate Pulse Rate [ 67 Anterior Bilateral Throughout] Respiratory 20 16 Rate Respiratory 18 Rate [Anterior Bilateral Throughout] Blood Pressure O2 Sat by Pulse Oximetry 08/24/19 13:02 Temperature 98.2 F Pulse Rate 91 H Pulse Rate [ Anterior Bilateral Throughout] Respiratory 22 Rate Respiratory Rate [Anterior Bilateral Throughout] Blood Pressure 121/70 O2 Sat by Pulse 98 Oximetry General appearance: Present: mild distress, obese - EENT Eyes: PERRL, EOM intact ENT: hearing intact, clear oral mucosa Ears: bilateral: normal - Neck Neck: supple, normal ROM - Respiratory Respiratory effort: normal Respiratory: bilateral: CTA - Cardiovascular Rhythm: regular Heart Sounds: Present: S1 & S2. Absent: gallop, rub Extremities: pulses intact, No edema, normal color - Gastrointestinal General gastrointestinal: Present: soft, non-tender, non-distended, normal bowel sounds - Integumentary Integumentary: clear, warm, dry - Musculoskeletal Musculoskeletal: strength equal bilaterally - Neurologic Neurologic: moves all extremities, no gait normal - Psychiatric Psychiatric: memory intact, appropriate mood/affect, intact judgment & insight - Labs CBC & Chem 7: 08/23/19 15:57 08/23/19 17:21 Labs: Abnormal lab results 08/23/19 08/23/19 08/23/19 Range/Units 15:57 17:21 21:44 [place] % (Auto) 7.8 H (0.0-7.3) % BUN 22 H (7-17) mg/dL Glucose 232 H (65-100) mg/dL POC Glucose 198 H (70-105) Albumin 3.5 L (3.9-5) g/dL 08/24/19 Range/Units 07:50 [place] % (Auto) (0.0-7.3) % BUN (7-17) mg/dL Glucose (65-100) mg/dL POC Glucose 116 H (70-105) Albumin (3.9-5) g/dL
--- NOTE | 2019-08-24 19:38 | Consultation ---
History of Present Illness Consult date: 08/24/19 Reason for Consult: Back pain Chief complaint: Back pain radiating to left leg History of present illness: Patient is a 59-year-old woman with history of hypertension, CAD, CHF, diabetes, PTSD, asthma, COPD, HCV, NANCY. Patient states that she has had a h/o chronic back pain with sciatica on the left side, for which she is seen by neurology outpatient and takes gabapentin and baclofen, however they do not help her pain very much. She p/w acute worsening of Lt. back pain for the past week. Pain radiates from left lumbar region to left buttock to left leg. As pain began to become unbearable, patient came to [facility] for further evaluation. Past History Past Medical History: other (history of hypertension, CAD, CHF, diabetes, PTSD, asthma, COPD, HCV, NANCY) Social history: lives with family Family history: no significant family history Medications and Allergies Allergies Allergy/AdvReac Type Severity Reaction Status Date / Time sulfamethoxazole Allergy Hives Verified 04/21/16 02:53 [From Bactrim] trimethoprim [From Bactrim] Allergy Hives Verified 04/21/16 02:53 Home Medications Medication Instructions Recorded Confirmed Last Taken Type Biotin [Biotin 10,000 rapdis] 10,000 mcg PO DAILY 04/12/19 08/23/19 Unknown History Diclofenac Sodium 75 mg PO DAILY 04/12/19 08/23/19 04/12/19 07:00 History Gabapentin [Neurontin] 600 mg PO BID 04/12/19 08/23/19 04/12/19 07:00 History 600 Losartan Potassium 50 mg PO DAILY 04/12/19 08/23/19 Unknown History metFORMIN [Glucophage] 500 mg PO BID 04/12/19 08/23/19 Unknown History Prednisone [predniSONE 10 mg 10 mg PO .TAPER #1 tab.ds.pk 04/14/19 08/23/19 Unknown Rx (6-Day Pack, 21 Tabs)] carvediloL [Coreg] 3.125 mg PO BID #60 tablet 04/14/19 08/23/19 Unknown Rx Benzonatate [Tessalon Perles] 100 mg PO Q8HR PRN #20 capsule 05/30/19 08/23/19 Unknown Rx ALBUTEROL NEB's [Proventil 0.083% 2.5 mg IH TID PRN #90 neb 08/01/19 08/23/19 Unknown Rx NEBS] Albuterol INH(or & Nicu Only) 2 puff IH QID PRN inha 08/01/19 08/23/19 Unknown Rx [ProAir HFA Inhaler] Albuterol INH(or & Nicu Only) 2 puff IH QID PRN #1 pump 08/01/19 08/23/19 Unknown Rx [ProAir HFA Inhaler] Benzonatate [Tessalon Perles] 100 mg PO Q8HR PRN capsule 08/01/19 08/23/19 U nknown Rx Budesonide [Pulmicort Respules] 1 mg IH Q12HRT nebu 08/01/19 08/23/19 Unknown Rx Budesonide/Formoterol Fumarate 10.2 gm IH BID #1 hfa.aer.ad 08/01/19 08/23/19 Unknown Rx [Symbicort 160-4.5 Mcg Inhaler] Furosemide [Lasix TAB] 40 mg PO QDAY #30 tab 08/01/19 08/23/19 Unknown Rx Ipratropium/Albuter (Nf) 2 puff IH QID #1 inha 08/01/19 08/23/19 Unknown Rx [Combivent Inhaler] Tiotropium [place] [Spiriva 1 puff IH DAILY #1 mist.inhal 08/01/19 08/23/19 Unknown Rx Respimat] carvediloL [Coreg] 3.125 mg PO BID tablet 08/01/19 08/23/19 Unknown Rx predniSONE [Deltasone] 40 mg PO QDAY #8 tab 08/01/19 08/23/19 Unknown Rx Active Meds: Active Medications Acetaminophen (Tylenol) 650 mg PO Q4H PRN PRN Reason: Pain MILD(1-3)/Fever >100.5/MAY Albuterol (Proventil) 2.5 mg IH TIDRT PRN PRN Reason: Wheezing Albuterol/Ipratropium (Duoneb *Not For Prn Use*) 1 ampul IH QIDRT [facility] Last Admin: 08/24/19 17:13 Dose: Not Given Documented by: Arformoterol Tartrate (Stevea Nebu) 15 mcg IH Q12HRT [facility] Last Admin: 08/24/19 08:07 Dose: 15 mcg Documented by: Budesonide (Pulmicort) 0.5 mg IH Q12HRT [facility] Last Admin: 08/24/19 08:07 Dose: 0.5 mg Documented by: Carvedilol (Coreg) 3.125 mg PO BID [facility] Last Admin: 08/24/19 12:59 Dose: 3.125 mg Documented by: Carvedilol (Coreg) 3.125 mg PO BID [facility] Dextrose (D50w (25gm) Syringe) 0 ml IV Q30MIN PRN; Protocol PRN Reason: Hypoglycemia Diclofenac Sodium (Voltaren Dr) 75 mg PO DAILY [facility] Last Admin: 08/24/19 13:07 Dose: 75 mg Documented by: Famotidine (Pepcid) 20 mg IV BID [facility] Last Admin: 08/24/19 12:56 Dose: 20 mg Documented by: Furosemide (Lasix) 40 mg PO QDAY [facility] Last Admin: 08/24/19 12:56 Dose: 40 mg Documented by: Gabapentin (Gabapentin) 600 mg PO BID [facility] Last Admin: 08/24/19 12:56 Dose: 600 mg Documented by: Heparin Sodium (Porcine) (Heparin) 5,000 unit SUB-Q Q12HR [facility] Last Admin: 08/24/19 12:56 Dose: 5,000 unit Documented by: Hydromorphone HCl (Dilaudid) 1 mg IV Q3H PRN PRN Reason: Pain , Severe (7-10) Last Admin: 08/24/19 09:50 Dose: 1 mg Documented by: Insulin Human Lispro (Humalog) 0 unit SUB-Q [facility]; Protocol Last Admin: 08/24/19 17:05 Dose: 2 unit Documented by: Losartan Potassium (Cozaar) 50 mg PO QDAY [facility] Last Admin: 08/24/19 12:55 Dose: 50 mg Documented by: Metformin HCl (Glucophage) 500 mg PO BIDDIAB [facility] Last Admin: 08/24/19 17:06 Dose: 500 mg Documented by: Morphine Sulfate (Morphine) 2 mg IV Q4H PRN PRN Reason: Pain , Severe (7-10) Last Admin: 08/24/19 05:22 Dose: 2 mg Documented by: Nicotine (Habitrol) 14 mg TD QDAY [facility] Last Admin: 08/24/19 12:55 Dose: 14 mg Documented by: Ondansetron HCl (Zofran) 4 mg IV Q8H PRN PRN Reason: Nausea And Vomiting Oxycodone/Acetaminophen (Percocet 5/325) 1 tab PO Q4H PRN PRN Reason: Pain, Moderate (4-6) Last Admin: 08/24/19 12:59 Dose: 1 tab Documented by: Sodium Chloride (Sodium Chloride Flush Syringe 10 Ml) 10 ml IV BID [facility] Last Admin: 08/24/19 13:05 Dose: 10 ml Documented by: Sodium Chloride (Sodium Chloride Flush Syringe 10 Ml) 10 ml IV PRN PRN PRN Reason: LINE FLUSH Review of Systems All systems: negative Musculoskeletal: other (back pain radiating to left leg) Physical Examination - Vital Signs Vital Signs: Vital Signs Temp Pulse Resp BP Pulse Ox 98.8 F 54 L 15 136/77 99 08/23/19 15:06 08/23/19 15:06 08/23/19 15:06 08/23/19 15:06 08/23/19 15:06 - Physical Exam Narrative exam: Patient is alert, awake, oriented x4, follows complex commands. PERRL, EOMI, VFF, no facial weakness noted, tongue midline, b/l intact to LT. No dysarthria or aphasia noted. 5/5 strength in b/l UE, 2/5 in LLE limited due to pain in back/hip, 5/5 in RLE. B/l intact to LT. B/l intact to FTN. 2+ reflexes throughout. - Constitutional General appearance: uncomfortable - EENT EENT: Present: ATNC, PERRL, mucous membranes moist, hearing intact, vision intact - Respiratory Respiratory: Present: lungs clear, normal breath sounds - Cardiovascular Cardiovascular: Present: regular rate, normal S1, normal S2 Extremities: Present: no clubbing, cyanosis, no inflammation - Gastrointestinal Gastrointestinal: Present: normoactive bowel sounds, soft, non-tender - Integumentary Integumentary: Present: normal - Musculoskeletal Musculoskeletal: Present: pain in joint (back, radiating to LLE) - Psychiatric Psychiatric: Present: mood/affect appropriate Results - Laboratory Findings CBC and BMP: 08/23/19 15:57 08/23/19 17:21 Abnormal Lab Findings: Abnormal Labs 08/23/19 08/23/19 08/23/19 15:57 17:21 21:44 [place] % (Auto) 7.8 H BUN 22 H Glucose 232 H POC Glucose 198 H Albumin 3.5 L 08/24/19 08/24/19 07:50 16:59 [place] % (Auto) BUN Glucose POC Glucose 116 H 193 H Albumin Assessment and Plan Patient is a 59-year-old woman with history of hypertension, CAD, CHF, diabetes, PTSD, asthma, COPD, HCV, NANCY, who p/w acute on chronic lower back pain radiating to LLE. According to the patient's clinical findings, she likely has lumbar radiculopathy. Plan: 1. Lumbar radiculopathy: - MRI reveals Lt. L4 and L5 nerve root compression, as well as L4-L5 severe central canal stenosis. - Recommend orthopedic surgery consult for evaluation of patient, and to determine if patient is a surgical candidate - Recommend PT - Cont. gabapentin and baclofen - If patient is not felt to be a surgical candidate, would recommend for patient to have outpatient follow up with pain management, as she may benefit from local spinal steroid injections. - Will sign off. Please call with any questions. Thank you for allowing me to take part in the care of this patient. Calixto Villalobos MD Neurology
[2019-08-24] MEDS ORDERED: carvediloL 3.125 MG TAB PO SCH (22:00)
[2019-08-25] MEDS: BUDESONIDE 0.5 MG/2 ML NEBU IH SCH ×2 (08:13→20:32)
[2019-08-25] MEDS: IPRATROPIUM/ALBUTEROL SULFATE 3 ML AMPUL.NEB IH SCH ×4 (08:13→20:32)
[2019-08-25] MEDS: ARFORMOTEROL 15 MCG/2 ML NEBU IH SCH ×2 (08:13→20:32)
[2019-08-25] MEDS: INSULIN LISPRO 100 UNIT/ML SUB-Q SCH ×3 (08:30→18:47)
[2019-08-25] MEDS: NICOTINE 14 MG/24 HR PATCH TD SCH ×2 (09:27→09:34)
[2019-08-25] MEDS: DICLOFENAC DR 75 MG TAB PO SCH (09:27)
[2019-08-25] MEDS: FUROSEMIDE 40 MG TAB PO SCH (09:28)
[2019-08-25] MEDS: metFORMIN 500 MG TAB PO SCH (09:28)
[2019-08-25] MEDS: HEPARIN 5,000 UNIT/1 ML VIAL SUB-Q SCH (09:28)
[2019-08-25] MEDS: GABAPENTIN 300 MG CAP PO SCH (09:28)
[2019-08-25] MEDS: FAMOTIDINE 20 MG/2 ML INJ IV SCH (09:29)
[2019-08-25] MEDS: HYDROmorphone 1 MG/1 ML INJ IV PRN ×2 (10:44→14:33)
--- NOTE | 2019-08-25 12:52 | Discharge Summary ---
Providers - Providers Date of Admission: 08/24/19 09:44 Date of discharge: 08/25/19 Attending physician: ABDIEL VARGAS 08/24/19 00:14 Consult to Physician [CONS] Routine Comment: Consulting Provider: WILMAN WATT Physician Instructions: Reason For Exam: Lumbar radiculopathy 08/24/19 00:15 Consult to Physician [CONS] Routine Comment: Consulting Provider: CHACORTA DONG Physician Instructions: Reason For Exam: Lumbar radiculopathy 08/24/19 15:48 Physical Therapy Evaluation and Treat [CONS] Routine Comment: Reason For Exam: Low Back Pain, Sciatica, Unspecified Side Primary care physician: [employer] INVESTIGATOR Hospitalization Condition: Stable Pertinent studies: lumber spine XRY/CT/MRI Hospital course: Discharge diagnosis: / Lumbar back pain with radiculopathy affecting left lower extremity due to Severe DDD of LS spine and L 3/4/5 disc extrusion with L4 and L5 nerve root compression Reason for admission --Intractable pain and inability to walk. MR [place] pine: 1. Widespread lumbar spondylosis. 2. Left lateral recess disc extrusion at L3-4 with thecal sac compression and compression of the left L4 nerve root in its lateral recess. Moderate central canal stenosis is also observed at the L3-4 level. 3. At L4-5 left lateral recess, foraminal and far lateral disc extrusion is identified with compression of the left L4 nerve root in its neural foramina and compression of the left L5 nerve root in its lateral recess. Severe central canal stenosis is demonstrated at the L4-5 level. 4. Multifocal neuroforaminal stenosis as described level by level above. PT recommended outpt PT, no surgical intervention per ortho - outpt f/u with neurosurgeon / CAD (coronary artery disease) ASA 325 po qd and statin daily / CHF (congestive heart failure) compensated, cont home meds / Osteoarthritis Cont NSAIDs / HTN (hypertension) Cont antihypertensives /T2DM (type 2 diabetes mellitus) Cont Hypoglycemics and coverage Check A1c / COPD (chronic obstructive pulmonary disease) Cont Bronchodilators / Peripheral neuropathy Cont gabapentin /Nicotine dependence COunselled and Placed on Nicoderm patch Disposition: DC/[place]-06 HOME [facility] Time spent for discharge: 34 minutes Core Measure Documentation - Palliative Care Palliative Care/ Comfort Measures: Not Applicable - Core Measures Any of the following diagnoses?: none Exam - Constitutional Vitals: Temp Pulse Resp BP Pulse Ox 98.3 F 75 24 137/75 95 08/25/19 11:18 08/25/19 11:18 08/25/19 11:18 08/25/19 11:18 08/25/19 11:18 General appearance: Present: no acute distress, obese - EENT Eyes: Present: PERRL ENT: hearing intact, clear oral mucosa - Neck Neck: Present: supple, normal ROM - Respiratory Respiratory effort: normal Respiratory: bilateral: CTA - Cardiovascular Heart Sounds: Present: S1 & S2. Absent: rub, click - Extremities Extremities: pulses symmetrical, No edema Peripheral Pulses: within normal limits - Abdominal General gastrointestinal: Present: soft, non-tender, non-distended, normal bowel sounds - Integumentary Integumentary: Present: clear, warm, dry - Musculoskeletal Musculoskeletal: gait normal, strength equal bilaterally - Psychiatric Psychiatric: appropriate mood/affect, intact judgment & insight - Neurologic Neurologic: CNII-XII intact, moves all extremities Plan Activity: advance as tolerated, fall precautions Weight Bearing Status: Non-Weight Bearing Diet: low fat, low salt Follow up with: PRIMARY CARE, [Primary Care Provider] - 3-5 Days Prescriptions: Nicotine [Habitrol] 14 mg TD QDAY #7 patch oxyCODONE /ACETAMINOPHEN [Percocet 5/325 mg] 1 tab PO Q4H PRN #14 tablet PRN Reason: Pain, Moderate (4-6)
--- NOTE | 2019-08-25 13:06 | Consultation ---
History of Present Illness - HPI Consult date: 08/25/19 Consult reason: low back pain History of present illness: 59 y/o female with c/o low back and left leg pain and numbness for past several months, no hx of injury states started after working out at gym...previous history of low back and leg pain yrs ago.... Past History Past Medical History: other (history of hypertension, CAD, CHF, diabetes, PTSD, asthma, COPD, HCV, NANCY) Social history: lives with family Family history: no significant family history Medications and Allergies Allergies Allergy/AdvReac Type Severity Reaction Status Date / Time sulfamethoxazole Allergy Hives Verified 04/21/16 02:53 [From Bactrim] trimethoprim [From Bactrim] Allergy Hives Verified 04/21/16 02:53 Home Medications Medication Instructions Recorded Confirmed Last Taken Type Biotin [Biotin 10,000 rapdis] 10,000 mcg PO DAILY 04/12/19 08/23/19 Unknown History Diclofenac Sodium 75 mg PO DAILY 04/12/19 08/23/19 04/12/19 07:00 History Gabapentin [Neurontin] 600 mg PO BID 04/12/19 08/23/19 04/12/19 07:00 History 600 Losartan Potassium 50 mg PO DAILY 04/12/19 08/23/19 Unknown History metFORMIN [Glucophage] 500 mg PO BID 04/12/19 08/23/19 Unknown History carvediloL [Coreg] 3.125 mg PO BID #60 tablet 04/14/19 08/23/19 Unknown Rx Benzonatate [Tessalon Perles] 100 mg PO Q8HR PRN #20 capsule 05/30/19 08/23/19 Unknown Rx ALBUTEROL NEB's [Proventil 0.083% 2.5 mg IH TID PRN #90 neb 08/01/19 08/23/19 Unknown Rx NEBS] Albuterol INH(or & Nicu Only) 2 puff IH QID PRN inha 08/01/19 08/23/19 Unknown Rx [ProAir HFA Inhaler] Albuterol INH(or & Nicu Only) 2 puff IH QID PRN #1 pump 08/01/19 08/23/19 Unknown Rx [ProAir HFA Inhaler] Benzonatate [Tessalon Perles] 100 mg PO Q8HR PRN capsule 08/01/19 08/23/19 Unknown Rx Budesonide [Pulmicort Respules] 1 mg IH Q12HRT nebu 08/01/19 08/23/19 Unknown Rx Budesonide/Formoterol Fumarate 10.2 gm IH BID #1 hfa.aer.ad 08/01/19 08/23/19 Unknown Rx [Symbicort 160-4.5 Mcg Inhaler] Furosemide [Lasix TAB] 40 mg PO QDAY #30 tab 08/01/19 08/23/19 Unknown Rx Ipratropium/Albuter (Nf) 2 puff IH QID #1 inha 08/01/19 08/23/19 Unknown Rx [Combivent Inhaler] Tiotropium [place] [Spiriva 1 puff IH DAILY #1 mist.inhal 08/01/19 08/23/19 Unknown Rx Respimat] carvediloL [Coreg] 3.125 mg PO BID tablet 08/01/19 08/23/19 Unknown Rx Nicotine [Habitrol] 14 mg TD QDAY #7 patch 08/25/19 Unknown Rx oxyCODONE /ACETAMINOPHEN [Percocet 1 tab PO Q4H PRN #14 tablet 08/25/19 Unknown Rx 5/325 mg] Active Meds: Active Medications Acetaminophen (Tylenol) 650 mg PO Q4H PRN PRN Reason: Pain MILD(1-3)/Fever >100.5/MAY Albuterol (Proventil) 2.5 mg IH TIDRT PRN PRN Reason: Wheezing Albuterol/Ipratropium (Duoneb *Not For Prn Use*) 1 ampul IH QIDRT [facility] Last Admin: 08/25/19 12:40 Dose: 1 ampul Documented by: Arformoterol Tartrate (Brovana Nebu) 15 mcg IH Q12HRT [facility] Last Admin: 08/25/19 08:13 Dose: 15 mcg Documented by: Budesonide (Pulmicort) 0.5 mg IH Q12HRT [facility] Last Admin: 08/25/19 08:13 Dose: 0.5 mg Documented by: Carvedilol (Coreg) 3.125 mg PO BID [facility] Last Admin: 08/24/19 23:12 Dose: 3.125 mg Documented by: Dextrose (D50w (25gm) Syringe) 0 ml IV Q30MIN PRN; Protocol PRN Reason: Hypoglycemia Diclofenac Sodium (Voltaren Dr) 75 mg PO DAILY [facility] Last Admin: 08/25/19 09:27 Dose: 75 mg Documented by: Famotidine (Pepcid) 20 mg IV BID [facility] Last Admin: 08/25/19 09:29 Dose: 20 mg Documented by: Furosemide (Lasix) 40 mg PO QDAY [facility] Last Admin: 08/25/19 09:28 Dose: 40 mg Documented by: Gabapentin (Gabapentin) 600 mg PO BID [facility] Last Admin: 08/25/19 09:28 Dose: 600 mg Documented by: Heparin Sodium (Porcine) (Heparin) 5,000 unit SUB-Q Q12HR [facility] Last Admin: 08/25/19 09:28 Dose: 5,000 unit Documented by: Hydromorphone HCl (Dilaudid) 1 mg IV Q3H PRN PRN Reason: Pain , Severe (7-10) Last Admin: 08/25/19 10:44 Dose: 1 mg Documented by: Insulin Human Lispro (Humalog) 0 unit SUB-Q [facility]; Protocol Last Admin: 08/25/19 08:30 Dose: Not Given Documented by: Losartan Potassium (Cozaar) 50 mg PO QDAY [facility] Last Admin: 08/24/19 12:55 Dose: 50 mg Documented by: Metformin HCl (Glucophage) 500 mg PO BIDDIAB [facility] Last Admin: 08/25/19 09:28 Dose: 500 mg Documented by: Morphine Sulfate (Morphine) 2 mg IV Q4H PRN PRN Reason: Pain , Severe (7-10) Last Admin: 08/24/19 05:22 Dose: 2 mg Documented by: Nicotine (Habitrol) 14 mg TD QDAY [facility] Last Admin: 08/25/19 09:34 Dose: Not Given Documented by: Ondansetron HCl (Zofran) 4 mg IV Q8H PRN PRN Reason: Nausea And Vomiting Oxycodone/Acetaminophen (Percocet 5/325) 1 tab PO Q4H PRN PRN Reason: Pain, Moderate (4-6) Last Admin: 08/24/19 12:59 Dose: 1 tab Documented by: Sodium Chloride (Sodium Chloride Flush Syringe 10 Ml) 10 ml IV BID [facility] Last Admin: 08/25/19 09:27 Dose: 10 ml Documented by: Sodium Chloride (Sodium Chloride Flush Syringe 10 Ml) 10 ml IV PRN PRN PRN Reason: LINE FLUSH Assessment and Plan low back and left leg pain conservative mgmt with epidural steroid injections which can be done as outpatient
[2019-08-25] MEDS: carvediloL 3.125 MG TAB PO SCH (13:30)
[2019-08-25] MEDS: LOSARTAN 50 MG TAB PO SCH (13:31)
[2019-08-25 17:51] VITALS: BP 124/67
== END 2019-08-25 23:30 | disposition home health service (06) | DRG 552 ==
LOC: ED 14:21 → 3A 19:57 → OBSVTOIN 08-24 09:44
PROVIDERS: ADMIT Internal Medicine; ATTEND Internal Medicine
DX: M51.17 Intervertebral disc disorders with radiculopathy, lumbosacral region (principal); E11.65 Type 2 diabetes mellitus with hyperglycemia; I25.10 Atherosclerotic heart disease of native coronary artery without angina pectoris; M19.90 Unspecified osteoarthritis, unspecified site; J44.9 Chronic obstructive pulmonary disease, unspecified; E11.42 Type 2 diabetes mellitus with diabetic polyneuropathy; K21.9 Gastro-esophageal reflux disease without esophagitis; I42.8 Other cardiomyopathies; G47.33 Obstructive sleep apnea (adult) (pediatric); R26.2 Difficulty in walking, not elsewhere classified; J45.909 Unspecified asthma, uncomplicated; I11.0 Hypertensive heart disease with heart failure; I50.42 Chronic combined systolic (congestive) and diastolic (congestive) heart failure; F43.10 Post-traumatic stress disorder, unspecified; Z96.652 Presence of left artificial knee joint; Z71.6 Tobacco abuse counseling; F17.210 Nicotine dependence, cigarettes, uncomplicated; Z79.1 Long term (current) use of non-steroidal anti-inflammatories (NSAID); Z79.4 Long term (current) use of insulin; I25.2 Old myocardial infarction; Z79.899 Other long term (current) drug therapy; Z82.49 Family history of ischemic heart disease and other diseases of the circulatory system; Z88.2 Allergy status to sulfonamides
CPT/HCPCS: 36415; 72100; 72131; 72158; 80053; 81001; 82962; 83036; 85025; 87116; 94640; G0378; A9577; J1170; J1644; J1815; J1885; J2060; J2270; J7512

== ENCOUNTER 2020-06-28 11:22 | Emergency (ER) | payer MEDICAID ==
[2020-06-28 11:27] VITALS: BP 130/70
[2020-06-28] MEDS ORDERED: oxyCODONE /ACETAMINOPHEN 5-325MG TAB PO ONE (11:31)
--- NOTE | 2020-06-28 11:35 | Emergency Department Report ---
ED General Adult HPI - General Chief complaint: Dental/Oral Stated complaint: TOOTHACHE/SINUS Time Seen by Provider: 06/28/20 11:27 Source: patient Mode of arrival: Ambulatory Limitations: No Limitations - History of Present Illness Initial comments: 59-year-old -[place] Citizen female patient with history of diabetes, COPD, and CHF presents with complaints of sinus pressure and pain x2 weeks and right upper dental pain x1 week. She rates the pain as a 10/10 in severity and denies any fever/chills/sweats. Pain is worsening. She states she has been using OTC sinus pain medication without relief of her symptoms. Patient also reports that she has not been taking her Metformin for 6 months. She states she is currently following with a primary care provider. She denies any cough, chest pain, swelling, facial swelling, or difficulty opening her jaw. Severity scale (0 -10): 10 - Related Data Home Medications Medication Instructions Recorded Confirmed Last Taken Biotin [Biotin 10,000 rapdis] 10,000 mcg PO DAILY 04/12/19 08/23/19 Unknown Diclofenac Sodium 75 mg PO DAILY 04/12/19 08/23/19 04/12/19 07:00 Gabapentin [Neurontin] 600 mg PO BID 04/12/19 08/23/19 04/12/19 07:00 600 Losartan Potassium 50 mg PO DAILY 04/12/19 08/23/19 Unknown metFORMIN [Glucophage] 500 mg PO BID 04/12/19 08/23/19 Unknown Previous Rx's Medication Instructions Recorded Last Taken Type carvediloL [Coreg] 3.125 mg PO BID #60 tablet 04/14/19 Unknown Rx Benzonatate [Tessalon Perles] 100 mg PO Q8HR PRN #20 capsule 05/30/19 Unknown Rx ALBUTEROL NEB's [Proventil 0.083% 2.5 mg IH TID PRN #90 neb 08/01/19 Unknown Rx NEBS] Albuterol Mdi (or & Nicu Only) 2 puff IH QID PRN inha 08/01/19 Unknown Rx [ProAir HFA Inhaler] Albuterol Mdi (or & Nicu Only) 2 puff IH QID PRN #1 pump 08/01/19 Unknown Rx [ProAir HFA Inhaler] Benzonatate [Tessalon Perles] 100 mg PO Q8HR PRN capsule 08/01/19 Unknown Rx Budesonide [Pulmicort Respules] 1 mg IH Q12HRT nebu 08/01/19 Unknown Rx Budesonide/Formoterol Fumarate 10.2 gm IH BID #1 hfa.aer.ad 08/01/19 Unknown Rx [Symbicort 160-4.5 Mcg Inhaler] Furosemide [Lasix TAB] 40 mg PO QDAY #30 tab 08/01/19 Unknown Rx Ipratropium/Albuter (Nf) 2 puff IH QID #1 inha 08/01/19 Unknown Rx [Combivent Inhaler] Tiotropium [place] [Spiriva 1 puff IH DAILY #1 mist.inhal 08/01/19 Unknown Rx Respimat] carvediloL [Coreg] 3.125 mg PO BID tablet 08/01/19 Unknown Rx Nicotine [Habitrol] 14 mg TD QDAY #7 patch 08/25/19 Unknown Rx oxyCODONE /ACETAMINOPHEN [Percocet 1 tab PO Q4H PRN #14 tablet 08/25/19 Unknown Rx 5/325 mg] Amoxicillin [Trimox CAP] 500 mg PO Q8H #21 capsule 02/16/20 Unknown Rx Ibuprofen [Motrin 800 MG tab] 800 mg PO Q8HR PRN #30 tablet 02/16/20 Unknown Rx Acetaminophen/Codeine [Tylenol 1 tab PO Q8H PRN #10 tab 06/28/20 Unknown Rx /Codeine # 3 tab] Amoxicillin/Potassium Clav 1 each PO BID 10 Days #20 tablet 06/28/20 Unknown Rx [Augmentin 875-125 Tablet] predniSONE [Deltasone] 20 mg PO BID 5 Days #10 tab 06/28/20 Unknown Rx Allergies Allergy/AdvReac Type Severity Reaction Status Date / Time sulfamethoxazole Allergy Hives Verified 02/16/20 15:11 [From Bactrim] trimethoprim [From Bactrim] Allergy Hives Verified 02/16/20 15:11 ED Review of Systems ROS: Stated complaint: TOOTHACHE/SINUS Other details as noted in HPI Constitutional: denies: chills, diaphoresis, fever, malaise, weakness ENT: dental pain. denies: ear pain, throat pain Respiratory: denies: cough, shortness of breath Cardiovascular: denies: chest pain Gastrointestinal: denies: nausea, vomiting Musculoskeletal: denies: back pain Skin: denies: change in color Neurological: headache. denies: weakness ED Past Medical Hx - Past Medical History Previous Medical History?: Yes Hx Hypertension: Yes Hx Heart Attack/AMI: Yes (2004) Hx Congestive Heart Failure: Yes Hx Diabetes: Yes Hx Arthritis: Yes Hx Psychiatric Treatment: Yes (PTSD) Hx Asthma: Yes Hx COPD: Yes Hx HIV: No Additional medical history: hepatitis C, CAD, Sleep apnea, GERD. Above entered by nursing. Coronary artery disease is apparently a correct. I'm not sure about hepatitis C. The patient has a nonischemic cardiomyopathy with an EF of 35%. [place] - Surgical History Past Surgical History?: Yes Additional Surgical History: open heart surgery, left knee replacement, apoorva in right leg, surgical repair of disc in neck - Social History Smoking Status: Former Smoker - Medications Home Medications: Home Medications Medication Instructions Recorded Confirmed Last Taken Type Biotin [Biotin 10,000 rapdis] 10,000 mcg PO DAILY 04/12/19 08/23/19 Unknown History Diclofenac Sodium 75 mg PO DAILY 04/12/19 08/23/19 04/12/19 07:00 History Gabapentin [Neurontin] 600 mg PO BID 04/12/19 08/23/19 04/12/19 07:00 History 600 Losartan Potassium 50 mg PO DAILY 04/12/19 08/23/19 Unknown History metFORMIN [Glucophage] 500 mg PO BID 04/12/19 08/23/19 Unknown History carvediloL [Coreg] 3.125 mg PO BID #60 tablet 04/14/19 08/23/19 Unknown Rx Benzonatate [Tessalon Perles] 100 mg PO Q8HR PRN #20 capsule 05/30/19 08/23/19 Unknown Rx ALBUTEROL NEB's [Proventil 0.083% 2.5 mg IH TID PRN #90 neb 08/01/19 08/23/19 Unknown Rx NEBS] Albuterol Mdi (or & Nicu Only) 2 puff IH QID PRN inha 08/01/19 08/23/19 Unknown Rx [ProAir HFA Inhaler] Albuterol Mdi (or & Nicu Only) 2 puff IH QID PRN #1 pump 08/01/19 08/23/19 Unknown Rx [ProAir HFA Inhaler] Benzonatate [Tessalon Perles] 100 mg PO Q8HR PRN capsule 08/01/19 08/23/19 Unknown Rx Budesonide [Pulmicort Respules] 1 mg IH Q12HRT nebu 08/01/19 08/23/19 Unknown R x Budesonide/Formoterol Fumarate 10.2 gm IH BID #1 hfa.aer.ad 08/01/19 08/23/19 Unknown Rx [Symbicort 160-4.5 Mcg Inhaler] Furosemide [Lasix TAB] 40 mg PO QDAY #30 tab 08/01/19 08/23/19 Unknown Rx Ipratropium/Albuter (Nf) 2 puff IH QID #1 inha 08/01/19 08/23/19 Unknown Rx [Combivent Inhaler] Tiotropium [place] [Spiriva 1 puff IH DAILY #1 mist.inhal 08/01/19 08/23/19 Unknown Rx Respimat] carvediloL [Coreg] 3.125 mg PO BID tablet 08/01/19 08/23/19 Unknown Rx Nicotine [Habitrol] 14 mg TD QDAY #7 patch 08/25/19 Unknown Rx oxyCODONE /ACETAMINOPHEN [Percocet 1 tab PO Q4H PRN #14 tablet 08/25/19 Unknown Rx 5/325 mg] Amoxicillin [Trimox CAP] 500 mg PO Q8H #21 capsule 02/16/20 Unknown Rx Ibuprofen [Motrin 800 MG tab] 800 mg PO Q8HR PRN #30 tablet 02/16/20 Unknown Rx Acetaminophen/Codeine [Tylenol 1 tab PO Q8H PRN #10 tab 06/28/20 Unknown Rx /Codeine # 3 tab] Amoxicillin/Potassium Clav 1 each PO BID 10 Days #20 tablet 06/28/20 Unknown Rx [Augmentin 875-125 Tablet] predniSONE [Deltasone] 20 mg PO BID 5 Days #10 tab 06/28/20 Unknown Rx ED Physical Exam - General Limitations: No Limitations General appearance: alert, in no apparent distress - Head Head exam: Present: atraumatic, normocephalic - Eye Eye exam: Present: normal appearance. Absent: scleral icterus, conjunctival injection - Expanded ENT Exam Expanded Mouth exam: Absent: drooling, trismus Teeth exam: Present: dental caries, dental tenderness # 1 - Other (Deep dental carry noted with mild surrounding erythema and no obvious abscess; no overlying facial swelling or redness is noted) Throat exam: Negative: tonsillar erythema, tonsillomegaly - Neck Neck exam: Present: normal inspection, full ROM. Absent: tenderness, lymphaden opathy - Respiratory Respiratory exam: Absent: normal lung sounds bilaterally, respiratory distress - Cardiovascular Cardiovascular Exam: Present: regular rate, normal rhythm. Absent: systolic murmur, diastolic murmur, rubs, gallop - Back Exam Back exam: Present: normal inspection - Neurological Exam Neurological exam: Present: alert, oriented X3, normal gait - Psychiatric Psychiatric exam: Present: normal affect, normal mood - Skin Skin exam: Present: warm, dry, intact, normal color. Absent: rash, cyanosis, diaphoretic ED Course Vital Signs 06/28/20 11:25 Temperature 98.1 F Pulse Rate 82 Respiratory 18 Rate Blood Pressure 130/70 [Right] O2 Sat by Pulse 93 Oximetry ED Medical Decision Making - Medical Decision Making 59-year-old -[place] Citizen female patient with history of diabetes, COPD, and CHF presents with complaints of sinus pressure and pain x2 weeks and right upper dental pain x1 week. She rates the pain as a 10/10 in severity and denies any fever/chills/sweats. Pain is worsening. She states she has been using OTC sinus pain medication without relief of her symptoms. Patient also reports that she has not been taking her Metformin for 6 months. She states she is currently following with a primary care provider. She denies any cough, chest pain, swelling, facial swelling, or difficulty opening her jaw. Bilateral sinus tenderness to palpation noted on exam. POC glucose 117. Will treat for acute bacterial sinusitis with Augmentin which will also cover her dental carry pain. Recommend follow-up with a dental specialist within 24 to 48 hours and primary care in 3 days. Strict return precautions discussed in detail with patient who verbalizes understanding. Critical care attestation.: If time is entered above; I have spent that time in minutes in the direct care of this critically ill patient, excluding procedure time. ED Disposition Clinical Impression: Dental infection, Acute bacterial sinusitis Disposition: TO HOME OR SELFCARE Is pt being admited?: No Condition: Stable Instructions: Sinusitis, Adult, Dental Abscess, [id number] Additional Instructions: Please follow-up with a dental specialist within 24 to 48 hours Prescriptions: Amoxicillin/Potassium Clav [Augmentin 875-125 Tablet] 1 each PO BID 10 Days #20 tablet predniSONE [Deltasone] 20 mg PO BID 5 Days #10 tab Acetaminophen/Codeine [Tylenol /Codeine # 3 tab] 1 tab PO Q8H PRN #10 tab PRN Reason: Pain , Severe (7-10) Referrals: PRIMARY CARE, [Referring] - 3-5 Days
== END 2020-06-28 11:45 | disposition home or self-care (01) ==
LOC: ED 11:22
DX: J01.80 Other acute sinusitis (principal); B96.89 Other specified bacterial agents as the cause of diseases classified elsewhere; K04.7 Periapical abscess without sinus; I50.9 Heart failure, unspecified; I11.0 Hypertensive heart disease with heart failure; I25.2 Old myocardial infarction; E11.9 Type 2 diabetes mellitus without complications; M19.91 Primary osteoarthritis, unspecified site; J44.9 Chronic obstructive pulmonary disease, unspecified; Z98.890 Other specified postprocedural states; Z87.891 Personal history of nicotine dependence; Z79.1 Long term (current) use of non-steroidal anti-inflammatories (NSAID); Z79.2 Long term (current) use of antibiotics; Z79.899 Other long term (current) drug therapy; Z88.8 Allergy status to other drugs, medicaments and biological substances
CPT/HCPCS: 82962; 99282

== ENCOUNTER 2020-07-23 12:21 | Emergency (ER) | payer MEDICAID ==
--- NOTE | 2020-07-23 13:09 | XRay Report ---
CHEST 2 VIEWS INDICATION: cough, SOB. COMPARISON: 08/01/2019 FINDINGS: Support devices: None. Heart: Stable mild cardiomegaly Lungs/pleura: No acute air space or interstitial disease. No pneumothorax. Chronic linear scarring i n the left upper lobe is unchanged. Additional findings: None. IMPRESSION: No acute findings. Stable cardiomegaly. Chronic linear scarring in the left upper lobe. Signer Name: Ramu Whitfield Jr, MD Signed: 07/23/2020 1:04 PM Workstation Name: [id number]
--- NOTE | 2020-07-23 13:35 | Emergency Department Report ---
Blank Doc - Documentation Documentation: 59-year-old female that presents with SOB and cough. HX of CHF. This initial assessment/diagnostic orders/clinical plan/treatment(s) is/are subject to change based on patient's health status, clinical progression and re- assessment by fellow clinical providers in the ED. Further treatment and workup at subsequent clinical providers discretion. Patient/guardians urged not to elope from the ED as their condition may be serious if not clinically assessed and managed. Initial orders include: 1- Patient sent to MAIN ED for further evaluation and treatment 2- cardiac workup
[2020-07-23 14:20] LABS: Basophils # (Auto) 0.1 K/mm3 (0.0-0.1); Eosinophils # (Auto) 0.4 K/mm3 (0.0-0.4); Eosinophils % (Auto) 5.9 % (0.0-4.3); Hematocrit 39.9 % (30.3-42.9); Hemoglobin 13.5 gm/dl (10.1-14.3); Lymphocytes # (Auto) 1.5 K/mm3 (1.2-5.4); Lymphocytes % (Auto) 21.7 % (13.4-35.0); Mean Corpuscular HGB Conc 34 % (30-34); Mean Corpuscular Volume 90 fl (79-97); Monocytes # (Auto) 0.6 K/mm3 (0.0-0.8); Monocytes % (Auto) 8.9 % (0.0-7.3); Platelet Count 250 K/mm3 (140-440); Red Blood Count 4.45 M/mm3 (3.65-5.03); Red Cell Distribution Width 15.3 % (13.2-15.2)
[2020-07-23 14:45] LABS: Alanine Aminotransferase 7 units/L (7-56); Albumin 3.7 g/dL (3.9-5); Blood Urea Nitrogen 8 mg/dL (7-17); Calcium 8.7 mg/dL (8.4-10.2); Hemolysis Index 4
[2020-07-23 14:50] LABS: BUN/Creatinine Ratio 11
[2020-07-23] MEDS ORDERED: dexAMETHasone 20 MG/5 ML VIAL IM ONE (17:18)
[2020-07-23] MEDS ORDERED: AMOXICILLIN/K CLAV 875/125MG TAB PO ONE (17:18)
[2020-07-23] MEDS ORDERED: diphenhydrAMINE 25 MG CAP PO ONE (17:18)
[2020-07-23] MEDS ORDERED: ACETAMINOPHEN 500 MG TAB PO ONE (17:18)
--- NOTE | 2020-07-23 17:23 | Emergency Department Report ---
ED General Adult HPI - General Chief complaint: Dyspnea/Respdistress Stated complaint: SINUS SEVERE PAIN/NOSE PAIN Time Seen by Provider: 07/23/20 13:33 Source: patient Mode of arrival: Ambulatory Limitations: No Limitations - History of Present Illness Initial comments: Patient is a 59-year-old -[place]i female who presents for sinus pain and pressure for the last 2 months. This can is not consistent with triage that states shortness of breath and dyspnea. Patient denies dyspnea denies shortness of breath denies cough or wheezing. States sinus congestion and difficulty with nasal breathing. Patient denies chest pain. Symptoms are exacerbated by position or movement. Symptoms are relieved by NSAIDs. Patient states she is out of antibiotics as of 1 week ago. Was on ampicillin as prescribed by her PCP. Patient is pending ENT follow-up for chronic sinusitis. There is no diaphoresis, headache, dizziness, lightheadedness, fever or chills. Patient is alert oriented x3 ambulatory with steady gait. There is no PND or peripheral e vanessa. - Related Data Home Medications Medication Instructions Recorded Confirmed Last Taken Biotin [Biotin 10,000 rapdis] 10,000 mcg PO DAILY 04/12/19 08/23/19 Unknown Diclofenac Sodium 75 mg PO DAILY 04/12/19 08/23/19 04/12/19 07:00 Gabapentin [Neurontin] 600 mg PO BID 04/12/19 08/23/19 04/12/19 07:00 600 Losartan Potassium 50 mg PO DAILY 04/12/19 08/23/19 Unknown metFORMIN [Glucophage] 500 mg PO BID 04/12/19 08/23/19 Unknown Previous Rx's Medication Instructions Recorded Last Taken Type carvediloL [Coreg] 3.125 mg PO BID #60 tablet 04/14/19 Unknown Rx Benzonatate [Tessalon Perles] 100 mg PO Q8HR PRN #20 capsule 05/30/19 Unknown Rx ALBUTEROL NEB's [Proventil 0.083% 2.5 mg IH TID PRN #90 neb 08/01/19 Unknown Rx NEBS] Albuterol Mdi (or & Nicu Only) 2 puff IH QID PRN inha 08/01/19 Unknown Rx [ProAir HFA Inhaler] Albuterol Mdi (or & Nicu Only) 2 puff IH QID PRN #1 pump 08/01/19 Unknown Rx [ProAir HFA Inhaler] Benzonatate [Tessalon Perles] 100 mg PO Q8HR PRN capsule 08/01/19 Unknown Rx Budesonide [Pulmicort Respules] 1 mg IH Q12HRT nebu 08/01/19 Unknown Rx Budesonide/Formoterol Fumarate 10.2 gm IH BID #1 hfa.aer.ad 08/01/19 Unknown Rx [Symbicort 160-4.5 Mcg Inhaler] Furosemide [Lasix TAB] 40 mg PO QDAY #30 tab 08/01/19 Unknown Rx Ipratropium/Albuter (Nf) 2 puff IH QID #1 inha 08/01/19 Unknown Rx [Combivent Inhaler] Tiotropium Walker [Spiriva 1 puff IH DAILY #1 mist.inhal 08/01/19 Unknown Rx Respimat] carvediloL [Coreg] 3.125 mg PO BID tablet 08/01/19 Unknown Rx Nicotine [Habitrol] 14 mg TD QDAY #7 patch 08/25/19 Unknown Rx oxyCODONE /ACETAMINOPHEN [Percocet 1 tab PO Q4H PRN #14 tablet 08/25/19 Unknown Rx 5/325 mg] Amoxicillin [Trimox CAP] 500 mg PO Q8H #21 capsule 02/16/20 Unknown Rx Ibuprofen [Motrin 800 MG tab] 800 mg PO Q8HR PRN #30 tablet 02/16/20 Unknown Rx Acetaminophen/Codeine [Tylenol 1 tab PO Q8H PRN #10 tab 06/28/20 Unknown Rx /Codeine # 3 tab] Amoxicillin/Potassium Clav 1 each PO BID 10 Days #20 tablet 06/28/20 Unknown Rx [Augmentin 875-125 Tablet] predniSONE [Deltasone] 20 mg PO BID 5 Days #10 tab 06/28/20 Unknown Rx Acetaminophen [Acetaminophen TAB] 1,000 mg PO Q6HR PRN #30 tablet 07/23/20 Unknown Rx Albuterol Mdi (or & Nicu Only) 2 puff IH QID PRN #8.5 gram 07/23/20 Unknown Rx [ProAir HFA Inhaler] Amoxicillin/Potassium Clav 1 each PO BID 10 Days #20 tablet 07/23/20 Unknown Rx [Augmentin 875-125 Tablet] dexAMETHasone [Decadron] 4 mg PO Q12H 3 Days #6 tablet 07/23/20 Unknown Rx diphenhydrAMINE [Benadryl CAP] 25 mg PO Q8HR PRN #30 capsule 07/23/20 Unknown Rx Allergies Allergy/AdvReac Type Severity Reaction Status Date / Time sulfamethoxazole Allergy Hives Verified 02/16/20 15:11 [From Bactrim] trimethoprim [From Bactrim] Allergy Hives Verified 02/16/20 15:11 ED Review of Systems ROS: Stated complaint: SINUS SEVERE PAIN/NOSE PAIN Other details as noted in HPI Constitutional: malaise. denies: chills, fever Eyes: denies: eye pain, eye discharge, vision change ENT: congestion, other (sinus pain and pressure ). denies: throat pain, dental pain Respiratory: denies: cough, shortness of breath, wheezing Cardiovascular: denies: chest pain, palpitations Endocrine: no symptoms reported Gastrointestinal: denies: abdominal pain, nausea, diarrhea Genitourinary: denies: urgency, dysuria, discharge Musculoskeletal: denies: back pain, joint swelling, arthralgia Skin: denies: rash, lesions Neurological: headache (frontal sinus pain ). denies: weakness, paresthesias, vertigo Psychiatric: denies: anxiety, depression Hematological/Lymphatic: denies: easy bleeding, easy bruising ED Past Medical Hx - Past Medical History Previous Medical History?: Yes Hx Hypertension: Yes Hx Heart Attack/AMI: Yes (2004) Hx Congestive Heart Failure: Yes Hx Diabetes: Yes Hx Arthritis: Yes Hx Psychiatric Treatment: Yes (PTSD) Hx Asthma: Yes Hx COPD: Yes Hx HIV: No Additional medical history: hepatitis C, CAD, Sleep apnea, GERD. Above entered by nursing. Coronary artery disease is apparently a correct. I'm not sure about hepatitis C. The patient has a nonischemic cardiomyopathy with an EF of 35%. [place] - Surgical History Additional Surgical History: open heart surgery, left knee replacement, apoorva in right leg, surgical repair of disc in neck - Social History Smoking Status: Never Smoker Substance Use Type: None - Medications Home Medications: Home Medications Medication Instructions Recorded Confirmed Last Taken Type Biotin [Biotin 10,000 rapdis] 10,000 mcg PO DAILY 04/12/19 08/23/19 Unknown History Diclofenac Sodium 75 mg PO DAILY 04/12/19 08/23/19 04/12/19 07:00 History Gabapentin [Neurontin] 600 mg PO BID 04/12/19 08/23/19 04/12/19 07:00 History 600 Losartan Potassium 50 mg PO DAILY 04/12/19 08/23/19 Unknown History metFORMIN [Glucophage] 500 mg PO BID 04/12/19 08/23/19 Unknown History carvediloL [Coreg] 3.125 mg PO BID #60 tablet 04/14/19 08/23/19 Unknown Rx Benzonatate [Tessalon Perles] 100 mg PO Q8HR PRN #20 capsule 05/30/19 08/23/19 Unknown Rx ALBUTEROL NEB's [Proventil 0.083% 2.5 mg IH TID PRN #90 neb 08/01/19 08/23/19 Unknown Rx NEBS] Albuterol Mdi (or & Nicu Only) 2 puff IH QID PRN inha 08/01/19 08/23/19 Unknown Rx [ProAir HFA Inhaler] Albuterol Mdi (or & Nicu Only) 2 puff IH QID PRN #1 pump 08/01/19 08/23/19 Unknown Rx [ProAir HFA Inhaler] Benzonatate [Tessalon Perles] 100 mg PO Q8HR PRN capsule 08/01/19 08/23/19 Unknown Rx Budesonide [Pulmicort Respules] 1 mg IH Q12HRT nebu 08/01/19 08/23/19 Unknown Rx Budesonide/Formoterol Fumarate 10.2 gm IH BID #1 hfa.aer.ad 08/01/19 08/23/19 Unknown Rx [Symbicort 160-4.5 Mcg Inhaler] Furosemide [Lasix TAB] 40 mg PO QDAY #30 tab 08/01/19 08/23/19 Unknown Rx Ipratropium/Albuter (Nf) 2 puff IH QID #1 inha 08/01/19 08/23/19 Unknown Rx [Combivent Inhaler] Tiotropium Walker [Spiriva 1 puff IH DAILY #1 mist.inhal 08/01/19 08/23/19 Unknown Rx Respimat] carvediloL [Coreg] 3.125 mg PO BID tablet 08/01/19 08/23/19 Unknown Rx Nicotine [Habitrol] 14 mg TD QDAY #7 patch 08/25/19 Unknown Rx oxyCODONE /ACETAMINOPHEN [Percocet 1 tab PO Q4H PRN #14 tablet 08/25/19 Unknown Rx 5/325 mg] Amoxicillin [Trimox CAP] 500 mg PO Q8H #21 capsule 02/16/20 Unknown Rx Ibuprofen [Motrin 800 MG tab] 800 mg PO Q8HR PRN #30 tablet 02/16/20 Unknown Rx Acetaminophen/Codeine [Tylenol 1 tab PO Q8H PRN #10 tab 06/28/20 Unknown Rx /Codeine # 3 tab] Amoxicillin/Potassium Clav 1 each PO BID 10 Days #20 tablet 06/28/20 Unknown Rx [Augmentin 875-125 Tablet] predniSONE [Deltasone] 20 mg PO BID 5 Days #10 tab 06/28/20 Unknown Rx Acetaminophen [Acetaminophen TAB] 1,000 mg PO Q6HR PRN #30 tablet 07/23/20 Unknown Rx Albuterol Mdi (or & Nicu Only) 2 puff IH QID PRN #8.5 gram 07/23/20 Unknown Rx [ProAir HFA Inhaler] Amoxicillin/Potassium Clav 1 each PO BID 10 Days #20 tablet 07/23/20 Unknown Rx [Augmentin 875-125 Tablet] dexAMETHasone [Decadron] 4 mg PO Q12H 3 Days #6 tablet 07/23/20 Unknown Rx diphenhydrAMINE [Benadryl CAP] 25 mg PO Q8HR PRN #30 capsule 07/23/20 Unknown Rx ED Physical Exam - General Limitations: No Limitations General appearance: alert, in no apparent distress - Head Head exam: Present: atraumatic, normocephalic - Eye Eye exam: Present: PERRL, EOMI Pupils: Present: normal accommodation - ENT ENT exam: Present: mucous membranes moist, TM's normal bilaterally, normal external ear exam, other (bilat frontal and maxillary sinus pain to palpation, turbinate boggy erythem yellow nasal discharge, right nare opacified. no throat or ear pain ) - Expanded ENT Exam Expanded Ear exam: Present: normal external inspection Throat exam: Positive: other (airway patent no stridor no swelling no wheezing ). Negative: tonsillar erythema, tonsillomegaly, tonsillar exudate, R peritonsillar mass, L peritonsillar mass - Neck Neck exam: Present: normal inspection - Respiratory Respiratory exam: Present: normal lung sounds bilaterally. Absent: respiratory distress, wheezes, stridor, chest wall tenderness - Cardiovascular Cardiovascular Exam: Present: regular rate, normal rhythm, normal heart sounds. Absent: systolic murmur, diastolic murmur, rubs, gallop - GI/Abdominal GI/Abdominal exam: Present: soft, normal bowel sounds. Absent: distended, tenderness, guarding, rebound, rigid, bruit, hernia - Rectal Rectal exam: Present: deferred - Extremities Exam Extremities exam: Present: normal inspection, full ROM. Absent: tenderness - Back Exam Back exam: Present: normal inspection, full ROM. Absent: tenderness, CVA tenderness (R), CVA tenderness (L) - Neurological Exam Neurological exam: Present: alert, oriented X3, CN II-XII intact, normal gait, reflexes normal. Absent: motor sensory deficit - Expanded Neurological Exam Expanded Patient oriented to: Present: person, place, time Speech: Present: fluid speech Best Eye Response ([place]): (4) open spontaneously Best Motor Response ([place]): (6) obeys commands Best Verbal Response ([place]): (5) oriented [place] Total: 15 - Psychiatric Psychiatric exam: Present: normal affect, normal mood - Skin Skin exam: Present: warm, dry, intact, normal color. Absent: rash ED Course Vital Signs 07/23/20 12:39 Temperature 97.8 F Pulse Rate 82 Respiratory 24 Rate Blood Pressure 142/73 O2 Sat by Pulse 94 Oximetry ED Medical Decision Making - Lab Data Result diagrams: 07/23/20 13:56 07/23/20 13:56 Labs 07/23/20 07/23/20 07/23/20 13:56 13:56 13:56 WBC 6.8 RBC 4.45 Hgb 13.5 Hct 39.9 MCV 90 MCH 30 MCHC 34 RDW 15.3 H Plt Count 250 Lymph % (Auto) 21.7 [place] % (Auto) 8.9 H Eos % (Auto) 5.9 H Baso % (Auto) 1.0 Lymph # (Auto) 1.5 [place] # (Auto) 0.6 Eos # (Auto) 0.4 Baso # (Auto) 0.1 Seg Neutrophils % 62.5 Seg Neutrophils # 4.3 PT 13.1 INR 1.00 APTT 27.0 Sodium 139 Potassium 4.0 Chloride 104.8 Carbon Dioxide 25 Anion Gap 13 BUN 8 Creatinine 0.7 Estimated GFR > 60 BUN/Creatinine Ratio 11 Glucose 148 H Calcium 8.7 Total Bilirubin 0.30 AST 10 ALT 7 Alkaline Phosphatase 76 Troponin T < 0.010 NT-Pro-B Natriuret Pep Total Protein 7.3 Albumin 3.7 L Albumin/Globulin Ratio 1.0 07/23/20 13:56 WBC RBC Hgb Hct MCV MCH MCHC RDW Plt Count Lymph % (Auto) [place] % (Auto) Eos % (Auto) Baso % (Auto) Lymph # (Auto) [place] # (Auto) Eos # (Auto) Baso # (Auto) Seg Neutrophils % Seg Neutrophils # PT INR APTT Sodium Potassium Chloride Carbon Dioxide Anion Gap BUN Creatinine Estimated GFR BUN/Creatinine Ratio Glucose Calcium Total Bilirubin AST ALT Alkaline Phosphatase Troponin T NT-Pro-B Natriuret Pep 95.77 Total Protein Albumin Albumin/Globulin Ratio - EKG Data EKG shows normal: sinus rhythm Rate: normal - EKG Data When compared to previous EKG there are: no significant change Interpretation: normal EKG ekg nsr no ST Elevated [place], interp by ed attending. 07/23/20 18:29 - Radiology Data Radiology results: report reviewed, image reviewed Findings Reporting MD: Ramu Whitfield Dictation Time: July 23, 2020 12:04 Public Health Representative: Not available Manager [employer] Date: CHEST 2 VIEWS INDICATION: cough, SOB. COMPARISON: 08/01/2019 FINDINGS: Support devices: None. Heart: Stable mild cardiomegaly Lungs/pleura: No acute air space or interstitial disease. No pneumothorax. Chronic linear scarring in the left upper lobe is unchanged. Additional findings: None. IMPRESSION: No acute findings. Stable cardiomegaly. Chronic linear scarring in the left upper lobe. Signer Name: Ramu Whitfield Jr, MD Signed: 07/23/2020 12:04 PM Workstation Name: [id number] - Medical Decision Making cxr: no opacities no infiltrates, stable cardiomegally chronic for this patient, EKG NSR no ST Elevated [place], this is sinusitis acute on chronic , plan decadron, benadry, tyelnol, augmentin follow up with ENT as scheduled, pt verbalized agree ment and understanding of discharge plan. pt for dc to home in stable condition at this time. , labs noted above , trop: <0.01 x 1, heart score is 0 Critical care attestation.: If time is entered above; I have spent that time in minutes in the direct care of this critically ill patient, excluding procedure time. ED Disposition Clinical Impression: Acute bacterial sinusitis Disposition: DC-01 TO HOME OR SELFCARE Is pt being admited?: No Does the pt Need Aspirin: No Condition: Stable Instructions: Sinusitis, Adult Prescriptions: Acetaminophen [Acetaminophen TAB] 1,000 mg PO Q6HR PRN #30 tablet PRN Reason: pain fever Amoxicillin/Potassium Clav [Augmentin 875-125 Tablet] 1 each PO BID 10 Days #20 tablet diphenhydrAMINE [Benadryl CAP] 25 mg PO Q8HR PRN #30 capsule PRN Reason: sinus congestion dexAMETHasone [Decadron] 4 mg PO Q12H 3 Days #6 tablet Albuterol Mdi (or & Nicu Only) [ProAir HFA Inhaler] 2 puff IH QID PRN #8.5 gram PRN Reason: Shortness Of Breath Referrals: [facility] [Provider Group] - 3-5 Days
[2020-07-23 19:30] VITALS: BP 126/76
== END 2020-07-23 18:50 | disposition home or self-care (01) ==
LOC: ED 12:21
DX: J01.90 Acute sinusitis, unspecified (principal); B96.89 Other specified bacterial agents as the cause of diseases classified elsewhere; I11.0 Hypertensive heart disease with heart failure; I50.9 Heart failure, unspecified; I25.2 Old myocardial infarction; E11.9 Type 2 diabetes mellitus without complications; M19.90 Unspecified osteoarthritis, unspecified site; J44.9 Chronic obstructive pulmonary disease, unspecified; Z98.890 Other specified postprocedural states; Z79.899 Other long term (current) drug therapy; Z88.2 Allergy status to sulfonamides; Z88.6 Allergy status to analgesic agent
CPT/HCPCS: 36415; 71046; 80053; 83880; 84484; 85025; 85610; 85730; 93005; 96372; 99284; J1100

== ENCOUNTER 2020-08-29 14:16 | Emergency (ER) | payer MEDICAID ==
[2020-08-29 14:53] LABS: Basophils % (Auto) 0.4 % (0.0-1.8); Eosinophils # (Auto) 0.5 K/mm3 (0.0-0.4); Hematocrit 43.4 % (30.3-42.9); Hemoglobin 14.5 gm/dl (10.1-14.3); Lymphocytes # (Auto) 2.4 K/mm3 (1.2-5.4); Lymphocytes % (Auto) 35.2 % (13.4-35.0); Mean Corpuscular HGB Conc 34 % (30-34); Mean Corpuscular Volume 89 fl (79-97); Monocytes # (Auto) 0.6 K/mm3 (0.0-0.8); Monocytes % (Auto) 9.6 % (0.0-7.3); Platelet Count 293 K/mm3 (140-440); Red Blood Count 4.86 M/mm3 (3.65-5.03); Red Cell Distribution Width 14.9 % (13.2-15.2)
--- NOTE | 2020-08-29 15:01 | XRay Report ---
CHEST 2 VIEWS INDICATION / CLINICAL INFORMATION: S OB. COMPARISON: 07/23/2020 FINDINGS: SUPPORT DEVICES: None. HEART / MEDIASTINUM: No significant abnormality. LUNGS / PLEURA: Lungs spine with density in the left lung appears similar to prior examination. No pn eumothorax. ADDITIONAL FINDINGS: No significant additional findings. IMPRESSION: 1. No significant change in left lung opacity /density since prior exam. Signer Name: Azar Hamm MD Signed: 08/29/2020 2:56 PM Workstation Name: [id number]
[2020-08-29 15:13] LABS: Alanine Aminotransferase 9 units/L (7-56); Albumin 4.1 g/dL (3.9-5); BUN/Creatinine Ratio 19; Blood Urea Nitrogen 15 mg/dL (7-17); Calcium 9.1 mg/dL (8.4-10.2); Hemolysis Index 12
[2020-08-29] MEDS ORDERED: methylPREDNISolone Sod Succinate 125 MG/2 ML INJ IV ONE (16:33)
[2020-08-29] MEDS ORDERED: IPRATROPIUM 0.02% NEBU 2.5 ML IH ONE (16:33)
[2020-08-29] MEDS ORDERED: ALBUTEROL 2.5 MG/3 ML NEBU IH ONE (16:33)
--- NOTE | 2020-08-29 16:54 | Emergency Department Report ---
HPI - General Chief Complaint: Dyspnea/Respdistress Time Seen by Provider: 08/29/20 16:19 - HPI HPI: This is a 60-year-old -[place] female presents to the emergency department with a complaint of shortness of breath, wheezing, and a mixed dry and productive cough. The patient says that she was out of her diuretics for about 3 weeks but had them refilled this past Thursday. Overall her symptoms have been going on for the past few weeks but worsened over the past few days. She has a past medical history of COPD not oxygen dependent, asthma, CHF, arthritis, diabetes, hypertension, sleep apnea. Her primary care physician is a Dr. Morris. Her international sales manager is Dr. Mancera and kettle skimmer is Dr. Bae. No recent travel or sick contacts at home. She denies any chest pain, lower extremity swelling, fever, back pain, nausea, vomiting or diaphoresis. ED Past Medical Hx - Past Medical History Previous Medical History?: Yes Hx Hypertension: Yes Hx Heart Attack/AMI: Yes (2004) Hx Congestive Heart Failure: Yes Hx Diabetes: Yes Hx Arthritis: Yes Hx Psychiatric Treatment: Yes (PTSD) Hx Asthma: Yes Hx COPD: Yes Hx HIV: No Additional medical history: hepatitis C, CAD, Sleep apnea, GERD. Above entered by nursing. Coronary artery disease is apparently a correct. I'm not sure about hepatitis C. The patient has a nonischemic cardiomyopathy with an EF of 35%. [place] - Surgical History Additional Surgical History: open heart surgery, left knee replacement, apoorva in right leg, surgical repair of disc in neck - Social History Smoking Status: Never Smoker Substance Use Type: None - Medications Home Medications: Home Medications Medication Instructions Recorded Confirmed Last Taken Type Biotin [Biotin 10,000 rapdis] 10,000 mcg PO DAILY 04/12/19 08/23/19 Unknown History Diclofenac Sodium 75 mg PO DAILY 04/12/19 08/23/19 04/12/19 07:00 History Gabapentin [Neurontin] 600 mg PO BID 04/12/19 08/23/19 04/12/19 07:00 History 600 Losartan Potassium 50 mg PO DAILY 04/12/19 08/23/19 Unknown History metFORMIN [Glucophage] 500 mg PO BID 04/12/19 08/23/19 Unknown History carvediloL [Coreg] 3.125 mg PO BID #60 tablet 04/14/19 08/23/19 Unknown Rx Benzonatate [Tessalon Perles] 100 mg PO Q8HR PRN #20 capsule 05/30/19 08/23/19 Unknown Rx ALBUTEROL NEB's [Proventil 0.083% 2.5 mg IH TID PRN #90 neb 08/01/19 08/23/19 Unknown Rx NEBS] Albuterol Mdi (or & Nicu Only) 2 puff IH QID PRN inha 08/01/19 08/23/19 Unknown Rx [ProAir HFA Inhaler] Albuterol Mdi (or & Nicu Only) 2 puff IH QID PRN #1 pump 08/01/19 08/23/19 Unknown Rx [ProAir HFA Inhaler] Benzonatate [Tessalon Perles] 100 mg PO Q8HR PRN capsule 08/01/19 08/23/19 Unknown Rx Budesonide [Pulmicort Respules] 1 mg IH Q12HRT nebu 08/01/19 08/23/19 Unknown Rx Furosemide [Lasix TAB] 40 mg PO QDAY #30 tab 08/01/19 08/23/19 Unknown Rx Ipratropium/Albuter (Nf) 2 puff IH QID #1 inha 08/01/19 08/23/19 Unknown Rx [Combivent Inhaler] Tiotropium [place] [Spiriva 1 puff IH DAILY #1 mist.inhal 08/01/19 08/23/19 Unknown Rx Respimat] carvediloL [Coreg] 3.125 mg PO BID tablet 08/01/19 08/23/19 Unknown Rx Nicotine [Habitrol] 14 mg TD QDAY #7 patch 08/25/19 Unknown Rx oxyCODONE /ACETAMINOPHEN [Percocet 1 tab PO Q4H PRN #14 tablet 08/25/19 Unknown Rx 5/325 mg] Amoxicillin [Trimox CAP] 500 mg PO Q8H #21 capsule 02/16/20 Unknown Rx Ibuprofen [Motrin 800 MG tab] 800 mg PO Q8HR PRN #30 tablet 02/16/20 Unknown Rx Acetaminophen/Codeine [Tylenol 1 tab PO Q8H PRN #10 tab 06/28/20 Unknown Rx /Codeine # 3 tab] Amoxicillin/Potassium Clav 1 each PO BID 10 Days #20 tablet 06/28/20 Unknown Rx [Augmentin 875-125 Tablet] Acetaminophen [Acetaminophen TAB] 1,000 mg PO Q6HR PRN #30 tablet 07/23/20 Unknown Rx Albuterol Mdi (or & Nicu Only) 2 puff IH QID PRN #8.5 gram 07/23/20 Unknown Rx [ProAir HFA Inhaler] Amoxicillin/Potassium Clav 1 each PO BID 10 Days #20 tablet 07/23/20 Unknown Rx [Augmentin 875-125 Tablet] dexAMETHasone [Decadron] 4 mg PO Q12H 3 Days #6 tablet 07/23/20 Unknown Rx diphenhydrAMINE [Benadryl CAP] 25 mg PO Q8HR PRN #30 capsule 07/23/20 Unknown Rx Budesonide/Formoterol Fumarate 10.2 gm IH BID #1 hfa.aer.ad 08/29/20 Unknown Rx [Symbicort 160-4.5 Mcg Inhaler] guaiFENesin/CODEINE [Robitussin AC] 5 ml PO Q6H PRN #100 ml 08/29/20 Unknown Rx predniSONE [Deltasone] 20 mg PO BID 5 Days #10 tab 08/29/20 Unknown Rx ED Review of Systems ROS: Stated complaint: YOSSI Other details as noted in HPI Comment: All other systems reviewed and negative Constitutional: denies: chills, fever Eyes: denies: eye pain, vision change ENT: denies: ear pain, throat pain Respiratory: cough, shortness of breath, wheezing Cardiovascular: denies: chest pain, palpitations, edema Gastrointestinal: denies: abdominal pain, vomiting Genitourinary: denies: dysuria, discharge Musculoskeletal: denies: back pain, arthralgia Skin: denies: rash, lesions Neurological: denies: headache, weakness Physical Exam - Physical Exam Vital Signs: Vital Signs 08/29/20 08/29/20 08/29/20 14:23 16:30 16:33 Temperature 97.8 F Pulse Rate 86 84 Respiratory 22 26 H 20 Rate Blood Pressure 106/42 O2 Sat by Pulse 96 97 Oximetry Physical Exam: GENERAL: The patient is well-developed well-nourished. HENT: Normocephalic. Atraumatic. Patient has moist mucous membranes. EYES: Extraocular motions are intact. NECK: Supple. Trachea is midline. CHEST/LUNGS: Mild to moderate wheezing throughout the chest. No tachypnea or accessory muscle use. There is no respiratory distress noted. HEART/CARDIOVASCULAR: Regular. There is no tachycardia. There is no murmur. ABDOMEN: Abdomen is soft, nontender. Patient has normal bowel sounds. SKIN: Skin is warm and dry. NEURO: The patient is awake, alert, and oriented. The patient is cooperative. The patient has no focal neurologic deficits. Normal speech. MUSCULOSKELETAL: There is no tenderness or deformity. There is no limitation range of motion. ED Course Vital Signs 08/29/20 08/29/20 08/29/20 14:23 16:30 16:33 Temperature 97.8 F Pulse Rate 86 84 Respiratory 22 26 H 20 Rate Blood Pressure 106/42 O2 Sat by Pulse 96 97 Oximetry ED Medical Decision Making - Lab Data Result diagrams: 08/29/20 14:37 08/29/20 14:37 Lab Results 08/29/20 08/29/20 Range/Units 14:37 14:37 WBC 6.7 (4.5-11.0) K/mm3 RBC 4.86 (3.65-5.03) M/mm3 Hgb 14.5 H (10.1-14.3) gm/dl Hct 43.4 H (30.3-42.9) % MCV 89 (79-97) fl MCH 30 (28-32) pg MCHC 34 (30-34) % RDW 14.9 (13.2-15.2) % Plt Count 293 (140-440) K/mm3 Lymph % (Auto) 35.2 H (13.4-35.0) % Stephenson % (Auto) 9.6 H (0.0-7.3) % Eos % (Auto) 7.0 H (0.0-4.3) % Baso % (Auto) 0.4 (0.0-1.8) % Lymph # (Auto) 2.4 (1.2-5.4) K/mm3 Stephenson # (Auto) 0.6 (0.0-0.8) K/mm3 Eos # (Auto) 0.5 H (0.0-0.4) K/mm3 Baso # (Auto) 0.0 (0.0-0.1) K/mm3 Seg Neutrophils % 47.8 (40.0-70.0) % Seg Neutrophils # 3.2 (1.8-7.7) K/mm3 Sodium 137 (137-145) mmol/L Potassium 3.9 (3.6-5.0) mmol/L Chloride 99.7 (98-107) mmol/L Carbon Dioxide 25 (22-30) mmol/L Anion Gap 16 mmol/L BUN 15 (7-17) mg/dL Creatinine 0.8 (0.6-1.2) mg/dL Estimated GFR > 60 ml/min BUN/Creatinine Ratio 19 % Glucose 99 (65-100) mg/dL Calcium 9.1 (8.4-10.2) mg/dL Magnesium 2.00 (1.7-2.3) mg/dL Total Bilirubin 0.30 (0.1-1.2) mg/dL AST 13 (5-40) units/L ALT 9 (7-56) units/L Alkaline Phosphatase 70 (35-129) units/L NT-Pro-B Natriuret Pep 16.08 (0-900) pg/mL Total Protein 6.8 (6.3-8.2) g/dL Albumin 4.1 (3.9-5) g/dL Albumin/Globulin Ratio 1.5 % - EKG Data -: EKG Interpreted by Me EKG shows normal: sinus rhythm, axis, intervals, QRS complexes, ST-T waves Rate: normal - EKG Data When compared to previous EKG there are: no significant change Interpretation: unchanged when compared t (07/23/20) - Radiology Data Radiology results: image reviewed interpreted by me: Chest x-ray does not show any pneumonia, pleural effusions or pneumothorax. No osseous abnormalities. - Medical Decision Making This patient presents to the emergency department with a complaint of some wheezing, coughing and shortness of breath. At first the patient thought it was due to the fact that she had been out of her diuretics for the past couple of weeks, but she did refill them on Thursday, 2 days ago. On examination the patient has some wheezing/bronchospasm throughout the chest, but she does not have any tachypnea, accessory muscle use, or any signs of any respiratory or acute distress. Chest x-ray does not show any pneumonia, pleural effusions, pneumothorax, focal consolidation, or any other acute process. The patient's labs have been unremarkable including CBC, metabolic panel, low proBNP. Patient was given a dose of Solu-Medrol and a breathing treatment with both albuterol and Atrovent. Upon reevaluation the wheezing has decreased and the patient feels improved. Vital signs have been reassuring throughout her ED course including being afebrile and no hypoxia. The patient does not appear to have any recent risk factors for thromboembolic disease and is low on the Wells score criteria. She has good outpatient follow-up with primary care, pulmonology and cardiology. For all these reasons the patient appears safe for discharge home at this time. She says that she only needs a refill of her Symbicort and was also given a prescription for a course of steroids. She will return to the emergency department with any worsening of her symptoms or with any acute distress. Critical Care Time: No Critical care attestation.: If time is entered above; I have spent that time in minutes in the direct care of this critically ill patient, excluding procedure time. ED Disposition Clinical Impression: COPD exacerbation, Bronchospasm Disposition: TO HOME OR SELFCARE Is pt being admited?: No Condition: Stable Instructions: Chronic Obstructive Pulmonary Disease Exacerbation, Chronic Obstructive Pulmonary Disease (ED) Additional Instructions: Please follow-up with your primary care physician and international sales manager in the next few days. You have been prescribed a medication that is sedating and therefore should not be taken prior to driving, working, and responsible for children and in no way should be mixed with alcohol of any quantity. Return to the emergency department with any worsening of your symptoms, new or concerning symptoms not addressed during this current emergency department visit, or with any acute distress. Prescriptions: predniSONE [Deltasone] 20 mg PO BID 5 Days #10 tab guaiFENesin/CODEINE [Robitussin AC] 5 ml PO Q6H PRN #100 ml PRN Reason: Cough Budesonide/Formoterol Fumarate [Symbicort 160-4.5 Mcg Inhaler] 10.2 gm IH BID #1 hfa.aer.ad Referrals: EVERETT MAHAN MD [Staff Physician] - 2-3 Days PCP, Your [Other] - 2-3 Days Time of Disposition: 17:39
[2020-08-29 17:57] VITALS: BP 109/59
== END 2020-08-29 18:16 | disposition home or self-care (01) ==
LOC: ED 14:16
DX: J44.1 Chronic obstructive pulmonary disease with (acute) exacerbation (principal); J98.01 Acute bronchospasm; I11.0 Hypertensive heart disease with heart failure; I50.9 Heart failure, unspecified; E11.9 Type 2 diabetes mellitus without complications; M19.91 Primary osteoarthritis, unspecified site; Z98.890 Other specified postprocedural states; Z79.84 Long term (current) use of oral hypoglycemic drugs; Z79.1 Long term (current) use of non-steroidal anti-inflammatories (NSAID); Z79.2 Long term (current) use of antibiotics; Z79.899 Other long term (current) drug therapy; Z88.8 Allergy status to other drugs, medicaments and biological substances
CPT/HCPCS: 36415; 71046; 80053; 83735; 83880; 85025; 93005; 94640; 96374; 99284; J2930; 94644

== ENCOUNTER 2021-07-15 13:08 | Emergency (ER) | payer MEDICAID ==
[2021-07-15] MEDS ORDERED: HYDROcodone/ACETAMINOPHEN 5-325 MG TAB PO ONE (14:22)
--- NOTE | 2021-07-15 15:26 | XRay Report ---
LEFT SCAPULA, 3 VIEWS INDICATION / CLINICAL INFORMATION: scapula pain after fall. COMPARISON: None available. FINDINGS: Multiple views of the left scapula do not demonstrate any suggestion for scapular fracture. Mild to m oderate degenerative changes are present throughout the shoulder. Visualized portions of the left ribs are grossly intact. IMPRESSION: No evidence of scapular fracture. Signer Name: Carmelina Ta MD Signed: 07/15/2021 3:22 PM Workstation Name: [id number]
--- NOTE | 2021-07-15 15:34 | Emergency Department Report ---
ED Fall HPI - General Chief Complaint: Fall Stated Complaint: FALL, HEAD & SHOULDER PAIN Time Seen by Provider: 07/15/21 14:11 Source: patient Mode of arrival: Ambulatory - History of Present Illness Initial Comments: Patient is a 60-year-old female presents emergency room complaints of a trip and fall that occurred 2 days ago. She states that she tripped over a rug. She reports most of her pain is in her left scapula and she also has a headache. She states her pain is worse with movement of her left arm. She denies any loss of consciousness, vision changes, numbness, weakness, bowel or bladder incontinence, being on any anticoagulation. Allergy to Bactrim. - Related Data Home Medications Medication Instructions Recorded Confirmed Last Taken Biotin [Biotin 10,000 rapdis] 10,000 mcg PO DAILY 04/12/19 08/23/19 Unknown Diclofenac Sodium 75 mg PO DAILY 04/12/19 08/23/19 04/12/19 07:00 Gabapentin [Neurontin] 600 mg PO BID 04/12/19 08/23/19 04/12/19 07:00 600 Losartan Potassium 50 mg PO DAILY 04/12/19 08/23/19 Unknown metFORMIN [Glucophage] 500 mg PO BID 04/12/19 08/23/19 Unknown Previous Rx's Medication Instructions Recorded Last Taken Type carvediloL [Coreg] 3.125 mg PO BID #60 tablet 04/14/19 Unknown Rx Benzonatate [Tessalon Perles] 100 mg PO Q8HR PRN #20 capsule 05/30/19 Unknown Rx ALBUTEROL NEB's [Proventil 0.083% 2.5 mg IH TID PRN #90 neb 08/01/19 Unknown Rx NEBS] Albuterol Mdi (or & Nicu Only) 2 puff IH QID PRN inha 08/01/19 Unknown Rx [ProAir HFA Inhaler] Albuterol Mdi (or & Nicu Only) 2 puff IH QID PRN #1 pump 08/01/19 Unknown Rx [ProAir HFA Inhaler] Benzonatate [Tessalon Perles] 100 mg PO Q8HR PRN capsule 08/01/19 Unknown Rx Budesonide [Pulmicort Respules] 1 mg IH Q12HRT nebu 08/01/19 Unknown Rx Furosemide [Lasix TAB] 40 mg PO QDAY #30 tab 08/01/19 Unknown Rx Ipratropium/Albuter (Nf) 2 puff IH QID #1 inha 08/01/19 Unknown Rx [Combivent Inhaler] Tiotropium [place] [Spiriva 1 puff IH DAILY #1 mist.inhal 08/01/19 Unknown Rx Respimat] carvediloL [Coreg] 3.125 mg PO BID tablet 08/01/19 Unknown Rx Nicotine [Habitrol] 14 mg TD QDAY #7 patch 08/25/19 Unknown Rx oxyCODONE /ACETAMINOPHEN [Percocet 1 tab PO Q4H PRN #14 tablet 08/25/19 Unknown Rx 5/325 mg] Amoxicillin [Trimox CAP] 500 mg PO Q8H #21 capsule 02/16/20 Unknown Rx Ibuprofen [Motrin 800 MG tab] 800 mg PO Q8HR PRN #30 tablet 02/16/20 Unknown Rx Acetaminophen/Codeine [Tylenol 1 tab PO Q8H PRN #10 tab 06/28/20 Unknown Rx /Codeine # 3 tab] Amoxicillin/Potassium Clav 1 each PO BID 10 Days #20 tablet 06/28/20 Unknown Rx [Augmentin 875-125 Tablet] Acetaminophen [Acetaminophen TAB] 1,000 mg PO Q6HR PRN #30 tablet 07/23/20 Unknown Rx Albuterol Mdi (or & Nicu Only) 2 puff IH QID PRN #8.5 gram 07/23/20 Unknown Rx [ProAir HFA Inhaler] Amoxicillin/Potassium Clav 1 each PO BID 10 Days #20 tablet 07/23/20 Unknown Rx [Augmentin 875-125 Tablet] dexAMETHasone [Decadron] 4 mg PO Q12H 3 Days #6 tablet 07/23/20 Unknown Rx diphenhydrAMINE [Benadryl CAP] 25 mg PO Q8HR PRN #30 capsule 07/23/20 Unknown Rx Budesonide/Formoterol Fumarate 10.2 gm IH BID #1 hfa.aer.ad 08/29/20 Unknown Rx [Symbicort 160-4.5 Mcg Inhaler] guaiFENesin/CODEINE [Robitussin AC] 5 ml PO Q6H PRN #100 ml 08/29/20 Unknown Rx predniSONE [Deltasone] 20 mg PO BID 5 Days #10 tab 08/29/20 Unknown Rx Meloxicam [Mobic] 7.5 mg PO QDAY #10 tablet 07/15/21 Unknown Rx methOCARBAMOL [Robaxin TAB] 500 mg PO BID PRN #20 tab 07/15/21 Unknown Rx Allergies Allergy/AdvReac Type Severity Reaction Status Date / Time sulfamethoxazole Allergy Hives Verified 02/16/20 15:11 [From Bactrim] trimethoprim [From Bactrim] Allergy Hives Verified 02/16/20 15:11 ED Review of Systems ROS: Stated complaint: FALL, HEAD & SHOULDER PAIN Other details as noted in HPI Comment: All other systems reviewed and negative ED Past Medical Hx - Past Medical History Hx Hypertension: Yes Hx Heart Attack/AMI: Yes (2004) Hx Congestive Heart Failure: Yes Hx Diabetes: Yes Hx Arthritis: Yes Hx Psychiatric Treatment: Yes (PTSD) Hx Asthma: Yes Hx COPD: Yes Hx HIV: No Additional medical history: hepatitis C, CAD, Sleep apnea, GERD. Above entered by nursing. Coronary artery disease is apparently a correct. I'm not sure about hepatitis C. The patient has a nonischemic cardiomyopathy with an EF of 35%. [place] - Surgical History Additional Surgical History: open heart surgery, left knee replacement, apoorva in right leg, surgical repair of disc in neck - Social History Smoking Status: Never Smoker Substance Use Type: None - Medications Home Medications: Home Medications Medication Instructions Recorded Confirmed Last Taken Type Biotin [Biotin 10,000 rapdis] 10,000 mcg PO DAILY 04/12/19 08/23/19 Unknown History Diclofenac Sodium 75 mg PO DAILY 04/12/19 08/23/19 04/12/19 07:00 History Gabapentin [Neurontin] 600 mg PO BID 04/12/19 08/23/19 04/12/19 07:00 History 600 Losartan Potassium 50 mg PO DAILY 04/12/19 08/23/19 Unknown History metFORMIN [Glucophage] 500 mg PO BID 04/12/19 08/23/19 Unknown History carvediloL [Coreg] 3.125 mg PO BID #60 tablet 04/14/19 08/23/19 Unknown Rx Benzonatate [Tessalon Perles] 100 mg PO Q8HR PRN #20 capsule 05/30/19 08/23/19 Unknown Rx ALBUTEROL NEB's [Proventil 0.083% 2.5 mg IH TID PRN #90 neb 08/01/19 08/23/19 Unknown Rx NEBS] Albuterol Mdi (or & Nicu Only) 2 puff IH QID PRN inha 08/01/19 08/23/19 Unknown Rx [ProAir HFA Inhaler] Albuterol Mdi (or & Nicu Only) 2 puff IH QID PRN #1 pump 08/01/19 08/23/19 Unknown Rx [ProAir HFA Inhaler] Benzonatate [Tessalon Perles] 100 mg PO Q8HR PRN capsule 08/01/19 08/23/19 Unknown Rx Budesonide [Pulmicort Respules] 1 mg IH Q12HRT nebu 08/01/19 08/23/19 Unknown Rx Furosemide [Lasix TAB] 40 mg PO QDAY #30 tab 08/01/19 08/23/19 Unknown Rx Ipratropium/Albuter (Nf) 2 puff IH QID #1 inha 08/01/19 08/23/19 Unknown Rx [Combivent Inhaler] Tiotropium [place] [Spiriva 1 puff IH DAILY #1 mist.inhal 08/01/19 08/23/19 Unknown Rx Respimat] carvediloL [Coreg] 3.125 mg PO BID tablet 08/01/19 08/23/19 Unknown Rx Nicotine [Habitrol] 14 mg TD QDAY #7 patch 08/25/19 Unknown Rx oxyCODONE /ACETAMINOPHEN [Percocet 1 tab PO Q4H PRN #14 tablet 08/25/19 Unknown Rx 5/325 mg] Amoxicillin [Trimox CAP] 500 mg PO Q8H #21 capsule 02/16/20 Unknown Rx Ibuprofen [Motrin 800 MG tab] 800 mg PO Q8HR PRN #30 tablet 02/16/20 Unknown Rx Acetaminophen/Codeine [Tylenol 1 tab PO Q8H PRN #10 tab 06/28/20 Unknown Rx /Codeine # 3 tab] Amoxicillin/Potassium Clav 1 each PO BID 10 Days #20 tablet 06/28/20 Unknown Rx [Augmentin 875-125 Tablet] Acetaminophen [Acetaminophen TAB] 1,000 mg PO Q6HR PRN #30 tablet 07/23/20 Unknown Rx Albuterol Mdi (or & Nicu Only) 2 puff IH QID PRN #8.5 gram 12/28/20 Unknown Rx [ProAir HFA Inhaler] Amoxicillin/Potassium Clav 1 each PO BID 10 Days #20 tablet 07/23/20 Unknown Rx [Augmentin 875-125 Tablet] dexAMETHasone [Decadron] 4 mg PO Q12H 3 Days #6 tablet 07/23/20 Unknown Rx diphenhydrAMINE [Benadryl CAP] 25 mg PO Q8HR PRN #30 capsule 07/23/20 Unknown Rx Budesonide/Formoterol Fumarate 10.2 gm IH BID #1 hfa.aer.ad 08/29/20 Unknown Rx [Symbicort 160-4.5 Mcg Inhaler] guaiFENesin/CODEINE [Robitussin AC] 5 ml PO Q6H PRN #100 ml 08/29/20 Unknown Rx predniSONE [Deltasone] 20 mg PO BID 5 Days #10 tab 08/29/20 Unknown Rx Meloxicam [Mobic] 7.5 mg PO QDAY #10 tablet 07/15/21 Unknown Rx methOCARBAMOL [Robaxin TAB] 500 mg PO BID PRN #20 tab 07/15/21 Unknown Rx ED Physical Exam - General Limitations: No Limitations General appearance: alert, in no apparent distress - Head Head exam: Present: atraumatic, normocephalic - Eye Eye exam: Present: normal appearance - ENT ENT exam: Present: mucous membranes moist - Neck Neck exam: Present: normal inspection, full ROM. Absent: tenderness, meningismus - Respiratory Respiratory exam: Present: normal lung sounds bilaterally, other (no rib ttp). Absent: respiratory distress, wheezes, rales, rhonchi, stridor, chest wall te nderness, accessory muscle use, decreased breath sounds, prolonged expiratory - Cardiovascular Cardiovascular Exam: Present: regular rate, normal rhythm, normal heart sounds. Absent: systolic murmur, diastolic murmur, rubs, gallop - Extremities Exam Extremities exam: Present: other (ttp to the left posterior scapula, no winging of the scapula, no deformity, no edema, no ecchymosis, pt pain worsens with lifting the left arm above the head, no bony ttp of the LUE) - Back Exam Back exam: Present: normal inspection, full ROM. Absent: paraspinal tenderness, vertebral tenderness - Neurological Exam Neurological exam: Present: alert, oriented X3, CN II-XII intact, normal gait. Absent: motor sensory deficit - Psychiatric Psychiatric exam: Present: normal affect, normal mood - Skin Skin exam: Present: warm, dry, intact ED Course Vital Signs 07/15/21 07/15/21 07/15/21 14:14 15:05 15:56 Temperature 98.2 F Pulse Rate 76 72 Respiratory 18 12 12 Rate Blood Pressure 144/81 158/82 [Left] O2 Sat by Pulse 100 100 Oximetry ED Medical Decision Making - Radiology Data Radiology results: report reviewed Ordering Physician: MEAGHAN HAM Date of Service: 07/15/21 Procedure(s): XR scapula LT Accession Number(s): [id number] cc: MEAGHAN HAM Fluoro Time In Minutes: LEFT SCAPULA, 3 VIEWS INDICATION / CLINICAL INFORMATION: scapula pain after fall. COMPARISON: None available. FINDINGS: Multiple views of the left scapula do not demonstrate any suggestion for scapular fracture. Mild to moderate degenerative changes are present throughout the shoulder. Visualized portions of the left ribs are grossly intact. IMPRESSION: No evidence of scapular fracture. Signer Name: Carmelina Ta MD Signed: 07/15/2021 3:22 PM Workstation Name: [id number] Transcribed By: JR Dictated By: Carmelina Ta MD Electronically Authenticated By: Carmelina Ta MD Signed Date/Time: 07/15/211521 DD/ 20 TD/TT: - Medical Decision Making Patient is a 60-year-old female presents emergency room complaints of a trip and fall that occurred 2 days ago. She states that she tripped over a rug. She reports most of her pain is in her left scapula and she also has a headache. She states her pain is worse with movement of her left arm. She denies any loss of consciousness, vision changes, numbness, weakness, bowel or bladder incontinence, being on any anticoagulation. Allergy to Bactrim. Vitals are stable. On exam:ttp to the left posterior scapula, no winging of the scapula, no deformity, no edema, no ecchymosis, pt pain worsens with lifting the left arm above the head, no bony ttp of the LUE, no rib tenderness outpatient, no midline paraspinal or C-spine, T-spine, L-spine tender palpation, no step-offs, no deformities. X-ray left scapula IMPRESSION: No evidence of scapular fractu re. Patient given medication on the emergency department with improvement of her symptoms. Patient given prescription for medications. Advised patient Please take medication as prescribed as needed. May use ice pack, heating pad, rest, epsom salt bath. Follow-up with your primary care doctor. Follow-up with orthopedic doctor if symptoms are improving. Return to emergency room for any new or worsening symptoms. Critical care attestation.: If time is entered above; I have spent that time in minutes in the direct care of this critically ill patient, excluding procedure time. ED Disposition Clinical Impression: Pain in scapula Fall Qualifiers: Encounter type: initial encounter Qualified Code(s): W19.XXXA - Unspecified fall, initial encounter Headache Qualifiers: Headache type: unspecified Headache chronicity pattern: acute headache Intractability: not intractable Qualified Code(s): R51.9 - Headache, unspecified Disposition: 01 HOME / SELF CARE / HOMELESS Is pt being admited?: No Does the pt Need Aspirin: No Condition: Stable Instructions: Musculoskeletal Pain Additional Instructions: Please take medication as prescribed as needed. May use ice pack, heating pad, rest, epsom salt bath. Follow-up with your primary care doctor. Follow-up with orthopedic doctor if symptoms are improving. Return to emergency room for any new or worsening symptoms. Prescriptions: Meloxicam [Mobic] 7.5 mg PO QDAY #10 tablet methOCARBAMOL [Robaxin TAB] 500 mg PO BID PRN #20 tab PRN Reason: muscle spasm/pain Referrals: LORELEI SHEPHERD MD [Primary Care Provider] - 3-5 Days WILMAN WATT MD [Staff Physician] - 3-5 Days Time of Disposition: 15:34 Print Language: ARABIC
[2021-07-15 15:57] VITALS: BP 158/82
== END 2021-07-15 15:57 | disposition home or self-care (01) ==
LOC: ED 13:08
DX: M25.512 Pain in left shoulder (principal); R51.9 Headache, unspecified; W01.0XXA Fall on same level from slipping, tripping and stumbling without subsequent striking against object, initial encounter; Y93.89 Activity, other specified; Y92.89 Other specified places as the place of occurrence of the external cause; Y99.8 Other external cause status; I10 Essential (primary) hypertension; E11.9 Type 2 diabetes mellitus without complications; J45.909 Unspecified asthma, uncomplicated; Z88.2 Allergy status to sulfonamides
CPT/HCPCS: 99283

== ENCOUNTER → 2021-09-03 | Outpatient (CLI) | payer MEDICAID | END | disposition home or self-care (01) | LOC: SLR 11:00 | PROVIDERS: ATTEND Internal Medicine | DX: G47.30 Sleep apnea, unspecified (principal) | CPT/HCPCS: 95810 ==

== ENCOUNTER 2021-10-14 11:00 | Outpatient (CLI) | payer MEDICAID | END 2021-10-14 11:01 | disposition home or self-care (01) | LOC: SLR 11:00 | PROVIDERS: ATTEND Internal Medicine | DX: G47.33 Obstructive sleep apnea (adult) (pediatric) (principal) | CPT/HCPCS: 95811 ==

== ENCOUNTER 2021-12-22 00:28 | Emergency (ER) | payer MEDICAID ==
--- NOTE | 2021-12-22 09:47 | XRay Report ---
CHEST 2 VIEWS INDICATION: Chest Pain. COMPARISON: 08/29/2020 FINDINGS: SUPPORT DEVICES: None. HEART: Within normal limits. LUNGS/PLEURA: Mild streaky airspace disease in the right lung base and in the left midlung, essential ly unchanged since August. ADDITIONAL FINDINGS: None. IMPRESSION: 1. Essentially unchanged exam. Findings may at least in part be chronic. No new abnormality. Signer Name: Man Powers MD Signed: 12/22/2021 9:43 AM Workstation Name: [id number]
[2021-12-22 11:01] LABS: Basophils % (Auto) 0.4 % (0.0-1.8); Eosinophils # (Auto) 0.4 K/mm3 (0.0-0.4); Eosinophils % (Auto) 6.3 % (0.0-4.3); Hematocrit 43.9 % (30.3-42.9); Hemoglobin 14.3 gm/dl (10.1-14.3); Lymphocytes # (Auto) 2.2 K/mm3 (1.2-5.4); Lymphocytes % (Auto) 35.6 % (13.4-35.0); Mean Corpuscular HGB Conc 33 % (30-34); Mean Corpuscular Volume 90 fl (79-97); Monocytes # (Auto) 0.6 K/mm3 (0.0-0.8); Platelet Count 282 K/mm3 (140-440); Red Cell Distribution Width 15.1 % (13.2-15.2)
[2021-12-22 11:43] LABS: Blood Urea Nitrogen 10 mg/dL (7-17); Calcium 9.2 mg/dL (8.4-10.2); Hemolysis Index 5
[2021-12-22 11:47] LABS: BUN/Creatinine Ratio 17
[2021-12-22] MEDS ORDERED: ACETAMINOPHEN 325 MG TAB PO ONE (11:54)
[2021-12-22] MEDS ORDERED: SODIUM CHLORIDE 0.9% IRR 500 ML BOTTLE IR ONE (11:54)
[2021-12-22] MEDS ORDERED: METOCLOPRAMIDE 10 MG TAB PO ONE (11:54)
--- NOTE | 2021-12-22 12:01 | Emergency Department Report ---
ED General Adult HPI - General Chief complaint: Chest Pain Stated complaint: CP,CHEST TIGHTNESS,FALL Time Seen by Provider: 12/22/21 11:35 Source: patient, RN notes reviewed, old records reviewed Mode of arrival: Ambulatory Limitations: No Limitations - History of Present Illness Initial comments: The patient was evaluated in the emergency department for symptoms described in the history of present illness. He/she was evaluated in the context of the global COVID-19 pandemic, which necessitated consideration that the patient might be at risk for infection with the virus that causes COVID-19. Institutional protocols and algorithms that pertain to the evaluation of patients at risk for COVID-19 are in a state of rapid change based on information released by regulatory bodies including the CDC and federal and state organizations. These policies and algorithms were followed during the patient's care in the emergency department. Please note that these policies, procedures and recommendations changed on a rapid basis. Past medical history: COPD, nonischemic cardiomyopathy. Cardiac catheterization in 2018 demonstrated angiographically normal coronary arteries, with an ejection fraction of 35%. She had a CTA chest in 2019, negative for pulmonary embolism, and to low probability nuclear medicine studies, also in 2019, for pulmonary embolism. The patient is a 61-year-old female, who presents to the ER today with a complaint of left supraorbital pain, after mechanical trip and fall, landing on her anterior chest, and face. 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 She denies antecedent symptoms. She reports that she has chest wall pain, back pain and myalgias. The pain increases with palpation, and decreases with rest. She is not sure as to her tetanus vaccination status. Patient also reports a distant history of cataract surgery, but endorses no loss or change in visual acuity. She does endorse a left supraorbital laceration -: days(s) (Yesterday evening, while at work, approximately 12 hours ago) Location: head, chest, back Quality: aching Consistency: constant Improves with: rest Worsens with: movement - Related Data Home Medications Medication Instructions Recorded Confirmed Last Taken Biotin [Biotin 10,000 rapdis] 10,000 mcg PO DAILY 04/12/19 08/23/19 Unknown Diclofenac Sodium 75 mg PO DAILY 04/12/19 08/23/19 04/12/19 07:00 Gabapentin [Neurontin] 600 mg PO BID 0908/23/19 04/12/19 07:00 600 Losartan Potassium 50 mg PO DAILY 04/12/19 08/23/19 Unknown metFORMIN [Glucophage] 500 mg PO BID 04/12/19 08/23/19 Unknown Previous Rx's Medication Instructions Recorded Last Taken Type carvediloL [Coreg] 3.125 mg PO BID #60 tablet 04/14/19 Unknown Rx Benzonatate [Tessalon Perles] 100 mg PO Q8HR PRN #20 capsule 05/30/19 Unknown Rx ALBUTEROL NEB's [Proventil 0.083% 2.5 mg IH TID PRN #90 neb 08/01/19 Unknown Rx NEBS] Albuterol Mdi (or & Nicu Only) 2 puff IH QID PRN inha 08/01/19 Unknown Rx [ProAir HFA Inhaler] Albuterol Mdi (or & Nicu Only) 2 puff IH QID PRN #1 pump 08/01/19 Unknown Rx [ProAir HFA Inhaler] Benzonatate [Tessalon Perles] 100 mg PO Q8HR PRN capsule 08/01/19 Unknown Rx Budesonide [Pulmicort Respules] 1 mg IH Q12HRT nebu 08/01/19 Unknown Rx Furosemide [Lasix TAB] 40 mg PO QDAY #30 tab 08/01/19 Unknown Rx Ipratropium/Albuter (Nf) 2 puff IH QID #1 inha 08/01/19 Unknown Rx [Combivent Inhaler] Tiotropium Pryor [Spiriva 1 puff IH DAILY #1 mist.inhal 08/01/19 Unknown Rx Respimat] carvediloL [Coreg] 3.125 mg PO BID tablet 08/01/19 Unknown Rx Nicotine [Habitrol] 14 mg TD QDAY #7 patch 08/25/19 Unknown Rx Amoxicillin [Trimox CAP] 500 mg PO Q8H #21 capsule 02/16/20 Unknown Rx Amoxicillin/Potassium Clav 1 each PO BID 10 Days #20 tablet 06/28/20 Unknown Rx [Augmentin 875-125 Tablet] Acetaminophen [Acetaminophen TAB] 1,000 mg PO Q6HR PRN #30 tablet 07/23/20 U nknown Rx Albuterol Mdi (or & Nicu Only) 2 puff IH QID PRN #8.5 gram 07/23/20 Unknown Rx [ProAir HFA Inhaler] Amoxicillin/Potassium Clav 1 each PO BID 10 Days #20 tablet 07/23/20 Unknown Rx [Augmentin 875-125 Tablet] dexAMETHasone [Decadron] 4 mg PO Q12H 3 Days #6 tablet 07/23/20 Unknown Rx diphenhydrAMINE [Benadryl CAP] 25 mg PO Q8HR PRN #30 capsule 07/23/20 Unknown Rx Budesonide/Formoterol Fumarate 10.2 gm IH BID #1 hfa.aer.ad 08/29/20 Unknown Rx [Symbicort 160-4.5 Mcg Inhaler] guaiFENesin/CODEINE [Robitussin AC] 5 ml PO Q6H PRN #100 ml 08/29/20 Unknown Rx predniSONE [Deltasone] 20 mg PO BID 5 Days #10 tab 08/29/20 Unknown Rx Meloxicam [Mobic] 7.5 mg PO QDAY #10 tablet 07/15/21 Unknown Rx Acetaminophen [Non-Aspirin Extra 500 mg PO Q6HR PRN #30 tablet 12/22/21 Unknown Rx Strength] Ibuprofen [Motrin] 600 mg PO Q8H PRN #30 tablet 12/22/21 Unknown Rx Metoclopramide [Reglan] 10 mg PO QID PRN #30 tablet 12/22/21 Unknown Rx Allergies Allergy/AdvReac Type Severity Reaction Status Date / Time sulfamethoxazole Allergy Hives Verified 02/16/20 15:11 [From Bactrim] trimethoprim [From Bactrim] Allergy Hives Verified 02/16/20 15:11 ED Review of Systems ROS: Stated complaint: CP,CHEST TIGHTNESS,FALL Other details as noted in HPI Constitutional: denies: fever Eyes: denies: eye discharge ENT: denies: epistaxis Respiratory: shortness of breath (Chronic shortness of breath). denies: cough Cardiovascular: chest pain (Chest wall pain) Musculoskeletal: back pain Neurological: headache. denies: weakness ED Past Medical Hx - Past Medical History Hx Hypertension: Yes Hx Heart Attack/AMI: Yes (2004) Hx Congestive Heart Failure: Yes Hx Diabetes: Yes Hx Arthritis: Yes Hx Psychiatric Treatment: Yes (PTSD) Hx Asthma: Yes Hx COPD: Yes Hx HIV: No Additional medical history: hepatitis C, CAD, Sleep apnea, GERD. Above entered by nursing. Coronary artery disease is apparently a correct. I'm not sure a bout hepatitis C. The patient has a nonischemic cardiomyopathy with an EF of 35%. [place] - Surgical History Additional Surgical History: open heart surgery, left knee replacement, apoorva in right leg, surgical repair of disc in neck - Social History Smoking Status: Never Smoker Substance Use Type: None - Medications Home Medications: Home Medications Medication Instructions Recorded Confirmed Last Taken Type Biotin [Biotin 10,000 rapdis] 10,000 mcg PO DAILY 04/12/19 08/23/19 Unknown History Diclofenac Sodium 75 mg PO DAILY 04/12/19 08/23/19 04/12/19 07:00 History Gabapentin [Neurontin] 600 mg PO BID 04/12/19 08/23/19 04/12/19 07:00 History 600 Losartan Potassium 50 mg PO DAILY 04/12/19 08/23/19 Unknown History metFORMIN [Glucophage] 500 mg PO BID 04/12/19 08/23/19 Unknown History carvediloL [Coreg] 3.125 mg PO BID #60 tablet 04/14/19 08/23/19 Unknown Rx Benzonatate [Tessalon Perles] 100 mg PO Q8HR PRN #20 capsule 05/30/19 08/23/19 Unknown Rx ALBUTEROL NEB's [Proventil 0.083% 2.5 mg IH TID PRN #90 neb 08/01/19 08/23/19 Unknown Rx NEBS] Albuterol Mdi (or & Nicu Only) 2 puff IH QID PRN inha 08/01/19 08/23/19 Unknown Rx [ProAir HFA Inhaler] Albuterol Mdi (or & Nicu Only) 2 puff IH QID PRN #1 pump 08/01/19 08/23/19 Unknown Rx [ProAir HFA Inhaler] Benzonatate [Tessalon Perles] 100 mg PO Q8HR PRN capsule 08/01/19 08/23/19 Unknown Rx Budesonide [Pulmicort Respules] 1 mg IH Q12HRT nebu 08/01/19 08/23/19 Unknown Rx Furosemide [Lasix TAB] 40 mg PO QDAY #30 tab 08/01/19 08/23/19 Unknown Rx Ipratropium/Albuter (Nf) 2 puff IH QID #1 inha 08/01/19 08/23/19 Unknown Rx [Combivent Inhaler] Tiotropium Pryor [Spiriva 1 puff IH DAILY #1 mist.inhal 08/01/19 08/23/19 Unknown Rx Respimat] carvediloL [Coreg] 3.125 mg PO BID tablet 08/01/19 08/23/19 Unknown Rx Nicotine [Habitrol] 14 mg TD QDAY #7 patch 08/25/19 Unknown Rx Amoxicillin [Trimox CAP] 500 mg PO Q8H #21 capsule 02/16/20 Unknown Rx Amoxicillin/Potassium Clav 1 each PO BID 10 Days #20 tablet 06/28/20 Unknown Rx [Augmentin 875-125 Tablet] Acetaminophen [Acetaminophen TAB] 1,000 mg PO Q6HR PRN #30 tablet 07/23/20 Unknown Rx Albuterol Mdi (or & Nicu Only) 2 puff IH QID PRN #8.5 gram 07/23/20 Unknown Rx [ProAir HFA Inhaler] Amoxicillin/Potassium Clav 1 each PO BID 10 Days #20 tablet 07/23/20 Unknown Rx [Augmentin 875-125 Tablet] dexAMETHasone [Decadron] 4 mg PO Q12H 3 Days #6 tablet 07/23/20 Unknown Rx diphenhydrAMINE [Benadryl CAP] 25 mg PO Q8HR PRN #30 capsule 07/23/20 Unknown Rx Budesonide/Formoterol Fumarate 10.2 gm IH BID #1 hfa.aer.ad 08/29/20 Unknown Rx [Symbicort 160-4.5 Mcg Inhaler] guaiFENesin/CODEINE [Robitussin AC] 5 ml PO Q6H PRN #100 ml 08/29/20 Unknown Rx predniSONE [Deltasone] 20 mg PO BID 5 Days #10 tab 08/29/20 Unknown Rx Meloxicam [Mobic] 7.5 mg PO QDAY #10 tablet 07/15/21 Unknown Rx Acetaminophen [Non-Aspirin Extra 500 mg PO Q6HR PRN #30 tablet 12/22/21 Unknown Rx Strength] Ibuprofen [Motrin] 600 mg PO Q8H PRN #30 tablet 12/22/21 Unknown Rx Metoclopramide [Reglan] 10 mg PO QID PRN #30 tablet 12/22/21 Unknown Rx ED Physical Exam - General Limitations: No Limitations General appearance: alert, in no apparent distress - Head Head exam: Present: normocephalic, other (There is a left linear supraorbital laceration, approximately 2.5 cm.) - Eye Eye exam: Present: normal appearance (Bilateral pupils are status post cataract surgery, and do not react to light), EOMI, other (Visual acuity intact to finger counting, color perception, reading at a close distance). Absent: nystagmus - ENT ENT exam: Present: normal exam, normal orophraynx, mucous membranes moist, normal external ear exam - Neck Neck exam: Present: normal inspection, full ROM. Absent: tenderness, meningismus - Respiratory Respiratory exam: Present: normal lung sounds bilaterally, chest wall tenderness. Absent: respiratory distress, wheezes, rales, rhonchi, stridor - Cardiovascular Cardiovascular Exam: Present: regular rate, normal rhythm, normal heart sounds. Absent: bradycardia, tachycardia, irregular rhythm, systolic murmur, diastolic murmur, rubs, gallop - GI/Abdominal GI/Abdominal exam: Present: soft. Absent: distended, tenderness, guarding, r ebound, rigid, pulsatile mass - Extremities Exam Extremities exam: Present: normal inspection, full ROM, other (2+ pulses noted in the bilateral upper and lower extremities. There is no palpable cord. negative Homans sign. Muscular compartments are soft. The pelvis is stable.). Absent: calf tenderness - Back Exam Back exam: Present: normal inspection, paraspinal tenderness. Absent: tenderness, CVA tenderness (R), CVA tenderness (L), vertebral tenderness - Neurological Exam Neurological exam: Present: alert, oriented X3, normal gait, other (No facial droop. Tongue midline. Extraocular movements intact bilaterally. Facial sensation intact to light touch in V1, V2, V3 distribution bilaterally. 5 and a 5 strength in 4 extremities. Sensation intact to light touch in 4 extremities.). Absent: motor sensory deficit - Psychiatric Psychiatric exam: Present: normal affect, normal mood - Skin Skin exam: Present: warm, dry, intact, normal color. Absent: rash ED Course Vital Signs 12/22/21 12/22/21 01:01 13:53 Temperature 97.9 F Pulse Rate 65 100 H Respiratory 16 18 Rate Blood Pressure 137/76 Blood Pressure 130/92 [Left] O2 Sat by Pulse 93 99 Oximetry - Reevaluation(s) Reevaluation #1: 12/22/21 12:08 Differential diagnosis, including but not limited to: Closed head injury, supraorbital laceration, chest wall pain, costochondritis, intracranial injury Assessment and plan: 61-year-old female presenting with closed head injury, supraorbital laceration, chest wall pain and back pain after mechanical fall. Troponins are obtained more than 8 hours after initial insult, are negative x1. Acute myocardial infarction is ruled out, EKG unchanged from prior, therefore, blunt cardiac injury is very unlikely. Patient ambulatory with a steady gait, clinically sober with a GCS of 15. Patient is clinically sober at this time. The cervical spine is cleared through nexus and libyan c spine rule Patient denies DVT/PE risk factors, she is low risk by Wells criteria for pulmonary embolism. O2 sat initially 93%, likely secondary to known history of underlying COPD. X-ray of the chest essentially unremarkable for significant or emergent findings. Noncontrast CT scan of the brain negative for acute/emergent findings. Facial laceration is repaired. Patient educated as to the natural history of chest wall pain, mechanical pain, closed head injury and concussion. The patient is observed in this department for hours without clinical decompensation. Return precautions are reviewed. All questions answered. 12/22/21 12:20 Reevaluation #2: 12/22/21 14:01 Vital signs are improved. Patient standing with a steady gait. CT scan brain negative for acute findings. Discharged with outpatient follow-up. Return precautions are reviewed. All questions answered - Laceration /Wound Repair Left Upper Lateral Face Wound Location: face Wound Length (cm): 2 Wound's Depth, Shape: into muscle, linear Wound Explored: clean Irrigated w/ Saline (ccs): 500 Betadine Prep?: Yes Anesthesia: 1% Lidocaine Volume Anesthetic (ccs): 6 Wound Debrided: minimal Suture Size/Type: 5:0 (Monofilament, interrupted) Number of Sutures: 5 Deep Layer Suture Size/Type: 4:0 (Absorbable, 2 sutures placed) Number Deep Layer Sutures: 2 Sterile Dressing Applied?: Yes ED Medical Decision Making - Lab Data Result diagrams: 12/22/21 10:09 12/22/21 10:09 Vital Signs 12/22/21 01:01 Temperature 97.9 F Pulse Rate 65 Respiratory 16 Rate Blood Pressure 137/76 O2 Sat by Pulse 93 Oximetry Lab Results 12/22/21 12/22/21 Range/Units 10:09 10:09 WBC 6.2 (4.5-11.0) K/mm3 RBC 4.90 (3.65-5.03) M/mm3 Hgb 14.3 (10.1-14.3) gm/dl Hct 43.9 H (30.3-42.9) % MCV 90 (79-97) fl MCH 29 (28-32) pg MCHC 33 (30-34) % RDW 15.1 (13.2-15.2) % Plt Count 282 (140-440) K/mm3 Lymph % (Auto) 35.6 H (13.4-35.0) % [place] % (Auto) 9.0 H (0.0-7.3) % Eos % (Auto) 6.3 H (0.0-4.3) % Baso % (Auto) 0.4 (0.0-1.8) % Lymph # (Auto) 2.2 (1.2-5.4) K/mm3 [place] # (Auto) 0.6 (0.0-0.8) K/mm3 Eos # (Auto) 0.4 (0.0-0.4) K/mm3 Baso # (Auto) 0.0 (0.0-0.1) K/mm3 Seg Neutrophils % 48.7 (40.0-70.0) % Seg Neutrophils # 3.0 (1.8-7.7) K/mm3 Sodium 139 (137-145) mmol/L Potassium 4.1 (3.6-5.0) mmol/L Chloride 105.0 (98-107) mmol/L Carbon Dioxide 25 (22-30) mmol/L Anion Gap 13 mmol/L BUN 10 (7-17) mg/dL Creatinine 0.6 (0.6-1.2) mg/dL Estimated GFR > 60 ml/min BUN/Creatinine Ratio 17 % Glucose 92 (65-100) mg/dL Calcium 9.2 (8.4-10.2) mg/dL Troponin T < 0.010 (0.00-0.029) ng/mL - EKG Data -: EKG Interpreted by Ia EKG shows normal: sinus rhythm Rate: normal - EKG Data Interpretation: unchanged when compared t 12/22/21 12:04 The EKG is interpreted at 01: 02 Sinus rhythm, 60 bpm. Normal axis, normal P wave axis, nonspecific T wave abnormality V2. This is an abnormal EKG. This is not a STEMI. The intervals are unremarkable and within normal limits. This appears to be unchanged from a prior EKG from August 2020 - Radiology Data Radiology results: pending, report reviewed, image reviewed CHEST 2 VIEWS INDICATION: Chest Pain. COMPARISON: 08/29/2020 FINDINGS: SUPPORT DEVICES: None. HEART: Within normal limits. LUNGS/PLEURA: Mild streaky airspace disease in the right lung base and in the left midlung, essentially unchanged since August. ADDITIONAL FINDINGS: None. IMPRESSION: 1. Essentially unchanged exam. Findings may at least in part be chronic. No new abnormality. Signer Name: Man Powers MD Signed: 12/22/2021 8:43 AM CTA CHEST WITH CONTRAST INDICATION : dypsnea. TECHNIQUE: Axial imaging performed through the chest, with contrast bolus timing set to maximize opacification of the pulmonary arteries. Sagittal and coronal reformatted images. 3-plane MIP reformatted images were obtained. All CT scans at this location are performed using CT dose reduction for ALARA by means of automated exposure control. 100 mL of intravenous contrast administered. COMPARISON: None FINDINGS: Bolus: Contrast bolus timing is adequate. PTE: No filling defect is present to suggest PTE. Mediastinum: Mild cardiomegaly is evident. No pericardial effusion. The mediastinal vessels, thyroid gland, tracheobronchial tree and esophagus are within normal limits. No pathologic mediastinal adenopa thy. Lungs: Lungs are clear. Bones: No acute osseous findings. Chronic left rib fractures are noted. Upper abdomen: Limited imaging of the upper abdomen shows nothing acute. IMPRESSION: No evidence for pulmonary embolus. Mild cardiomegaly. Clear lungs. Signer Name: Ramu Whitfield Jr, MD Signed: 04/12/2019 2:41 PM Workstation Name: [id number] . CT head without contrast INDICATION : closed head injry. TECHNIQUE: Axial imaging performed from the skull apex through the skull base without the use of contrast. All CT scans at this location are performed using CT dose reduction for ALARA by means of automated exposure control. COMPARISON: None FINDINGS: Parenchyma: No acute intracranial hemorrhage or parenchymal abnormality. Ventricles: Ventricles are normal in size and appear symmetric. Soft tissues: Small soft tissue laceration with soft tissue swelling over the left frontotemp oral scalp where there is a tiny focus of subcutaneous air. Bones: No acute osseous abnormality. Sinuses: Sinuses and mastoid air cells are clear. IMPRESSION: Soft tissue findings as above. No acute intracranial abnormality. Signer Name: Man Powers MD Signed: 12/22/2021 12:49 PM Workstation Name: [id number] Critical care attestation.: If time is entered above; I have spent that time in minutes in the direct care of this critically ill patient, excluding procedure time. ED Disposition Clinical Impression: Closed head injury, Facial laceration, Chest wall pain, Fall Disposition: HOME / SELF CARE / HOMELESS Is pt being admited?: No Does the pt Need Aspirin: No Condition: Good Instructions: Head Injury, Adult, Chest Wall Pain, [id number], Sutured Wound Care, [id number] Additional Instructions: As we discussed, pain typically gets worse before it gets better after blunt trauma rest and avoid heavy lifting, and avoid strenuous physical activity. Engage in physical activities as tolerated. For pain, the patient can take ibuprofen, 600 mg with food every 6 hours, alternating with acetaminophen, 650 mg every 4 hours, also which can be purchased [id number]. Return to the ER right away with new pain, worsened pain, migration of pain, fevers, chills, confusion, weakness, numbness, intractable nausea or vomiting, severe chest pain, or severe abdominal pain. Patient may have a concussion/closed head injury, and may experience headache, forgetfulness, dizziness, lightheadedness, sensitivity to light, and sensitivity to sound. Recommend that patient avoid contact sports, strenuous physical activities, athletics, and follow-up with a primary care doctor within the week for evaluation of closed head injury. Patient may wash facial laceration sites with gentle soap and water, follow-up with a primary care doctor, urgent care center, will return to this emergency room to have sutures removed. Patient may take the prescribed Reglan as needed for headache and nausea. Please continue home medications otherwise. Please return to the emergency room right away with new pain, worsened pain, migration of pain, projectile vomiting, change in mental status, confusion, inability tolerate liquid feeds, new, worsened or different symptoms not present on the initial emergency room evaluation Alternate ice packs and heat packs as needed for physical pain. Prescriptions: Ibuprofen [Motrin] 600 mg PO Q8H PRN #30 tablet PRN Reason: Pain Acetaminophen [Non-Aspirin Extra Strength] 500 mg PO Q6HR PRN #30 tablet PRN Reason: Pain , Severe (7-10) Metoclopramide [Reglan] 10 mg PO QID PRN #30 tablet PRN Reason: Nausea Referrals: EVERETT MAHAN MD [Staff Physician] - 3-5 Days [facility] [Provider Group] - 3-5 Days Forms: Work/School Release Form(ED)
[2021-12-22] MEDS ORDERED: TETANUS,DIPH,PERTUSS(ACELL) VACCINE 0.5 ML SYRINGE IM ONE (12:02)
[2021-12-22] MEDS ORDERED: LIDOCAINE (1%) 10 MG/1 ML VIAL 20 ML MDV INFILTRATI ONE (12:24)
--- NOTE | 2021-12-22 13:53 | Cat Scan Report ---
. CT head without contrast INDICATION : closed head injry. TECHNIQUE: Axial imaging performed from the skull apex through the skull base without the use of con trast. All CT scans at this location are performed using CT dose reduction for ALARA by means of aut omated exposure control. COMPARISON: None FINDINGS: Parenchyma: No acute intracranial hemorrhage or parenchymal abnormality. Ventricles: Ventricles are normal in size and appear symmetric. Soft tissues: Small soft tissue laceration with soft tissue swelling over the left frontotemporal sc alp where there is a tiny focus of subcutaneous air. Bones: No acute osseous abnormality. Sinuses: Sinuses and mastoid air cells are clear. IMPRESSION: Soft tissue findings as above. No acute intracranial abnormality. Signer Name: Man Powers MD Signed: 12/22/2021 1:49 PM Workstation Name: [id number]
[2021-12-22 13:54] VITALS: BP 130/92
[2021-12-22] MEDS ORDERED: KETOROLAC 30 MG/1 ML INJ IM ONE (14:01)
== END 2021-12-22 14:18 | disposition home or self-care (01) ==
LOC: ED 00:28
DX: S01.81XA Laceration without foreign body of other part of head, initial encounter (principal); S09.90XA Unspecified injury of head, initial encounter; R07.89 Other chest pain; I11.9 Hypertensive heart disease without heart failure; I50.9 Heart failure, unspecified; M19.90 Unspecified osteoarthritis, unspecified site; F43.10 Post-traumatic stress disorder, unspecified; J44.9 Chronic obstructive pulmonary disease, unspecified; G47.30 Sleep apnea, unspecified; K21.9 Gastro-esophageal reflux disease without esophagitis; Z98.890 Other specified postprocedural states; Z88.2 Allergy status to sulfonamides; W19.XXXA Unspecified fall, initial encounter; Y93.89 Activity, other specified; Y92.89 Other specified places as the place of occurrence of the external cause; Y99.8 Other external cause status
CPT/HCPCS: 12051; 36415; 70450; 71046; 80048; 84484; 85025; 90471; 90715; 93005; 96372; 99284; J1885

== ENCOUNTER 2021-12-27 11:44 | Emergency (ER) | payer MEDICAID ==
[2021-12-27 12:53] VITALS: BP 121/62
--- NOTE | 2021-12-27 13:16 | Emergency Department Report ---
ED Recheck HPI - General Chief Complaint: Laceration/Recheck/Suture Stated Complaint: SUTURE REMOVAL Time Seen by Provider: 12/27/21 12:58 Source: patient Mode of arrival: Ambulatory Limitations: No Limitations - History of Present Illness MD Complaint: suture/staple removal Initial Visit For: laceration Returns Today for: staple/Stitch removal - Related Data Home Medications Medication Instructions Recorded Confirmed Last Taken Biotin [Biotin 10,000 rapdis] 10,000 mcg PO DAILY 04/12/19 08/23/19 Unknown Diclofenac Sodium 75 mg PO DAILY 04/12/19 08/23/19 04/12/19 07:00 Gabapentin [Neurontin] 600 mg PO BID 04/12/19 08/23/19 04/12/19 07:00 600 Losartan Potassium 50 mg PO DAILY 04/12/19 08/23/19 Unknown metFORMIN [Glucophage] 500 mg PO BID 04/12/19 08/23/19 Unknown Previous Rx's Medication Instructions Recorded Last Taken Type carvediloL [Coreg] 3.125 mg PO BID #60 tablet 04/14/19 Unknown Rx Benzonatate [Tessalon Perles] 100 mg PO Q8HR PRN #20 capsule 05/30/19 Unknown Rx ALBUTEROL NEB's [Proventil 0.083% 2.5 mg IH TID PRN #90 neb 08/01/19 Unknown Rx NEBS] Albuterol Mdi (or & Nicu Only) 2 puff IH QID PRN inha 08/01/19 Unknown Rx [ProAir HFA Inhaler] Albuterol Mdi (or & Nicu Only) 2 puff IH QID PRN #1 pump 08/01/19 Unknown Rx [ProAir HFA Inhaler] Benzonatate [Tessalon Perles] 100 mg PO Q8HR PRN capsule 08/01/19 Unknown Rx Budesonide [Pulmicort Respules] 1 mg IH Q12HRT nebu 08/01/19 Unknown Rx Furosemide [Lasix TAB] 40 mg PO QDAY #30 tab 08/01/19 Unknown Rx Ipratropium/Albuter (Nf) 2 puff IH QID #1 inha 08/01/19 Unknown Rx [Combivent Inhaler] Tiotropium [place] [Spiriva 1 puff IH DAILY #1 mist.inhal 08/01/19 Unknown Rx Respimat] carvediloL [Coreg] 3.125 mg PO BID tablet 08/01/19 Unknown Rx Nicotine [Habitrol] 14 mg TD QDAY #7 patch 08/25/19 Unknown Rx Amoxicillin [Trimox CAP] 500 mg PO Q8H #21 capsule 02/16/20 Unknown Rx Amoxicillin/Potassium Clav 1 each PO BID 10 Days #20 tablet 06/28/20 Unknown Rx [Augmentin 875-125 Tablet] Acetaminophen [Acetaminophen TAB] 1,000 mg PO Q6HR PRN #30 tablet 07/23/20 Unknown Rx Albuterol Mdi (or & Nicu Only) 2 puff IH QID PRN #8.5 gram 07/23/20 Unknown Rx [ProAir HFA Inhaler] Amoxicillin/Potassium Clav 1 each PO BID 10 Days #20 tablet 07/23/20 Unknown Rx [Augmentin 875-125 Tablet] dexAMETHasone [Decadron] 4 mg PO Q12H 3 Days #6 tablet 07/23/20 Unknown Rx diphenhydrAMINE [Benadryl CAP] 25 mg PO Q8HR PRN #30 capsule 07/23/20 Unknown Rx Budesonide/Formoterol Fumarate 10.2 gm IH BID #1 hfa.aer.ad 08/29/20 Unknown Rx [Symbicort 160-4.5 Mcg Inhaler] guaiFENesin/CODEINE [Robitussin AC] 5 ml PO Q6H PRN #100 ml 08/29/20 Unknown Rx predniSONE [Deltasone] 20 mg PO BID 5 Days #10 tab 08/29/20 Unknown Rx Meloxicam [Mobic] 7.5 mg PO QDAY #10 tablet 07/15/21 Unknown Rx Acetaminophen [Non-Aspirin Extra 500 mg PO Q6HR PRN #30 tablet 12/22/21 Unknown Rx Strength] Ibuprofen [Motrin] 600 mg PO Q8H PRN #30 tablet 12/22/21 Unknown Rx Metoclopramide [Reglan] 10 mg PO QID PRN #30 tablet 12/22/21 Unknown Rx Allergies Allergy/AdvReac Type Severity Reaction Status Date / Time sulfamethoxazole Allergy Hives Verified 12/27/21 12:57 [From Bactrim] trimethoprim [From Bactrim] Allergy Hives Verified 12/27/21 12:57 ED Review of Systems ROS: Stated complaint: SUTURE REMOVAL Other details as noted in HPI Comment: All other systems reviewed and negative Constitutional: denies: fever ED Past Medical Hx - Past Medical History Previous Medical History?: Yes Hx Hypertension: Yes Hx Heart Attack/AMI: Yes (2004) Hx Congestive Heart Failure: Yes Hx Diabetes: Yes Hx Arthritis: Yes Hx Psychiatric Treatment: Yes (PTSD) Hx Asthma: Yes Hx COPD: Yes Hx HIV: No Additional medical history: hepatitis C, CAD, Sleep apnea, GERD. Above entered by nursing. Coronary artery disease is apparently a correct. I'm not sure ab out hepatitis C. The patient has a nonischemic cardiomyopathy with an EF of 35%. [place] - Surgical History Additional Surgical History: open heart surgery, left knee replacement, apoorva in right leg, surgical repair of disc in neck - Social History Smoking Status: Never Smoker Substance Use Type: None - Medications Home Medications: Home Medications Medication Instructions Recorded Confirmed Last Taken Type Biotin [Biotin 10,000 rapdis] 10,000 mcg PO DAILY 04/12/19 08/23/19 Unknown History Diclofenac Sodium 75 mg PO DAILY 04/12/19 08/23/19 04/12/19 07:00 History Gabapentin [Neurontin] 600 mg PO BID 04/12/19 08/23/19 04/12/19 07:00 History 600 Losartan Potassium 50 mg PO DAILY 04/12/19 08/23/19 Unknown History metFORMIN [Glucophage] 500 mg PO BID 04/12/19 08/23/19 Unknown History carvediloL [Coreg] 3.125 mg PO BID #60 tablet 04/14/19 08/23/19 Unknown Rx Benzonatate [Tessalon Perles] 100 mg PO Q8HR PRN #20 capsule 05/30/19 08/23/19 Unknown Rx ALBUTEROL NEB's [Proventil 0.083% 2.5 mg IH TID PRN #90 neb 08/01/19 08/23/19 Unknown Rx NEBS] Albuterol Mdi (or & Nicu Only) 2 puff IH QID PRN inha 08/01/19 08/23/19 Unknown Rx [ProAir HFA Inhaler] Albuterol Mdi (or & Nicu Only) 2 puff IH QID PRN #1 pump 08/01/19 08/23/19 Unknown Rx [ProAir HFA Inhaler] Benzonatate [Tessalon Perles] 100 mg PO Q8HR PRN capsule 08/01/19 08/23/19 Unknown Rx Budesonide [Pulmicort Respules] 1 mg IH Q12HRT nebu 08/01/19 08/23/19 Unknown Rx Furosemide [Lasix TAB] 40 mg PO QDAY #30 tab 08/01/19 08/23/19 Unknown Rx Ipratropium/Albuter (Nf) 2 puff IH QID #1 inha 08/01/19 08/23/19 Unknown Rx [Combivent Inhaler] Tiotropium [place] [Spiriva 1 puff IH DAILY #1 mist.inhal 08/01/19 08/23/19 Unknown Rx Respimat] carvediloL [Coreg] 3.125 mg PO BID tablet 08/01/19 08/23/19 Unknown Rx Nicotine [Habitrol] 14 mg TD QDAY #7 patch 08/25/19 Unknown Rx Amoxicillin [Trimox CAP] 500 mg PO Q8H #21 capsule 02/16/20 Unknown Rx Amoxicillin/Potassium Clav 1 each PO BID 10 Days #20 tablet 06/28/20 Unknown Rx [Augmentin 875-125 Tablet] Acetaminophen [Acetaminophen TAB] 1,000 mg PO Q6HR PRN #30 tablet 07/23/20 Unknown Rx Albuterol Mdi (or & Nicu Only) 2 puff IH QID PRN #8.5 gram 07/23/20 Unknown Rx [ProAir HFA Inhaler] Amoxicillin/Potassium Clav 1 each PO BID 10 Days #20 tablet 07/23/20 Unknown Rx [Augmentin 875-125 Tablet] dexAMETHasone [Decadron] 4 mg PO Q12H 3 Days #6 tablet 07/23/20 Unknown Rx diphenhydrAMINE [Benadryl CAP] 25 mg PO Q8HR PRN #30 capsule 07/23/20 Unknown Rx Budesonide/Formoterol Fumarate 10.2 gm IH BID #1 hfa.aer.ad 08/29/20 Unknown Rx [Symbicort 160-4.5 Mcg Inhaler] guaiFENesin/CODEINE [Robitussin AC] 5 ml PO Q6H PRN #100 ml 08/29/20 Unknown Rx predniSONE [Deltasone] 20 mg PO BID 5 Days #10 tab 08/29/20 Unknown Rx Meloxicam [Mobic] 7.5 mg PO QDAY #10 tablet 07/15/21 Unknown Rx Acetaminophen [Non-Aspirin Extra 500 mg PO Q6HR PRN #30 tablet 12/22/21 Unknown Rx Strength] Ibuprofen [Motrin] 600 mg PO Q8H PRN #30 tablet 12/22/21 Unknown Rx Metoclopramide [Reglan] 10 mg PO QID PRN #30 tablet 12/22/21 Unknown Rx ED Physical Exam - General Limitations: No Limitations General appearance: alert, in no apparent distress - Head Head exam: Absent: atraumatic - Expanded Head Exam Expanded Head exam: Present: laceration 1 - Sutured laceration that is healing and well approximated. No drainage erythema edema or tenderness noted. - Eye Eye exam: Present: normal appearance. Absent: conjunctival injection - Neck Neck exam: Present: normal inspection - Respiratory Respiratory exam: Absent: respiratory distress - Cardiovascular Cardiovascular Exam: Present: regular rate - GI/Abdominal GI/Abdominal exam: Absent: distended - Extremities Exam Extremities exam: Present: normal inspection - Neurological Exam Neurological exam: Present: alert, oriented X3 - Psychiatric Psychiatric exam: Present: normal affect, normal mood - Skin Skin exam: Present: warm, dry, intact, normal color ED Course Vital Signs 12/27/21 12:51 Temperature 97.4 F L Pulse Rate 72 Respiratory 16 Rate Blood Pressure 121/62 [Left] O2 Sat by Pulse 100 Oximetry - Procedure Description Procedures done: 5 sutures removed from left forehead. Well approximated, no e rythema edema drainage or tenderness noted. Patient tolerated well. ED Recheck MDM - Differential Diagnosis Suture/Staple Removal - Medical Decision Making Sutures removed per procedure note, patient tolerated well. She is advised to follow-up with her primary care provider as needed, and return to the emergency department as needed. Critical care attestation.: If time is entered above; I have spent that time in minutes in the direct care of this critically ill patient, excluding procedure time. ED Disposition Clinical Impression: Visit for suture removal Disposition: HOME / SELF CARE / HOMELESS Is pt being admited?: No Does the pt Need Aspirin: No Condition: Stable Instructions: Suture Removal, Care After Additional Instructions: Follow-up with primary care provider. Return to the emergency department as needed. Referrals: NOAM JON MD [Staff Physician] - 3-5 Days Time of Disposition: 13:15
== END 2021-12-27 13:33 | disposition home or self-care (01) ==
LOC: ED 11:44
DX: S01.81XD Laceration without foreign body of other part of head, subsequent encounter (principal); X58.XXXD Exposure to other specified factors, subsequent encounter; I11.0 Hypertensive heart disease with heart failure; I50.9 Heart failure, unspecified; I21.9 Acute myocardial infarction, unspecified; E11.9 Type 2 diabetes mellitus without complications; M19.90 Unspecified osteoarthritis, unspecified site; J45.909 Unspecified asthma, uncomplicated; Z13.30 Encounter for screening examination for mental health and behavioral disorders, unspecified; Z91.09 Other allergy status, other than to drugs and biological substances; Z79.899 Other long term (current) drug therapy
CPT/HCPCS: 99282